=== PATIENT | female | born 1940 | race Caucasian/White ===

== ENCOUNTER 2017-04-20 12:28 | Observation (INO) | payer MEDICARE, SELFPAY ==
[2017-04-20 12:38] VITALS: BP 142/65; PULSE 66; RESP 18; TEMP 36.8; O2SAT 100; BMI 31.2
--- NOTE | 2017-04-20 12:49 | XR_ITS ---
XR chest 2V HISTORY: Right-sided pain with sweating ITS.REASON: RIGHT SHOULDER PAIN,NO INJURYU ORDERING PHYSICIAN: Daniel Rubio MD PATIENT AGE: 77 years COMPARISON: 10/18/2012 FINDINGS: The cardiomediastinal silhouette and pulmonary vascularity are within normal limits. The lungs are clear without infiltrates, suspicious nodules, or pleural effusions. There is evidence of old granulomatous disease. On the lateral view there is a nodular opacity along the lower aspect of the heart appears partially calcified and may be due to a lymph node. No acute bony abnormalities. IMPRESSION: No change with no acute finding
--- NOTE | 2017-04-20 13:06 | HMH.EDGENADL ---
ED Disposition Clinical Impression: Pre-syncope, HTN (hypertension), Hyperlipidemia, Chest pain, Coronary artery calcification Disposition: Still a Patient Condition on Discharge: Good Referrals: Sloane Sweeney APRN [Primary Care Provider] - - Critical Care Critical Care Time: No Attestation: On 04/20/17, the high probability of a clinically significant, sudden or life threatening deterioration of the following system(s) required my full and direct attention, intervention and personal management. The time I documented below is in addition to time spent performing reported procedures but includes the following listed in this critical care notation. Medical Decision Making - Medical Records Medical records reviewed: Yes: I reviewed the patient's medical records. Vital Signs: 04/20/17 12:38 Temperature 98.2 F Temperature Source Oral Pulse Rate [Right Brachial] 66 Respiratory Rate 18 Blood Pressure [Right Arm] 142/65 Blood Pressure Mean [Right Arm] 90 Blood Pressure Source [Right Arm] Automatic Cuff Blood Pressure Position [Right Arm] Sitting 02 Sat by Pulse Oximetry 100 Oxygen Delivery Method Room Air - Lab Data Lab Results 04/20/17 13:15: WBC 12.0 H, RBC 3.74 L, Hgb 12.4, Hct 36.6 L, MCV 98.0, MCH 33.3 H, MCHC 34.0, RDW 12.6, Plt Count 196, MPV 8.7, Neut % (Auto) 85.4 H, Lymph % (Auto) 9.6 L, [place] % (Auto) 3.8, Eos % (Auto) 1.0, Baso % (Auto) 0.2, Neut # (Auto) 10.3 H, Lymph # (Auto) 1.1, [place] # (Auto) 0.5, Eos # (Auto) 0.1, Baso # (Auto) 0.0, Total Counted 100, Neutrophils % (Manual) 85 H, Band Neutrophils % 1.0, Lymphocytes % (Manual) 8 L, Monocytes % (Manual) 6, Platelet Estimate Normal, RBC Morphology Normal 04/20/17 13:15: D-Dimer 798 H* 04/20/17 13:15: B-Natriuretic Peptide 100 04/20/17 13:55: Sodium 139, Potassium 5.3 H, Chloride 104, Carbon Dioxide 27, Anion Gap 13.3, BUN 34 H, Creatinine 0.95, Estimated Creat Clear 65, Estimated GFR 57 L, Est GFR ( Amer) 69, Glucose 109 H, Calcium 9.1, Total Bilirubin 0.6, AST 14 L, ALT 23, Alkaline Phosphatase 55, Total Creatine Kinase 85, CK-MB (CK-2) 0.7, CK-MB (CK-2) Rel Index 0.8, Troponin I < 0.02, Total Protein 7.8, Albumin 3.7, Globulin 4.1 H, Albumin/Globulin Ratio 0.9 L 04/20/17 13:55: Lipase 68 L Result diagrams: 04/20/17 13:15 04/20/17 13:55 Orders (Tests/Meds): ED MEDICATIONS Discontinued Medications Generic Name Dose Route Start Last Admin Trade Name Freq PRN Reason Stop Dose Admin Iopamidol 75 ml 04/20/17 15:06 04/20/17 15:08 [id number]; 75ml Vial IV 04/20/17 15:07 75 ml ONCE ONE Administration Sodium Chloride 20 ml 04/20/17 15:06 04/20/17 15:08 Rad-Ns 20ml Vial IV 04/20/17 15:07 20 ml ONCE ONE Administration Sodium Chloride 10 ml 04/20/17 15:06 04/20/17 15:08 Rad-Saline Flush 10ml Syringe IV 04/20/17 15:07 10 ml ONCE ONE Administration Sodium Chloride 20 ml 04/20/17 15:07 04/20/17 15:09 Rad-Ns 20ml Vial IV 04/20/17 15:08 20 ml ONCE ONE Administration - CT Data CT Scan: Chest Time Received: 15:[address] Reviewed: Yes: I discussed the CT results w/the radiologist Preliminary Findings: Abnormal (No pulmonary embolism chronic changes. Dr. Clarke) - ECG Data Tracing #1 Normal sinus rhythm 67% per minute early repolarization no acute findings. ECG initial impression date: 04/20/17 ECG initial impression time: 13:11 - Magdy Inquiry Pt receiving controlled substance: No Magdy was queried for this patient: No Medical Decision Making Narrative: Due to elevated diameter the patient underwent a CT scan was negative for pulmonary embolism. Is positive for coronary artery calcification. I called her primary care physician spoke with Nhung to admit. Patient was notified. General Adult HPI - General Chief complaint: PAIN Stated complaint: right shoulder pain, cold sweat pale, dizzy Mode of Arrival: Ambulatory Limitations: No Limitations Description of Symptoms
--- NOTE | 2017-04-20 13:09 | ED_ITS ---
ED Disposition Clinical Impression: Pre-syncope, HTN (hypertension), Hyperlipidemia, Chest pain, Coronary artery calcification Disposition: Still a Patient Condition on Discharge: Good Referrals: Sloane Sweeney APRN [Primary Care Provider] - - Critical Care Critical Care Time: No Attestation: On 04/20/17, the high probability of a clinically significant, sudden or life threatening deterioration of the following system(s) required my full and direct attention, intervention and personal management. The time I documented below is in addition to time spent performing reported procedures but includes the following listed in this critical care notation. Medical Decision Making - Medical Records Medical records reviewed: Yes: I reviewed the patient's medical records. Vital Signs: 04/20/17 12:38 Temperature 98.2 F Temperature Source Oral Pulse Rate [Right Brachial] 66 Respiratory Rate 18 Blood Pressure [Right Arm] 142/65 Blood Pressure Mean [Right Arm] 90 Blood Pressure Source [Right Arm] Automatic Cuff Blood Pressure Position [Right Arm] Sitting 02 Sat by Pulse Oximetry 100 Oxygen Delivery Method Room Air - Lab Data Lab Results 04/20/17 13:15: WBC 12.0 H, RBC 3.74 L, Hgb 12.4, Hct 36.6 L, MCV 98.0, MCH 33.3 H, MCHC 34.0, RDW 12.6, Plt Count 196, MPV 8.7, Neut % (Auto) 85.4 H, Lymph % (Auto) 9.6 L, [place] % (Auto) 3.8, Eos % (Auto) 1.0, Baso % (Auto) 0.2, Neut # (Auto) 10.3 H, Lymph # (Auto) 1.1, [place] # (Auto) 0.5, Eos # (Auto) 0.1, Baso # (Auto) 0.0, Total Counted 100, Neutrophils % (Manual) 85 H, Band Neutrophils % 1.0, Lymphocytes % (Manual) 8 L, Monocytes % (Manual) 6, Platelet Estimate Normal, RBC Morphology Normal 04/20/17 13:15: D-Dimer 798 H* 04/20/17 13:15: B-Natriuretic Peptide 100 04/20/17 13:55: Sodium 139, Potassium 5.3 H, Chloride 104, Carbon Dioxide 27, Anion Gap 13.3, BUN 34 H, Creatinine 0.95, Estimated Creat Clear 65, Estimated GFR 57 L, Est GFR ( Amer) 69, Glucose 109 H, Calcium 9.1, Total Bilirubin 0.6, AST 14 L, ALT 23, Alkaline Phosphatase 55, Total Creatine Kinase 85, CK-MB (CK-2) 0.7, CK-MB (CK-2) Rel Index 0.8, Troponin I < 0.02, Total Protein 7.8, Albumin 3.7, Globulin 4.1 H, Albumin/Globulin Ratio 0.9 L 04/20/17 13:55: Lipase 68 L Result diagrams: 04/20/17 13:15 04/20/17 13:55 Orders (Tests/Meds): ED MEDICATIONS Discontinued Medications Generic Name Dose Route Start Last Admin Trade Name Freq PRN Reason Stop Dose Admin Iopamidol 75 ml 04/20/17 15:06 04/20/17 15:08 [id number]; 75ml Vial IV 04/20/17 15:07 75 ml ONCE ONE Administration Sodium Chloride 20 ml 04/20/17 15:06 04/20/17 15:08 Rad-Ns 20ml Vial IV 04/20/17 15:07 20 ml ONCE ONE Administration Sodium Chloride 10 ml 04/20/17 15:06 04/20/17 15:08 Rad-Saline Flush 10ml Syringe IV 04/20/17 15:07 10 ml ONCE ONE Administration Sodium Chloride 20 ml 04/20/17 15:07 04/20/17 15:09 Rad-Ns 20ml Vial IV 04/20/17 15:08 20 ml ONCE ONE Administration - CT Data CT Scan: Chest Time Received: 15:[address] Reviewed: Yes: I discussed the CT results w/the radiologist Preliminary Findings: Abnormal (No pulmonary embolism chronic changes. Dr. Clarke ) - ECG Data Tracing #1 Normal sinus rhythm 67% per minute early repolarization no acute findings. ECG initial impression [place]
[2017-04-20 13:40] LABS: Hematocrit 36.6 % (37.0-47.0); Hemoglobin 12.4 g/dL (12.2-16.2); Mean Corpuscular Hemoglobin 33.3 pg (27.0-31.2); Red Blood Count 3.74 M/mm3 (4.20-5.40); Red Cell Distribution Width 12.6 % (11.5-17.5)
[2017-04-20 13:41] LABS: Basophils % 0.2 % (0.1-2.0); Eosinophils # 0.1 K/mm3 (0.0-0.4); Lymphocytes # 1.1 K/mm3 (0.7-4.5); Lymphocytes % 9.6 K/mm3 (10-50); Mean Platelet Volume 8.7 fl (7.4-10.4); Monocytes # 0.5 K/mm3 (0.1-1.0); Monocytes % 3.8 % (1.7-9.3); Neutrophils # 10.3 K/mm3 (1.8-7.8); Neutrophils % 85.4 % (37.0-80.0); Platelet Count 196 K/mm3 (142-424)
[2017-04-20 13:42] LABS: MANUAL DIFFERENTIAL MANUAL DIFFERENTIAL (MANUAL DIFF)
[2017-04-20 13:52] LABS: D-Dimer 798 (0-400)
[2017-04-20 14:08] LABS: Lymphocytes % 8 % (10-50); Monocytes % 6 % (2-9); Neutrophils % 85 % (42-76); Platelet Estimate Normal; RBC Morphology Normal; Total Cells Counted 100
[2017-04-20 14:31] LABS: Creatine Kinase MB 0.7 mg/ml (0.0-3.6); Troponin I < 0.02 ng/ml (0.00-0.06)
[2017-04-20 14:32] LABS: Alanine Aminotransferase 23 U/L (12-78); Albumin Level 3.7 gm/dL (3.4-5.0); Albumin/Globulin Ratio 0.9 (1.1-1.8); Alkaline Phosphatase 55 U/L (46-116); Anion Gap 13.3 mEq/L (5-15); Aspartate Amino Transferase 14 U/L (15-37); Bilirubin,Total 0.6 mg/dL (0.2-1.0); Blood Urea Nitrogen 34 mg/dL (7-18); CKMB Relative Index 0.8 U/L (0-4.0); Calcium 9.1 mg/dL (8.5-10.1); Carbon Dioxide 27 mmol/L (21.0-32.0); Chloride 104 mmol/L (98-107); Creatine Kinase 85 U/L (26-192); Creatinine Clearance Estimated 65 mL/min (0-300); Creatinine,Serum 0.95 mg/dL (0.55-1.02); Estimated Glomerular Filt Rate 57 ml/min (>60); GFR (African American) 69 ML/MIN (>60); Globulin 4.1 gm/dl (1.3-3.2); Glucose 109 mg/dL (74-106); Potassium 5.3 mmoL/L (3.5-5.1); Sodium 139 mmol/L (136-145); Total Protein,Serum 7.8 gm/dL (6.4-8.2)
[2017-04-20 14:34] LABS: Lipase 68 u/L (73-393)
--- NOTE | 2017-04-20 14:40 | CT_ITS ---
CT angio chest HISTORY: Chest pain ITS.REASON: SCAPULAR PAIN, SWEATY, SOB ORDERING PHYSICIAN: Daniel Rubio MD PATIENT AGE: 77 years TECHNIQUE: Axial images obtained following the administration of 75 mL of Isovue 370 . Sagittal, and coronal reformatted images are also generated and reviewed. COMPARISON: None FINDINGS: There is no evidence of pulmonary embolus. No aortic dissection evident. There is minimal dilatation of the proximal descending thoracic aorta at 2.6 cm beyond the ductus origin. There is tortuosity of the thoracic aorta. There are coronary artery calcifications and calcification of the mitral valve annulus. There are scattered small lymph nodes in the mediastinum in the aortopulmonic window measuring up to 11 mm. There is mild thickening of the midthoracic esophagus which is nonspecific. Small hiatal hernia is present. No lobar consolidation or collapse. IMPRESSION: 1. No evidence of pulmonary embolus. 2. Coarse calcification of the mitral valve annulus. 3. Coronary artery disease. 4. Minimal dilatation proximal descending thoracic aorta at 2.6 cm 5. mild thickening of the mid esophagus with small hiatal hernia
[2017-04-20 15:54] VITALS: BMI 31.2
[2017-04-20 16:00] VITALS: PULSE 70
--- NOTE | 2017-04-20 16:18 | HMH.CNCARD ---
History of Present Illness Consult date: 04/20/17 Consult reason: chest pain Chief complaint: back pain, near syncope History of present illness: 77-year-old white female with history of hypertension and hyperlipidemia along with osteoarthritis was seen in the emergency department for back pain and near syncopal spell. Patient relates being at a [employer] meeting today when she developed right sided back pain underneath the right shoulder blade that was persistent. She developed diaphoresis and then developed lightheadedness and near faint feeling. Patient denies blacking out or passing out. She denies any chest pain, shortness of breath, nausea, vomiting or diarrhea. Denies any recent fever or chills. Cardiac history pertinent for history of stress test about 4 years ago with no need for further intervention. She does take an aspirin daily. EKG on admission to the emergency room shows sinus rhythm without acute changes. Initial troponin is normal along with a normal BNP. Chest x-ray is unremarkable but a CT of the chest was undertaken due to mildly elevated d-dimer but showed no evidence of pulmonary embolus. Of note was evidence of coronary calcification. Cardiology consulted for further evaluation. [facility] History Medical History: Reports:: Hyperlipidemia, Hypertension Other Medical History: Reports: Arthritis - *Social History Educational Level: Completed High School Smoking Status: Unknown if ever smoked Alcohol Intake: never - Psychiatric History Expresses thoughts of harming self/others: None Suicide Plan Description: No Plan Meds Allergies Allergy/AdvReac Type Severity Reaction Status Date / Time No Known Allergies Allergy Unknown Uncoded 02/21/17 14:23 Review of Systems - *Cardiovascular Denies chest pain, Denies chest pain with activity, Denies shortness of breath - *Respiratory Reports shortness of breath with activity - *Gastrointestinal Denies abdominal pain, Denies change in stools, Denies heartburn - *Musculoskeletal Reports back pain - *Neurologic Reports weakness Exam Vital signs and Labs for Last 24 Hours: Temp Pulse Resp BP Pulse Ox 98.2 F 66 18 142/65 100 04/20/17 12:38 04/20/17 12:38 04/20/17 12:38 04/20/17 12:38 04/20/17 12:38 - *Routine Neck Exam Absent: JVD, carotid bruit - *Routine Respiratory Exam Present: CTA bilaterally - *Routine Cardiovascular Exam Present: RRR. Absent: murmur - *Routine Abdominal Exam Present: soft. Absent: tenderness - *Routine Extremities Exam Absent: edema - *Routine Neurological Exam Present: alert, oriented X3, moving all extremities Assessment and Plan (1) Chest pain Current visit: Yes Status: Acute Category: Medical Code(s): R07.9 - Chest pain, unspecified (2) Coronary artery calcification Current visit: Yes Status: Acute Category: Medical Code(s): I25.10 - Atherosclerotic heart disease of [place] coronary artery without angina pectoris; I25.84 - Coronary atherosclerosis due to calcified coronary lesion (3) HTN (hypertension) Current visit: Yes Status: Acute Category: Medical Code(s): I10 - Essential (primary) hypertension (4) Hyperlipidemia Current visit: Yes Status: Acute Category: Medical Code(s): E78.5 - Hyperlipidemia, unspecified (5) Pre-syncope Current visit: Yes Status: Acute Category: Medical Code(s): R55 - Syncope and collapse With severe back pain and diaphoresis prior to near-syncope, this is felt to be vasovagal in origin. (6) Cardiac murmur Current visit: Yes Status: Acute Category: Medical Code(s): R01.1 - Cardiac murmur, unspecified - Assessment and plan all Dx Assessment and Plan for all problems:: 1. Agree with admission with serial cardiac enzymes to rule out coronary event. 2. Continue home medications. 3. Obtain an echocardiogram to evaluate left ventricular size and function due to history of hypertension and near syncop
[2017-04-20 16:51] VITALS: BP 124/85; PULSE 85; RESP 18; TEMP 36.8; O2SAT 98
[2017-04-20 17:08] VITALS: BP 126/62; PULSE 70; RESP 20; TEMP 36.7; O2SAT 98
--- NOTE | 2017-04-20 18:57 | PC.NURSE ---
Report given to Gia Estrada RN
[2017-04-20 20:00] VITALS: BP 105/43; PULSE 68; PULSE 70; RESP 20; TEMP 37.1; O2SAT 98
[2017-04-20 21:30] VITALS: O2SAT 98
--- NOTE | 2017-04-20 21:43 | HMH.HP ---
*Admission Date: 04/20/17 *Chief complaint: right shoulder blade pain and pre-syncope *History of present illness: 77 yr old female with history of hyperlipidemia and HTN presented to the ED after EMS evaluation for new onset right shoulder blade pain that was followed by diaphoresis and other pre-syncopal symptoms. She reports that pre-syncopal symptoms resolved by the time EMS arrived but it was recommended that she be evaluated in the ED. EKG and troponins negative, elevated DDimer in the ED but CT chest was negative for PE. CT chest did demonstrate evidence of coronary calcifications and mitral valve calcifications so cardiology was consulted. They have recommended monitoring overnight with GXT and echo in the AM. At time of my exam she is feeling well overall, continues to have some vague discomfort in her right scapular area but otherwise is comfortable. Has eaten her evening meal without difficulty. [facility] History I have reviewed the patient's past medical history: Yes Medical History: Reports:: Carotid Stenosis, Hyperlipidemia, Hypertension Denies:: Cancer, Diabetes Mellitus Type 1, Diabetes Mellitus Type 2, MRSA Other Medical History: Reports: Arthritis Laterality Cases: Left: Arthroscopy Hip, Bilateral: Arthroscopy Knee Other Surgeries: Yes: Appendectomy, Tubal Ligation Amputation: No Fractures: No - *Social History Educational Level: Completed High School Smoking Status: Never smoker Alcohol Intake: never Occupational Status: retired Housing: house Household Members: none - Psychiatric History Expresses thoughts of harming self/others: None Suicide Plan Description: No Plan *Family Hx:: Asthma, Cancer, Coronary Artery Disease, Diabetes, Heart Attack, Hyperlipidemia, Tuberculosis Review of Systems - Review of Systems Review of systems:: pertinent systems reviewed and negative unless documented below - *Neurologic Reports weakness Meds Home Medications Medication Instructions Recorded Confirmed Type Acetaminophen [Tylenol] 50 mg PO BID 04/20/17 04/20/17 History Alendronate Sodium 70 mg PO WEEKLY 04/20/17 04/20/17 History Aspirin [Adult Low Dose Aspirin EC] 81 mg PO DAILY 04/20/17 04/20/17 History Calcium Polycarbophil [Fiber Tabs] 625 mg PO DAILY 04/20/17 04/20/17 History Glucosamine & Chondroitin Cap 1 tab PO DAILY 04/20/17 04/20/17 History Lisinopril [Lisinopril 10mg Tab] 10 mg PO DAILY 04/20/17 04/20/17 History Miscellaneous [Miscellaneous oral 0 each PO DAILY 04/20/17 04/20/17 History tablet/capsule] Simvastatin 10 mg PO HS 04/20/17 04/20/17 History hydroCHLOROthiazide [HCTZ 12.5mg 12.5 mg PO DAILY 04/20/17 04/20/17 History cap] Allergies Allergy/AdvReac Type Severity Reaction Status Date / Time No Known Allergies Allergy Unknown Uncoded 02/21/17 14:23 Exam Vital signs and Labs for Last 24 Hours: Temp Pulse Resp BP Pulse Ox 98.8 F 68 20 105/43 98 04/20/17 20:00 04/20/17 20:00 04/20/17 20:00 04/20/17 20:00 04/20/17 20:00 Narrative: Pleasant female, resting in bed in NAD. ENT exam unremarkable, she does wear glasses. Heart with RRR, 1/6 systolic murmur at mitral area which is a new exam finding. Lungs are clear. Neck is supple without bruits. Abdomen soft, NT/ND, BS present. No edema. All extremities move equally and she does have some mild tenderness around the right scapula. No neurologic deficits. No rash. Assessment and Plan (1) Chest pain Current visit: Yes Status: Acute Category: Medical Code(s): R07.9 - Chest pain, unspecified (2) Coronary artery calcification Current visit: Yes Status: Acute Category: Medical Code(s): I25.10 - Atherosclerotic heart disease of [place] coronary artery without angina pectoris; I25.84 - Coronary atherosclerosis due to calcified coronary lesion (3) HTN (hypertension) Current visit: Yes Status: Acute Category: Medical Code(s): I10 - Essential (primary) hypertension (4) Hyperlipidemia Current visi
--- NOTE | 2017-04-20 21:47 | P.HP_ITS ---
*Admission Date: 04/20/17 *Chief complaint: right shoulder blade pain and pre-syncope *History of present illness: 77 yr old female with history of hyperlipidemia and HTN presented to the ED after EMS evaluation for new onset right shoulder blade pain that was followed by diaphoresis and other pre-syncopal symptoms. She reports that pre-syncopal symptoms resolved by the time EMS arrived but it was recommended that she be evaluated in the ED. EKG and troponins negative, elevated DDimer in the ED but CT chest was negative for PE. CT chest did demonstrate evidence of coronary calcifications and mitral valve calcifications so cardiology was consulted. They have recommended monitoring overnight with GXT and echo in the AM. At time of my exam she is feeling well overall, continues to have some vague discomfort in her right scapular area but otherwise is comfortable. Has eaten her evening meal without difficulty. [facility] History I have reviewed the patient's past medical history: Yes Medical History: Reports:: Carotid Stenosis, Hyperlipidemia, Hypertension Denies:: Cancer, Diabetes Mellitus Type 1, Diabetes Mellitus Type 2, MRSA Other Medical History: Reports: Arthritis Laterality Cases: Left: Arthroscopy Hip, Bilateral: Arthroscopy Knee Other Surgeries: Yes: Appendectomy, Tubal Ligation Amputation: No Fractures: No - *Social History Educational Level: Completed High School Smoking Status: Never smoker Alcohol Intake: never Occupational Status: retired Housing: house Household Members: none - Psychiatric History Expresses thoughts of harming self/others: None Suicide Plan Description: No Plan *Family Hx:: Asthma, Cancer, Coronary Artery Disease, Diabetes, Heart Attack, Hyperlipidemia, Tuberculosis Review of Systems - Review of Systems Review of systems:: pertinent systems reviewed and negative unless documented below - *Neurologic Reports weakness Meds Home Medications Medication Instructions Recorded Confirmed Type Acetaminophen [Tylenol] 50 mg PO BID 04/20/17 04/20/17 History Alendronate Sodium 70 mg PO WEEKLY 04/20/17 04/20/17 History Aspirin [Adult Low Dose Aspirin EC] 81 mg PO DAILY 04/20/17 04/20/17 History Calcium Polycarbophil [Fiber Tabs] 625 mg PO DAILY 04/20/17 04/20/17 History Glucosamine & Chondroitin Cap 1 tab PO DAILY 04/20/17 04/20/17 History Lisinopril [Lisinopril 10mg Tab] 10 mg PO DAILY 04/20/17 04/20/17 History Miscellaneous [Miscellaneous oral 0 each PO DAILY 04/20/17 04/20/17 History tablet/capsule] Simvastatin 10 mg PO HS 04/20/17 04/20/17 History hydroCHLOROthiazide [HCTZ 12.5mg 12.5 mg PO DAILY 04/20/17 04/20/17 History cap] Allergies Allergy/AdvReac Type Severity Reaction Status Date / Time No Known Allergies Allergy Unknown Uncoded 02/21/17 14:23 Exam Vital signs and Labs for Last 24 Hours: Temp Pulse Resp BP Pulse Ox 98.8 F 68 20 105/43 98 04/20/17 20:00 04/20/17 20:00 04/20/17 20:00 04/20/17 20:00 04/20/17 20:00 Narrative: Pleasant female, resting in bed in NAD. ENT exam unremarkable, she does wear glasses. Heart with RRR, 1/6 systolic murmur at mitral area which is a new exam finding. Lungs are clear. Neck is supple without bruits. Abdomen soft, NT/ND, BS present. No edema. All extremities move equally and she does have some mild tenderness around the right scapula. No neurologic deficits. No rash. Assessment and Plan (1) Chest pain Current visit
[2017-04-20 22:14] LABS: Troponin I < 0.02 ng/ml (0.00-0.06)
[2017-04-21] VITALS: BP 76/32; PULSE 67; PULSE 80; RESP 18; TEMP 36.9; O2SAT 95
--- NOTE | 2017-04-21 00:12 | PC.NURSE ---
NURSE WAS MADE AWARE OF LOW BLOOD PRESSURE
--- NOTE | 2017-04-21 00:51 | PC.NURSE ---
ON SRNA 0000 VITAL SIGN ROUND BP OF 76/32 WAS REPORTED TO RN, AT 0039 BP WAS REASSESSED IN THE LEFT ARM WITH AN AUTOMATIC CUFF WHILE THE PT WAS SUPINE, BP OF 104/48. PT STATES SHE TOOK HER OWN HOME MEDICATION FOR BP WHICH IS LISINOPRIL 10 MG, PTS HOME MEDICATIONS HAVE BEEN LOCKED IN THE MEDICATION DRAWER, WILL CONTINUE TO MONITOR.
--- NOTE | 2017-04-21 03:22 | PC.NURSE ---
NO CHANGES NOTED SINCE PREVIOUS ASSESSMENT, PT DENIES SOA, PT STATES THAT THE RIGHT SCAPULAR AREA IS TENDER AND RATES PAIN 2/10, PT STATES IT IS MUCH BETTER THAN BEFORE, PT AMBULATING TO THE BATHROOM WELL WITH STANDBY ASSIST, PT HAS RESTED WELL THIS SHIFT, BREATH SOUNDS ARE CLEAR TO AUSCULTATION, PT HAS MAINTAINED O2 SATS AT OR ABOVE 90 ON ROOM AIR, BOWEL SOUNDS ARE ACTIVE, VSS, NO ACUTE DISTRESS NOTED AT THIS TIME, CALL LIGHT IN REACH, FAMILY AT BEDSIDE, WILL CONTINUE TO MONITOR.
[2017-04-21 04:00] VITALS: BP 104/41; PULSE 69; PULSE 80; RESP 18; TEMP 36.9; O2SAT 97
[2017-04-21 04:26] LABS: Basophils % 0.3 % (0.1-2.0); Eosinophils # 0.3 K/mm3 (0.0-0.4); Lymphocytes # 2.3 K/mm3 (0.7-4.5); Lymphocytes % 20.8 K/mm3 (10-50); Mean Corpuscular HGB Conc 33.1 g/dL (31.8-35.4); Mean Corpuscular Volume 96.4 fl (81-99); Mean Platelet Volume 8.9 fl (7.4-10.4); Monocytes # 0.6 K/mm3 (0.1-1.0); Monocytes % 4.9 % (1.7-9.3); Neutrophils # 7.9 K/mm3 (1.8-7.8); Neutrophils % 71.1 % (37.0-80.0); Platelet Count 189 K/mm3 (142-424); Red Blood Count 3.42 M/mm3 (4.20-5.40); Red Cell Distribution Width 12.6 % (11.5-17.5); White Blood Count 11.1 K/mm3 (4.8-10.8)
[2017-04-21 04:29] LABS: Anion Gap 12.8 mEq/L (5-15); Blood Urea Nitrogen 28 mg/dL (7-18); Carbon Dioxide 26 mmol/L (21.0-32.0); Chloride 105 mmol/L (98-107); Creatinine Clearance Estimated 65 mL/min (0-300); Creatinine,Serum 0.88 mg/dL (0.55-1.02); Estimated Glomerular Filt Rate 63 ml/min (>60); GFR (African American) 76 ML/MIN (>60); Glucose 94 mg/dL (74-106); Potassium 3.8 mmoL/L (3.5-5.1); Sodium 140 mmol/L (136-145)
[2017-04-21 04:38] LABS: Troponin I < 0.02 ng/ml (0.00-0.06)
[2017-04-21 05:57] LABS: Hemoglobin 11.1 g/dL (12.2-16.2)
--- NOTE | 2017-04-21 07:00 | CA_ITS ---
PROCEDURE: INDICATIONS FOR THE TEST: Chest pain X COPD Heart MurmurX Tobacco Smoking Palpitations Fatigue SyncopeX Edema HypertensionXDiabetes Mellitus Rheumatic Fever SOB [place] Obesity HyperlipidemiaX Family History HD Additional History CAD HEAVY MAC PATIENT INFORMATION HEIGHT: 65 WEIGHT:188 GENDER: Female B/P:105/43 2-D/M-MODE INTERPRETATION: 2-D MEASUREMENTS OBSERVED VALUES IN CMS Right Ventricular Dimension (RVDd) 1.8 Interventricular Septum (Thickness)(IVsd) .9 Left Ventricular Internal Dimensions(LVIDd) 5.6 Left Ventricular Posterior Wall (Thickness)(LVPWd) 1.1 Aortic Root 2.9 Aortic Cusp Separation 1.5 Left Atrial Dimensions (LAD) 3.9 2D 1. Left atrium is mildly enlarged, left ventricle is normal size, there is mild qualitative concentric left ventricular hypertrophy, visually estimated ejection fraction of 55% with no obvious wall motion abnormality. 2. The right atrium is mildly enlarged, right ventricle is normal size and contractility. 3. The aortic valve is thickened and calcified with mild restriction the leaflet mobility 4. The mitral valve has dense mitral annular calcification. 5. The tricuspid valve is grossly normal 6. The pulmonic valve is poorly visualized 7. No significant pericardial effusion noted. DOPPLER INTERROGATION: The maximum aortic out flow velocity recorded study 2.3 m/s resulting in a mean gradient across valve of 11 mmHg represents mild aortic stenosis, there is no significant aortic insufficiency seen. Grade 1 diastolic dysfunction seen with tissue Doppler evidence of raised left atrial pressure, mild mitral and tricuspid regurgitation seen, tricuspid and jet velocity insufficient for acquisition of the right ventricular systolic pressure. CONCLUSION: 1. Mild biatrial enlargement, normal left ventricular size, mild concentric left ventricular hypertrophy, visually estimated ejection fraction 55% with no obvious regional wall motion abnormality, grade 1 diastolic dysfunction seen with tissue Doppler evidence of raised left atrial pressure. 2. Thickened and calcified aortic valve with mild aortic stenosis, there is no aortic insufficiency. 3. Mild mitral and tricuspid regurgitation 4. No significant pericardial effusion noted.
--- NOTE | 2017-04-21 07:25 | PC.NURSE ---
Report given to Belén Moreira RN
--- NOTE | 2017-04-21 07:40 | HMH.PNCARD ---
Subjective Date: 04/21/17 Time: 07:40 Principal diagnosis: back pain, near syncope Interval history: 77 yo WF in bed in NAD. No chest pain, back pain or near syncope symptoms overnight. Troponins normal X 3. Going for echo and [employer] today. Review of Systems - *Cardiovascular Denies chest pain - *Respiratory Denies shortness of breath - *Neurologic Reports weakness Meds Home Medications Medication Instructions Recorded Confirmed Type Acetaminophen [Tylenol] 50 mg PO BID 04/20/17 04/20/17 History Alendronate Sodium 70 mg PO WEEKLY 04/20/17 04/20/17 History Aspirin [Adult Low Dose Aspirin EC] 81 mg PO DAILY 04/20/17 04/20/17 History Calcium Polycarbophil [Fiber Tabs] 625 mg PO DAILY 04/20/17 04/20/17 History Glucosamine & Chondroitin Cap 1 tab PO DAILY 04/20/17 04/20/17 History Lisinopril [Lisinopril 10mg Tab] 10 mg PO DAILY 04/20/17 04/20/17 History Miscellaneous [Miscellaneous oral 0 each PO DAILY 04/20/17 04/20/17 History tablet/capsule] Simvastatin 10 mg PO HS 04/20/17 04/20/17 History hydroCHLOROthiazide [HCTZ 12.5mg 12.5 mg PO DAILY 04/20/17 04/20/17 History cap] Allergies Allergy/AdvReac Type Severity Reaction Status Date / Time No Known Allergies Allergy Unknown Uncoded 02/21/17 14:23 Exam Vital signs and Labs for Last 24 Hours: Temp Pulse Resp BP Pulse Ox 98.5 F 69 18 104/41 97 04/21/17 04:00 04/21/17 04:00 04/21/17 04:00 04/21/17 04:00 04/21/17 04:00 Laboratory Results - last 24 hr 04/20/17 21:50: Troponin I < 0.02 04/21/17 04:15: Troponin I < 0.02 04/21/17 04:15: WBC 11.1 H, RBC 3.42 L, Hgb 11.1 L D, Hct 33.0 L, MCV 96.4, MCH 32.0 H, MCHC 33.1, RDW 12.6, Plt Count 189, MPV 8.9, Neut % (Auto) 71.1, Lymph % (Auto) 20.8, [place] % (Auto) 4.9, Eos % (Auto) 3.0, Baso % (Auto) 0.3, Neut # (Auto) 7.9 H, Lymph # (Auto) 2.3, [place] # (Auto) 0.6, Eos # (Auto) 0.3, Baso # (Auto) 0.0 04/21/17 04:15: Sodium 140, Potassium 3.8 D, Chloride 105, Carbon Dioxide 26, Anion Gap 12.8, BUN 28 H, Creatinine 0.88, Estimated Creat Clear 65, Estimated GFR 63, Est GFR ( Amer) 76, Glucose 94 I & O for Last 24 hours: Intake & Output 04/18/17 04/19/17 04/20/17 04/21/17 11:59 11:59 11:59 11:59 Intake Total 120 / 120 Balance 120 / 120 - *Routine Respiratory Exam Present: CTA bilaterally - *Routine Cardiovascular Exam Present: RRR, murmur Plan - Patient/Caregiver Discharge Instructions Activity: Check echo results and Redd myoview today. Home if normal. - Follow Up Plan
--- NOTE | 2017-04-21 07:44 | P.PN_ITS ---
Subjective Date: 04/21/17 Time: 07:40 Principal diagnosis: back pain, near syncope Interval history: 77 yo WF in bed in NAD. No chest pain, back pain or near syncope symptoms overnight. Troponins normal X 3. Going for echo and [employer] today. Review of Systems - *Cardiovascular Denies chest pain - *Respiratory Denies shortness of breath - *Neurologic Reports weakness Meds Home Medications Medication Instructions Recorded Confirmed Type Acetaminophen [Tylenol] 50 mg PO BID 04/20/17 04/20/17 History Alendronate Sodium 70 mg PO WEEKLY 04/20/17 04/20/17 History Aspirin [Adult Low Dose Aspirin EC] 81 mg PO DAILY 04/20/17 04/20/17 History Calcium Polycarbophil [Fiber Tabs] 625 mg PO DAILY 04/20/17 04/20/17 History Glucosamine & Chondroitin Cap 1 tab PO DAILY 04/20/17 04/20/17 History Lisinopril [Lisinopril 10mg Tab] 10 mg PO DAILY 04/20/17 04/20/17 History Miscellaneous [Miscellaneous oral 0 each PO DAILY 04/20/17 04/20/17 History tablet/capsule] Simvastatin 10 mg PO HS 04/20/17 04/20/17 History hydroCHLOROthiazide [HCTZ 12.5mg 12.5 mg PO DAILY 04/20/17 04/20/17 History cap] Allergies Allergy/AdvReac Type Severity Reaction Status Date / Time No Known Allergies Allergy Unknown Uncoded 02/21/17 14:23 Exam Vital signs and Labs for Last 24 Hours: Temp Pulse Resp BP Pulse Ox 98.5 F 69 18 104/41 97 04/21/17 04:00 04/21/17 04:00 04/21/17 04:00 04/21/17 04:00 04/21/17 04:00 Laboratory Results - last 24 hr 04/20/17 21:50: Troponin I < 0.02 04/21/17 04:15: Troponin I < 0.02 04/21/17 04:15: WBC 11.1 H, RBC 3.42 L, Hgb 11.1 L D, Hct 33.0 L, MCV 96.4, MCH 32.0 H, MCHC 33.1, RDW 12.6, Plt Count 189, MPV 8.9, Neut % (Auto) 71.1, Lymph % (Auto) 20.8, [place] % (Auto) 4.9, Eos % (Auto) 3.0, Baso % (Auto) 0.3, Neut # ( Auto) 7.9 H, Lymph # (Auto) 2.3, [place] # (Auto) 0.6, Eos # (Auto) 0.3, Baso # ( Auto) 0.0 04/21/17 04:15: Sodium 140, Potassium 3.8 D, Chloride 105, Carbon Dioxide 26, Anion Gap 12.8, BUN 28 H, Creatinine 0.88, Estimated Creat Clear 65, Estimated GFR 63, Est GFR ( Amer) 76, Glucose 94 I & O for Last 24 hours: Intake & Output 04/18/17 04/19/17 04/20/17 04/21/17 11:59 11:59 11:59 11:59 Intake Total 120 / 120 Balance 120 / 120 - *Routine Respiratory Exam Present: CTA bilaterally - *Routine Cardiovascular Exam Present: RRR, murmur Plan - Patient/Caregiver Discharge Instructions Activity: Check echo results and Redd myoview today. Home if normal. - Follow Up Plan
[2017-04-21 07:49] VITALS: BP 98/47; PULSE 63; RESP 20; TEMP 36.8; O2SAT 95
--- NOTE | 2017-04-21 08:00 | P.PN_ITS ---
Internal Medicine - PN: Subj *Date: 04/21/17 *Time: 07:59 Interval history: Patient had a comfortable night, no further pain, is pleasant, alert, oriented ? 3. Exam Vital signs and Labs for Last 24 Hours: Temp Pulse Resp BP Pulse Ox 98.2 F 63 20 98/47 95 04/21/17 07:49 04/21/17 07:49 04/21/17 07:49 04/21/17 07:49 04/21/17 07:49 Laboratory Results - last 24 hr 04/20/17 21:50: Troponin I < 0.02 04/21/17 04:15: Troponin I < 0.02 04/21/17 04:15: WBC 11.1 H, RBC 3.42 L, Hgb 11.1 L D, Hct 33.0 L, MCV 96.4, MCH 32.0 H, MCHC 33.1, RDW 12.6, Plt Count 189, MPV 8.9, Neut % (Auto) 71.1, Lymph % (Auto) 20.8, [place] % (Auto) 4.9, Eos % (Auto) 3.0, Baso % (Auto) 0.3, Neut # ( Auto) 7.9 H, Lymph # (Auto) 2.3, [place] # (Auto) 0.6, Eos # (Auto) 0.3, Baso # ( Auto) 0.0 04/21/17 04:15: Sodium 140, Potassium 3.8 D, Chloride 105, Carbon Dioxide 26, Anion Gap 12.8, BUN 28 H, Creatinine 0.88, Estimated Creat Clear 65, Estimated GFR 63, Est GFR ( Amer) 76, Glucose 94 I & O for Last 24 hours: Intake & Output 04/18/17 04/19/17 04/20/17 04/21/17 11:59 11:59 11:59 11:59 Intake Total 120 / 120 Balance 120 / 120 Narrative: Alert, oriented ?3. Cranial nerves intact, lungs clear, heart rate regular without murmurs. No edema. Assessment and Plan (1) Chest pain Current visit: Yes Status: Acute Category: Medical Code(s): R07.9 - Chest pain, unspecified (2) Coronary artery calcification Current visit: Yes Status: Acute Category: Medical Code(s): I25.10 - Atherosclerotic heart disease of [place] coronary artery without angina pectoris ; I25.84 - Coronary atherosclerosis due to calcified coronary lesion (3) HTN (hypertension) Current visit: Yes Status: Acute Category: Medical Code(s): I10 - Essential (primary) hypertension (4) Hyperlipidemia Current visit: Yes Status: Acute Category: Medical Code(s): E78.5 - Hyperlipidemia, unspecified (5) Pre-syncope Current visit: Yes Status: Acute Category: Medical Code(s): R55 - Syncope and collapse (6) Cardiac murmur Current visit: Yes Status: Acute Category: Medical Code(s): R01.1 - Cardiac murmur, unspecified (7) Leukocytosis Current visit: Yes Status: Acute Category: Medical Code(s): D72.829 - Elevated white blood cell count, unspecified - Assessment and plan all Dx Assessment and Plan for all problems:: Echocardiogram and stress test today. If both of these are normal given her normal enzymes, atypical pain and normal EKG pattern we will discharge home. Plan for right upper quadrant ultrasound on Monday given her right shoulder pain and food relationship.
--- NOTE | 2017-04-21 08:03 | HMH.PHAVTE ---
[facility] Pharmacy VTE Monitoring - Patient Demographics Admission date: 04/20/17 Report Date: 04/21/17 Time: 08:03 Allergies/Adverse Reactions: Patient Allergies No Known Allergies Allergy (Unknown, Uncoded 02/21/17 14:23) Height: 1.65 m Weight: 85.332 kg Patient Problems: Current Active Problems Pre-syncope (Acute) HTN (hypertension) (Acute) Hyperlipidemia (Acute) Chest pain (Acute) Coronary artery calcification (Acute) Cardiac murmur (Acute) Leukocytosis (Acute) - VTE Risk Labs: VTE Related Lab Results Hgb 11.1 g/dL (12.2-16.2) L D 04/21/17 04:15 Hct 33.0 % (37.0-47.0) L 04/21/17 04:15 Plt Count 189 K/mm3 (142-424) 04/21/17 04:15 BUN 28 mg/dL (7-18) H 04/21/17 04:15 Creatinine 0.88 mg/dL (0.55-1.02) 04/21/17 04:15 Estimated Creat Clear 65 mL/min (0-300) 04/21/17 04:15 Was VTE Risk Assessment Performed: Yes VTE Score: 2 VTE Risk Level: Low Risk Clinical Trial Participant: No - Prophylaxis VTE Prophylaxis Ordered?: Yes Types of VTE Prophylaxis: TEDS Knee High Location of Applied Device: Bilateral Lower Extremeties
--- NOTE | 2017-04-21 10:30 | NM_ITS ---
NM vero perf SPECT rest str CLINICAL INDICATION: Chest pain, shortness of air, malaise, coronary artery disease ITS.REASON: back pain, near syncope, HTN, coronary calcificati ORDERING PHYSICIAN: Sherman Martinez MD PATIENT AGE: 77 years COMPARISON: None DOSE: 10.3 mCi technetium Myoview intravenously at rest followed by 29.8 mCi technetium Myoview following the intravenous administration of 0.4 mg of Lexiscan. Resting blood pressure is 117/47. Stress blood pressure 131/56. FINDINGS: Ejection fraction is calculated to be 72%. No obvious wall motion abnormalities. SPECT and polar map images reviewed. No fixed or reversible defects are evident that would indicate infarction or ischemia IMPRESSION: 1. Normal ejection fraction. 2. No evidence of ischemia or infarction
[2017-04-21 11:36] VITALS: BP 90/48; PULSE 70; RESP 20; TEMP 36.8; O2SAT 95
--- NOTE | 2017-04-21 12:30 | PC.NURSE ---
PATIENT OFF THE UNIT FOR HER STRESS TEST.
[2017-04-21 15:52] VITALS: BP 100/42; PULSE 66; RESP 20; TEMP 36.8; O2SAT 97
--- NOTE | 2017-04-21 16:12 | HMH.DCSUM ---
General - General Admission date: 04/20/17 Discharge date: 04/21/17 HPI HPI: 77 yr old female with history of hyperlipidemia and HTN presented to the ED after EMS evaluation for new onset right shoulder blade pain that was followed by diaphoresis and other pre-syncopal symptoms. She reports that pre-syncopal symptoms resolved by the time EMS arrived but it was recommended that she be evaluated in the ED. EKG and troponins negative, elevated DDimer in the ED but CT chest was negative for PE. CT chest did demonstrate evidence of coronary calcifications and mitral valve calcifications so cardiology was consulted. They have recommended monitoring overnight with GXT and echo in the AM. At time of my exam she is feeling well overall, continues to have some vague discomfort in her right scapular area but otherwise is comfortable. Has eaten her evening meal without difficulty. Objective Vital signs: Temp Pulse Resp BP Pulse Ox 98.3 F 66 20 100/42 97 04/21/17 15:52 04/21/17 15:52 04/21/17 15:52 04/21/17 15:52 04/21/17 15:52 Narrative: On the time of discharge patient's pleasant, talkative, oriented ?3, cardiopulmonary exam unremarkable, no ectopic beats, no edema. No abdominal tenderness. Hospital Course Hospital Course: Patient was admitted, ruled out for myocardial infarction. Serial enzymes and EKG testing was unremarkable. Echocardiogram showed normal ejection fraction and no significant valvular abnormalities and Myoview Lexiscan showed no evidence of ischemia. Patient will be discharged home. Gallbladder ultrasound on Monday, close follow-up in our office on . Results Labs on day of discharge: Labs from last 24 hours 04/21/17 04/21/17 04/21/17 04:15 04:15 04:15 WBC 11.1 H RBC 3.42 L Hgb 11.1 L D Hct 33.0 L MCV 96.4 MCH 32.0 H MCHC 33.1 RDW 12.6 Plt Count 189 MPV 8.9 Neut % (Auto) 71.1 Lymph % (Auto) 20.8 [place] % (Auto) 4.9 Eos % (Auto) 3.0 Baso % (Auto) 0.3 Neut # (Auto) 7.9 H Lymph # (Auto) 2.3 [place] # (Auto) 0.6 Eos # (Auto) 0.3 Baso # (Auto) 0.0 Sodium 140 Potassium 3.8 D Chloride 105 Carbon Dioxide 26 Anion Gap 12.8 BUN 28 H Creatinine 0.88 Estimated Creat Clear 65 Estimated GFR 63 Est GFR ( Amer) 76 Glucose 94 Troponin I < 0.02 04/20/17 21:50 WBC RBC Hgb Hct MCV MCH MCHC RDW Plt Count MPV Neut % (Auto) Lymph % (Auto) [place] % (Auto) Eos % (Auto) Baso % (Auto) Neut # (Auto) Lymph # (Auto) [place] # (Auto) Eos # (Auto) Baso # (Auto) Sodium Potassium Chloride Carbon Dioxide Anion Gap BUN Creatinine Estimated Creat Clear Estimated GFR Est GFR ( Amer) Glucose Troponin I < 0.02 DS: Diagnosis - Discharge Diagnosis (1) Chest pain Status: Resolved (2) Coronary artery calcification Status: Ruled-out (3) HTN (hypertension) Status: Acute (4) Hyperlipidemia Status: Acute (5) Pre-syncope Status: Acute (6) Cardiac murmur Status: Acute (7) Leukocytosis Status: Acute Discharge Plan - Patient Discharge Instructions ACTIVITY: Continue current activity DIET: continue same diet - Follow up Plan Follow up with: Sloane Sweeney APRN [Primary Care Provider] - 04/27/17 12:00 pm Disposition: Home, Self-Long Term Medications: Home Medications Medication Instructions Recorded Confirmed Type Alendronate Sodium 70 mg PO WEEKLY 04/20/17 04/20/17 History Aspirin [Adult Low Dose Aspirin EC] 81 mg PO DAILY 04/20/17 04/20/17 History Lisinopril [Lisinopril 10mg Tab] 10 mg PO BID 04/20/17 04/21/17 History hydroCHLOROthiazide [HCTZ 12.5mg 12.5 mg PO DAILY 04/20/17 04/20/17 History cap] Acetaminophen [Acetaminophen Extra 500 mg PO BID 04/21/17 04/21/17 History Strength] Calcium Carbonate/Vitamin D3 1 tab PO DAILY 04/21/17 04/21/17 History [Caltr
--- NOTE | 2017-04-21 16:15 | P.DS_ITS ---
General - General Admission date: 04/20/17 Discharge date: 04/21/17 HPI HPI: 77 yr old female with history of hyperlipidemia and HTN presented to the ED after EMS evaluation for new onset right shoulder blade pain that was followed by diaphoresis and other pre-syncopal symptoms. She reports that pre-syncopal symptoms resolved by the time EMS arrived but it was recommended that she be evaluated in the ED. EKG and troponins negative, elevated DDimer in the ED but CT chest was negative for PE. CT chest did demonstrate evidence of coronary calcifications and mitral valve calcifications so cardiology was consulted. They have recommended monitoring overnight with GXT and echo in the AM. At time of my exam she is feeling well overall, continues to have some vague discomfort in her right scapular area but otherwise is comfortable. Has eaten her evening meal without difficulty. Objective Vital signs: Temp Pulse Resp BP Pulse Ox 98.3 F 66 20 100/42 97 04/21/17 15:52 04/21/17 15:52 04/21/17 15:52 04/21/17 15:52 04/21/17 15:52 Narrative: On the time of discharge patient's pleasant, talkative, oriented ?3, cardiopulmonary exam unremarkable, no ectopic beats, no edema. No abdominal tenderness. Hospital Course Hospital Course: Patient was admitted, ruled out for myocardial infarction. Serial enzymes and EKG testing was unremarkable. Echocardiogram showed normal ejection fraction and no significant valvular abnormalities and Myoview Lexiscan showed no evidence of ischemia. Patient will be discharged home. Gallbladder ultrasound on Monday, close follow -up in our office on . Results Labs on day of discharge: Labs from last 24 hours 04/21/17 04/21/17 04/21/17 04:15 04:15 04:15 WBC 11.1 H RBC 3.42 L Hgb 11.1 L D Hct 33.0 L MCV 96.4 MCH 32.0 H MCHC 33.1 RDW 12.6 Plt Count 189 MPV 8.9 Neut % (Auto) 71.1 Lymph % (Auto) 20.8 [place] % (Auto) 4.9 Eos % (Auto) 3.0 Baso % (Auto) 0.3 Neut # (Auto) 7.9 H Lymph # (Auto) 2.3 [place] # (Auto) 0.6 Eos # (Auto) 0.3 Baso # (Auto) 0.0 Sodium 140 Potassium 3.8 D Chloride 105 Carbon Dioxide 26 Anion Gap 12.8 BUN 28 H Creatinine 0.88 Estimated Creat Clear 65 Estimated GFR 63 Est GFR ( Amer) 76 Glucose 94 Troponin I < 0.02 04/20/17 21:50 WBC RBC Hgb Hct MCV MCH MCHC RDW Plt Count MPV Neut % (Auto) Lymph % (Auto) [place] % (Auto) Eos % (Auto) Baso % (Auto) Neut # (Auto) Lymph # (Auto) [place] # (Auto) Eos # (Auto) Baso # (Auto) Sodium Potassium Chloride Carbon Dioxide Anion Gap BUN Creatinine Estimated Creat Clear Estimated GFR Est GFR ( Amer) Glucose Troponin I < 0.02 DS: Diagnosis - Discharge Diagnosis (1) Chest pain Status: Resolved (2) Coron
--- NOTE | 2017-04-21 17:48 | PC.NURSE ---
PATIENT NOW LEAVING OFF THE UNIT WITH STAFF AND FAMILY. SHE UNDERSTANDS HER FOLLOW UP APPOINTMENTS.
--- NOTE | 2017-05-18 09:48 | P.CONS_ITS ---
History of Present Illness Consult date: 04/20/17 Consult reason: chest pain Chief complaint: back pain, near syncope History of present illness: 77-year-old white female with history of hypertension and hyperlipidemia along with osteoarthritis was seen in the emergency department for back pain and near syncopal spell. Patient relates being at a [employer] meeting today when she developed right sided back pain underneath the right shoulder blade that was persistent. She developed diaphoresis and then developed lightheadedness and near faint feeling. Patient denies blacking out or passing out. She denies any chest pain, shortness of breath, nausea, vomiting or diarrhea. Denies any recent fever or chills. Cardiac history pertinent for history of stress test about 4 years ago with no need for further intervention. She does take an aspirin daily. EKG on admission to the emergency room shows sinus rhythm without acute changes. Initial troponin is normal along with a normal BNP. Chest x-ray is unremarkable but a CT of the chest was undertaken due to mildly elevated d-dimer but showed no evidence of pulmonary embolus. Of note was evidence of coronary calcification. Cardiology consulted for further evaluation. [facility] History Medical History: Reports:: Hyperlipidemia, Hypertension Other Medical History: Reports: Arthritis - *Social History Educational Level: Completed High School Smoking Status: Unknown if ever smoked Alcohol Intake: never - Psychiatric History Expresses thoughts of harming self/others: None Suicide Plan Description: No Plan Meds Allergies Allergy/AdvReac Type Severity Reaction Status Date / Time No Known Allergies Allergy Unknown Uncoded 02/21/17 14:23 Review of Systems - *Cardiovascular Denies chest pain, Denies chest pain with activity, Denies shortness of breath - *Respiratory Reports shortness of breath with activity - *Gastrointestinal Denies abdominal pain, Denies change in stools, Denies heartburn - *Musculoskeletal Reports back pain - *Neurologic Reports weakness Exam Vital signs and Labs for Last 24 Hours: Temp Pulse Resp BP Pulse Ox 98.2 F 66 18 142/65 100 04/20/17 12:38 04/20/17 12:38 04/20/17 12:38 04/20/17 12:38 04/20/17 12:38 - *Routine Neck Exam Absent: JVD, carotid bruit - *Routine Respiratory Exam Present: CTA bilaterally - *Routine Cardiovascular Exam Present: RRR. Absent: murmur - *Routine Abdominal Exam Present: soft. Absent: tenderness - *Routine Extremities Exam Absent: edema - *Routine Neurological Exam Present: alert, oriented X3, moving all extremities Assessment and Plan (1) Chest pain Current visit: Yes Status: Acute Category: Medical Code(s): R07.9 - Chest pain, unspecified (2) Coronary artery calcification Current visit: Yes Status: Acute Category: Medical Code(s): I25.10 - Atherosclerotic heart disease of [place] coronary artery without angina pectoris ; I25.84 - Coronary atherosclerosis due to calcified coronary lesion (3) HTN (hypertension) Current visit: Yes Status: Acute Category: Medical Code(s): I10 - Essential (primary) hypertension (4) Hyperlipidemia Current visit: Yes Status: Acute Category: Medical Code(s): E78.5 - Hyperlipidemia, unspecified (5) Pre-syncope Current visit: Yes Status: Acute Category: Medical Code(s): R55 - Syncope and collapse With severe back pain and diaphoresis prior to earlene
== END 2017-04-21 17:48 | disposition home or self-care (01) ==
LOC: ER 15:44 → 2ND 16:56
PROVIDERS: Admitting Provider Internal Medicine Adolescent Medicine; Emergency Provider Emergency Medicine; PCP Nurse Practitioner Family; Visit Provider Internal Medicine Adolescent Medicine
DX: R07.9 Chest pain, unspecified (principal); I10 Essential (primary) hypertension; R55 Syncope and collapse; R01.1 Cardiac murmur, unspecified; E78.5 Hyperlipidemia, unspecified
CPT/HCPCS: 36415; 71046; 71275; 78452; 80048; 80053; 82550; 82553; 83690; 83880; 84484; 85007; 85025; 85378; 93005; 93017; 93306; 99284; A9502; G0378; J2785; Q9967

== ENCOUNTER → 2017-04-24 09:24 | Outpatient (CLI) | payer MEDICARE, SELFPAY ==
--- NOTE | 2017-04-24 09:31 | US_ITS ---
US abdomen limited Ordering Physician: Sherman Martinez MD Patient Age: 77 years: Female HISTORY: ITS.REASON: RUQ PAIN RUQ pain TECHNIQUE: Ultrasound right upper quadrant COMPARISON no prior dedicated abdominal study :CT chest April 2017 which includes only the uppermost abdomen used for comparison FINDINGS Pancreas. On only fair visualization of pancreas. Head body and medial tail grossly unremarkable and normal size. No cyst nor mass. Liver. No biliary ductal dilatation. No mass lesion. Overall satisfactory. Gallbladder:. No gallstones evident. No gallbladder.. No Wall thickening. Only question some minimal scant debris Common duct normal diameter 4 mm at hilum of liver. Right kidney appears normal measuring 9 cm in length, 4.5 cm x 5.3 cm. No hydronephrosis nor mass IMPRESSION: ] Right ultrasound within normal limits. No gallstones evident. Only scant debris in gallbladder. Common duct normal.
== END ==
PROVIDERS: PCP Nurse Practitioner Family; Visit Provider Internal Medicine Adolescent Medicine
DX: R10.11 Right upper quadrant pain (principal)
CPT/HCPCS: 76705

== ENCOUNTER → 2017-04-27 13:09 | Outpatient (CLI) | payer MEDICARE, SELFPAY | PROVIDERS: PCP Internal Medicine Adolescent Medicine; Visit Provider Nurse Practitioner Family | DX: R00.2 Palpitations (principal) | CPT/HCPCS: 93225; 93226 ==

== ENCOUNTER → 2017-06-08 13:47 | Outpatient (CLI) | payer MEDICARE, SELFPAY | PROVIDERS: PCP Internal Medicine Adolescent Medicine; Visit Provider Nurse Practitioner Family | DX: E66.9 Obesity, unspecified (principal); I49.9 Cardiac arrhythmia, unspecified; I10 Essential (primary) hypertension; G47.30 Sleep apnea, unspecified | CPT/HCPCS: G0399 ==

== ENCOUNTER → 2017-07-27 08:42 | Outpatient (CLI) | payer MEDICARE, SELFPAY ==
[2017-07-27 12:45] LABS: Alanine Aminotransferase 24 U/L (12-78); Albumin Level 3.7 gm/dL (3.4-5.0); Alkaline Phosphatase 56 U/L (46-116); Anion Gap 12.6 mEq/L (5-15); Aspartate Amino Transferase 22 U/L (15-37); Bilirubin,Total 0.3 mg/dL (0.2-1.0); Blood Urea Nitrogen 38 mg/dL (7-18); Calcium 9.5 mg/dL (8.5-10.1); Carbon Dioxide 28 mmol/L (21.0-32.0); Chloride 106 mmol/L (98-107); Chol/HDL Ratio 2.2 (1-3.5); Cholesterol 148 mg/dL (140-200); Creatinine,Serum 0.92 mg/dL (0.55-1.02); Estimated Glomerular Filt Rate 60 ml/min (>60); GFR (African American) 72 ML/MIN (>60); Globulin 3.8 gm/dl (1.3-3.2); Glucose 83 mg/dL (74-106); HDL Cholesterol 68 mg/dL (29-89); LDL Cholesterol 67 mg/dL (0-130); Potassium 5.6 mmoL/L (3.5-5.1); Sodium 141 mmol/L (136-145); Total Protein,Serum 7.5 gm/dL (6.4-8.2); Triglycerides 67 mg/dL (30-200); VLDL Cholesterol 13 mg/dL (0-40)
[2017-07-28 20:12] LABS: Vitamin D 25 Hydroxy 33.3 ng/mL (30.0-100.0)
== END ==
PROVIDERS: Visit Provider Nurse Practitioner Family
DX: I10 Essential (primary) hypertension (principal); E78.5 Hyperlipidemia, unspecified; M85.89 Other specified disorders of bone density and structure, multiple sites
CPT/HCPCS: 36415; 80053; 80061; 82652

== ENCOUNTER → 2017-08-01 10:45 | Outpatient (CLI) | payer MEDICARE, SELFPAY ==
--- NOTE | 2017-08-01 10:47 | MM_ITS ---
MM Dig screening mamm BI w/CAD CAD Screening ORDERING PHYSICIAN : Sloane Sweeney PATIENT AGE: 77 years GENDER: Female HISTORY. No hormones. No new complaints. Noncontributory family history. COMPARISON: Previous mammograms: May 2016, 2015, 2014. INDICATION: TECHNIQUE: Standard CC and MLO images were obtained. R2 CAD reviewed. FINDINGS: Generalized fatty replacement with some residual moderate density breast tissue immediate retroareolar region remaining. However we see no significant new areas concern. No dominant mass nor suspicious calcifications in either breast. RIGHT BREAST:Minimal density at the deep lateral right breast unchanged as is the small focal area of dense tissue immediate retroareolar region LEFT BREAST:. No significant new findings. Follow-up in one year. IMPRESSION: Stable bilateral mammogram. Generalized fatty replacement . Lower density breast with minimal residual glandular tissue retroareolar region BI-RADS Category: 1 Negative RECOMMENDED FOLLOW-UP: 1YR - 1 YEAR FOLLOW-UP (A letter has been sent to the patient regarding results of the study.)
== END ==
PROVIDERS: PCP Internal Medicine Adolescent Medicine; Visit Provider Nurse Practitioner Family
DX: Z12.31 Encounter for screening mammogram for malignant neoplasm of breast (principal)
CPT/HCPCS: 77067

== ENCOUNTER → 2017-10-11 15:04 | Outpatient (POV) | payer MEDICARE, SELFPAY | PROVIDERS: PCP Internal Medicine Adolescent Medicine | DX: Z00.00 Encounter for general adult medical examination without abnormal findings (principal) ==

== ENCOUNTER → 2018-02-05 08:21 | Outpatient (CLI) | payer MEDICARE, SELFPAY ==
[2018-02-05 11:13] LABS: Alanine Aminotransferase 27 U/L (12-78); Albumin Level 3.8 gm/dL (3.4-5.0); Albumin/Globulin Ratio 1.1 (1.1-1.8); Alkaline Phosphatase 55 U/L (46-116); Anion Gap 13.7 mEq/L (5-15); Aspartate Amino Transferase 19 U/L (15-37); Bilirubin,Total 0.4 mg/dL (0.2-1.0); Blood Urea Nitrogen 39 mg/dL (7-18); Calcium 9.2 mg/dL (8.5-10.1); Carbon Dioxide 27 mmol/L (21.0-32.0); Chloride 105 mmol/L (98-107); Cholesterol 157 mg/dL (140-200); Creatinine,Serum 1.02 mg/dL (0.55-1.02); Estimated Glomerular Filt Rate 53 ml/min (>60); GFR (African American) 64 ML/MIN (>60); Globulin 3.6 gm/dl (1.3-3.2); Glucose 89 mg/dL (74-106); HDL Cholesterol 80 mg/dL (29-89); LDL Cholesterol 62 mg/dL (0-130); Potassium 4.7 mmoL/L (3.5-5.1); Sodium 141 mmol/L (136-145); Total Protein,Serum 7.4 gm/dL (6.4-8.2); Triglycerides 75 mg/dL (30-200); VLDL Cholesterol 15 mg/dL (0-40)
== END ==
PROVIDERS: Visit Provider Nurse Practitioner Family
DX: I10 Essential (primary) hypertension (principal); E78.5 Hyperlipidemia, unspecified; M15.0 Primary generalized (osteo)arthritis
CPT/HCPCS: 36415; 80053; 80061; 82652

== ENCOUNTER → 2018-05-31 11:15 | Outpatient (CLI) | payer MEDICARE, SELFPAY ==
[2018-05-31 11:44] LABS: Basophils % 0.3 % (0.1-2.0); Eosinophils # 0.2 K/mm3 (0.0-0.4); Eosinophils % 1.8 % (0.1-12.0); Hematocrit 38.1 % (37.0-47.0); Lymphocytes # 1.8 K/mm3 (0.7-4.5); Lymphocytes % 21.4 % (10-50); Mean Corpuscular HGB Conc 31.6 g/dL (31.8-35.4); Mean Corpuscular Hemoglobin 32.2 pg (27.0-31.2); Mean Corpuscular Volume 101.8 fl (81-99); Monocytes # 0.5 K/mm3 (0.1-1.0); Monocytes % 5.4 % (1.7-9.3); Platelet Count 260 K/mm3 (142-424); Red Blood Count 3.74 M/mm3 (4.20-5.40); White Blood Count 8.4 K/mm3 (4.8-10.8)
[2018-05-31 14:12] LABS: Anion Gap 14.9 mEq/L (5-15); Blood Urea Nitrogen 35 mg/dL (7-18); Calcium 9.5 mg/dL (8.5-10.1); Carbon Dioxide 27 mmol/L (21.0-32.0); Chloride 105 mmol/L (98-107); Creatinine,Serum 1.03 mg/dL (0.55-1.02); Estimated Glomerular Filt Rate 52 ml/min (>60); GFR (African American) 63 ML/MIN (>60); Glucose 80 mg/dL (74-106); Potassium 4.9 mmoL/L (3.5-5.1); Sodium 142 mmol/L (136-145); Thyroid Stimulating Hormone 1.26 uIU/ml (0.358-3.740)
[2018-06-01 09:20] LABS: Ferritin 62 ng/mL (8-388)
[2018-06-02 05:17] LABS: Iron 99 ug/dL (27-139); UIBC 235 ug/dL (118-369)
[2018-06-03 18:26] LABS: Folate >20.0 ng/mL (>3.0)
[2018-06-03 18:27] LABS: Iron Saturation 30 % (15-55); Vitamin B12 409 pg/mL (232-1245)
== END ==
PROVIDERS: Visit Provider Nurse Practitioner Family
DX: R00.2 Palpitations (principal); D50.9 Iron deficiency anemia, unspecified; I10 Essential (primary) hypertension
CPT/HCPCS: 36415; 80048; 82607; 82728; 82746; 83540; 83550; 83735; 84443; 85025

== ENCOUNTER → 2018-06-11 08:25 | Outpatient (CLI) | payer MEDICARE, SELFPAY ==
--- NOTE | 2018-06-11 08:31 | CA_ITS ---
PROCEDURE: 2-D M-mode and color Doppler study INDICATIONS FOR THE TEST: Chest pain COPD Heart MurmurX Tobacco Smoking Palpitations Fatigue Syncope Edema HypertensionXDiabetes Mellitus Rheumatic Fever SOB [place] Obesity HyperlipidemiaX Family History HD Additional History PATIENT INFORMATION HEIGHT: 65 WEIGHT:188 GENDER: Female B/P:122/84 2-D/M-MODE INTERPRETATION: 2-D MEASUREMENTS OBSERVED VALUES IN CMS Right Ventricular Dimension (RVDd) 1.6 Interventricular Septum (Thickness)(IVsd) 1.0 Left Ventricular Internal Dimensions(LVIDd) 4.9 Left Ventricular Posterior Wall (Thickness)(LVPWd) 1.2 Aortic Root 2.6 Aortic Cusp Separation 1.3 Left Atrial Dimensions (LAD) 3.7 2D 1. Left atrium is mildly enlarged, left ventricle is normal size, mild concentric left ventricular hypertrophy, visually estimated ejection fraction 55% with no regional wall motion abnormality. 2. The right atrium and right ventricle are normal size and contractility. 3. The aortic valve is thickened and calcified leaflet continue to display mobility. 4. The mitral valve has mitral calcification, there is no mitral stenosis, tricuspid valve leaflets are minimally thickened. 5. The pulmonic valve is poorly present. 6. No significant pericardial effusion noted. DOPPLER INTERROGATION: Doppler interrogation of the aortic, mitral and tricuspid valvular presence of mild mitral and tricuspid regurgitation, calculated right ventricular systolic pressure 36 mmHg, diastolic parameters are inconclusive. Inferior vena cava is not well visualized. CONCLUSION: 1. Mildly enlarged left atrium, normal left ventricular size, mild concentric left ventricular hypertrophy, visually estimated ejection fraction 55% with no regional wall motion abnormality, diastolic parameters are inconclusive. 2. Thickened and calcified aortic valve without significant aortic stenosis aortic insufficiency. 3. Mild mitral and tricuspid regurgitation, calculated right ventricular systolic pressure 36 mmHg, inferior vena cava is not well visualized 4. No significant pericardial effusion noted.
--- NOTE | 2018-06-11 08:32 | CI_ITS ---
Cerebrovascular Exam Indications: 780.4 Dizziness and giddiness. IMPRESSIONS 1. The bilateral vertebral arteries are patent with normal antegrade flow. 2. Study suggests 20-49% stenosis involving the right internal carotid artery(upper limits of scale on right)and the left internal carotid artery. No change from the study of 24-Jul-2015. History: Risk factors: Hypertension. Carotid duplex study. Complete study and Doppler flow study including spectral analysis, color and pena scale imaging. Location: Vascular laboratory. Patient status: Outpatient. Tables: Arterial flow: + +--------+--------+ Location V sys V ed + +--------+--------+ Right CCA - proximal 77cm/s 18.9cm/s + +--------+--------+ Right CCA - distal 79.4cm/s 25.9cm/s + +--------+--------+ Right ECA 85.6cm/s -------- + +--------+--------+ Right ICA - proximal 104cm/s 34.6cm/s + +--------+--------+ Right ICA - mid 95.1cm/s 29.1cm/s + +--------+--------+ Right ICA - distal 62.9cm/s 21.2cm/s + +--------+--------+ Right vertebral 40.9cm/s -------- + +--------+--------+ Left CCA - proximal 118cm/s 25.9cm/s + +--------+--------+ Left CCA - distal 80.9cm/s 22.8cm/s + +--------+--------+ Left ECA 81.7cm/s -------- + +--------+--------+ Left ICA - proximal 93.5cm/s 23.6cm/s + +--------+--------+ Left ICA - mid 90.6cm/s 35.1cm/s + +--------+--------+ Left ICA - distal 95.7cm/s 33.8cm/s + +--------+--------+ Left vertebral 57.4cm/s -------- + +--------+--------+ Velocity ratios: + + + + + + Right, V sys Right, V ed Left, V sys Left, V ed + + + + + + Max ICA/dist CCA 1.31 1.34 1.18 1.54 + + + + + + (Report amended ) Electronically signed by: Mauro Clarke [id number]
== END ==
PROVIDERS: PCP Internal Medicine Adolescent Medicine; Visit Provider Nurse Practitioner Family
DX: R00.2 Palpitations (principal); R42 Dizziness and giddiness
CPT/HCPCS: 93306; 93880

== ENCOUNTER → 2018-08-21 10:33 | Outpatient (CLI) | payer MEDICARE, SELFPAY ==
--- NOTE | 2018-08-21 10:36 | MM_ITS ---
MM Dig screening mamm BI w/CAD ORDERING PHYSICIAN : Sloane Sweeney APRN PATIENT AGE: 78 years GENDER: Female COMPARISON: Bilateral visual mammogram comparisons: July 2017, May 2015, 2014, 2013 INDICATION: ITS.Routine screening mammogram. No hormones. No new complaints laboratory family history. TECHNIQUE: Standard CC and MLO images were obtained. R2 CAD reviewed. FINDINGS: Low-density breast. Residual fibroglandular elements the medial retroareolar region with, otherwise diffuse fatty changes . Stable bilateral mammogram with no new findings of significant concern. No dominant or suspicious mass or suspicious calcifications. Bilateral follow-up in one year recommended RIGHT BREAST:No significant new findings. Small Stable benign calcifications lateral right breast LEFT BREAST:. No new findings. Bilateral follow-up one year IMPRESSION: Stable negative bilateral mammogram. Bilateral follow-up one year recommended BI-RADS Category: 1 Negative RECOMMENDED FOLLOW-UP: 1YR 1 YEAR FOLLOW-UP (A letter has been sent to the patient regarding results of the study.)
== END ==
PROVIDERS: PCP Nurse Practitioner Family; Visit Provider Nurse Practitioner Family
DX: Z12.31 Encounter for screening mammogram for malignant neoplasm of breast (principal)
CPT/HCPCS: 77067

== ENCOUNTER → 2019-01-17 16:16 | Outpatient (CLI) | payer MEDICARE, SELFPAY ==
[2019-01-17 16:31] LABS: Basophils # 0.1 K/mm3 (0-0.2); Basophils % 0.5 % (0.1-2.0); Eosinophils # 0.2 K/mm3 (0.0-0.4); Eosinophils % 2.1 % (0.1-12.0); Hematocrit 40.8 % (37.0-47.0); Hemoglobin 13.1 g/dL (12.2-16.2); Lymphocytes # 2.7 K/mm3 (0.7-4.5); Lymphocytes % 31.4 % (10-50); Mean Corpuscular HGB Conc 32.2 g/dL (31.8-35.4); Mean Corpuscular Hemoglobin 32.7 pg (27.0-31.2); Mean Corpuscular Volume 101.6 fl (81-99); Mean Platelet Volume 8.5 fl (7.4-10.4); Monocytes # 0.5 K/mm3 (0.1-1.0); Neutrophils # 5.1 K/mm3 (1.8-7.8); Platelet Count 247 K/mm3 (142-424); Red Blood Count 4.01 M/mm3 (4.20-5.40); Red Cell Distribution Width 12.3 % (11.5-17.5); White Blood Count 8.5 K/mm3 (4.8-10.8)
[2019-01-17 16:48] LABS: Anion Gap 10.8 mEq/L (5-15); Blood Urea Nitrogen 38 mg/dL (7-18); Calcium 9.5 mg/dL (8.5-10.1); Carbon Dioxide 28 mmol/L (21.0-32.0); Chloride 104 mmol/L (98-107); Creatinine,Serum 1.04 mg/dL (0.55-1.02); Estimated Glomerular Filt Rate 52 ml/min (>60); GFR (African American) 62 ML/MIN (>60); Glucose 94 mg/dL (74-106); Potassium 4.8 mmoL/L (3.5-5.1); Sodium 138 mmol/L (136-145); Troponin I < 0.02 ng/ml (0.00-0.06)
== END ==
PROVIDERS: Visit Provider Nurse Practitioner Family
DX: R07.9 Chest pain, unspecified (principal)
CPT/HCPCS: 36415; 80048; 84484; 85025

== ENCOUNTER → 2019-04-08 11:07 | Outpatient (CLI) | payer MEDICARE, SELFPAY ==
[2019-04-08 11:59] LABS: Basophils % 0.7 % (0.1-2.0); Eosinophils # 0.2 K/mm3 (0.0-0.4); Eosinophils % 3.7 % (0.1-12.0); Hematocrit 37.8 % (37.0-47.0); Hemoglobin 12.1 g/dL (12.2-16.2); Lymphocytes # 1.9 K/mm3 (0.7-4.5); Lymphocytes % 35.5 % (10-50); Mean Corpuscular HGB Conc 32.1 g/dL (31.8-35.4); Mean Corpuscular Hemoglobin 32.1 pg (27.0-31.2); Mean Corpuscular Volume 100.1 fl (81-99); Mean Platelet Volume 8.3 fl (7.4-10.4); Monocytes # 0.3 K/mm3 (0.1-1.0); Monocytes % 5.2 % (1.7-9.3); Neutrophils # 2.9 K/mm3 (1.8-7.8); Neutrophils % 54.9 % (37.0-80.0); Platelet Count 220 K/mm3 (142-424); Red Blood Count 3.78 M/mm3 (4.20-5.40); Red Cell Distribution Width 12.2 % (11.5-17.5); White Blood Count 5.2 K/mm3 (4.8-10.8)
[2019-04-08 12:36] LABS: Alanine Aminotransferase 22 U/L (12-78); Albumin Level 3.8 gm/dL (3.4-5.0); Albumin/Globulin Ratio 1.2 (1.1-1.8); Alkaline Phosphatase 46 U/L (46-116); Anion Gap 13.4 mEq/L (5-15); Aspartate Amino Transferase 17 U/L (15-37); Bilirubin,Total 0.3 mg/dL (0.2-1.0); Blood Urea Nitrogen 42 mg/dL (7-18); Calcium 9.2 mg/dL (8.5-10.1); Carbon Dioxide 27 mmol/L (21.0-32.0); Chloride 106 mmol/L (98-107); Chol/HDL Ratio 2.4 (1-3.5); Cholesterol 151 mg/dL (140-200); Creatinine,Serum 1.16 mg/dL (0.55-1.02); Estimated Glomerular Filt Rate 45 ml/min (>60); GFR (African American) 55 ML/MIN (>60); Globulin 3.2 gm/dl (1.3-3.2); Glucose 87 mg/dL (74-106); HDL Cholesterol 64 mg/dL (29-89); LDL Cholesterol 64 mg/dL (0-130); Potassium 5.4 mmoL/L (3.5-5.1); Sodium 141 mmol/L (136-145); Triglycerides 114 mg/dL (30-200); VLDL Cholesterol 23 mg/dL (0-40)
[2019-04-10 11:58] LABS: Vitamin D 25 Hydroxy 28.5 ng/mL (30.0-100.0)
== END ==
PROVIDERS: Visit Provider Nurse Practitioner Family
DX: I10 Essential (primary) hypertension (principal); E78.5 Hyperlipidemia, unspecified; D50.9 Iron deficiency anemia, unspecified; M85.80 Other specified disorders of bone density and structure, unspecified site
CPT/HCPCS: 36415; 80053; 80061; 82652; 85025

== ENCOUNTER → 2019-04-15 08:49 | Outpatient (CLI) | payer MEDICARE, SELFPAY ==
--- NOTE | 2019-04-15 09:02 | XR_ITS ---
PROCEDURE: XR DEXA AXIAL SKELETON CLINICAL HISTORY: OSTEOPENIA COMPARISON: No exams were available for comparison FINDINGS: Radius 1/3 is 0.535 grams/centimeters sq with T-score of -2.7. Right femoral neck density is 0.759 grams/centimeters sq with a T-score of -0.8. L-spine density from L1-L4 is 1.343 grams/centimeters sq with a T-score of 2.7. IMPRESSION: Osteoporosis with high fracture risk. Treatment advised. Suggest follow-up exam in 1 year Dictated by: Mauro Clarke MD 04/15/2019 11:27 Electronically signed by Mauro Clarke MD in [place] 04/15/2019 11:27
== END ==
PROVIDERS: PCP Nurse Practitioner Family; Visit Provider Nurse Practitioner Family
DX: Z13.820 Encounter for screening for osteoporosis (principal); M85.89 Other specified disorders of bone density and structure, multiple sites
CPT/HCPCS: 77080

== ENCOUNTER → 2019-08-22 10:52 | Outpatient (CLI) | payer MEDICARE, SELFPAY ==
--- NOTE | 2019-08-22 10:55 | MM_ITS ---
PROCEDURE: MM DIG SCREENING MAMM BI W/CAD Digital Breast Tomosynthesis Included CLINICAL INDICATION: SCREENING There is no personal or family history of breast cancer. COMPARISON: [facility] DIG MAMM-SCREEN MEGHA W/CAD from 06/01/2016 [facility] MM Dig screening mamm BI w/CAD from 08/01/2017 DIG MAMM-SCREEN MEGHA from 08/21/2018 TECHNIQUE: Standard CC and MLO images and 3D Tomosynthesis was obtained. R2 CAD reviewed. FINDINGS: Mild scattered diffuse fibroglandular densities are seen throughout both breasts on a background of fatty breast parenchyma. There are few benign-appearing microcalcifications in each breast. There is a mole marker right breast.. IMPRESSION: Fibrofatty parenchyma with no suspicious lesions seen BI-RAD Category: 2 Benign Finding(s) FOLLOW-UP: 1YR 1 Year Follow-up (A letter has been sent to the patient regarding results of the study.) Dictated by: Dr. Kaushik Madden MD 08/23/2019 10:[address] Kaushik Madden MD in [place] 08/23/2019 10:53
== END ==
PROVIDERS: PCP Nurse Practitioner Family; Visit Provider Nurse Practitioner Family
DX: Z12.31 Encounter for screening mammogram for malignant neoplasm of breast (principal)
CPT/HCPCS: 77063; 77067

== ENCOUNTER → 2019-10-08 10:01 | Outpatient (CLI) | payer MEDICARE, SELFPAY ==
[2019-10-08 10:28] LABS: Basophils % 0.4 % (0.1-2.0); Eosinophils # 0.2 K/mm3 (0.0-0.4); Eosinophils % 2.8 % (0.1-12.0); Hematocrit 37.7 % (37.0-47.0); Hemoglobin 12.7 g/dL (12.2-16.2); Lymphocytes # 1.6 K/mm3 (0.7-4.5); Lymphocytes % 26.2 % (10-50); Mean Corpuscular HGB Conc 33.6 g/dL (31.8-35.4); Mean Corpuscular Hemoglobin 34.4 pg (27.0-31.2); Mean Corpuscular Volume 102.3 fl (81-99); Mean Platelet Volume 8.9 fl (7.4-10.4); Monocytes # 0.3 K/mm3 (0.1-1.0); Monocytes % 5.1 % (1.7-9.3); Neutrophils % 65.4 % (37.0-80.0); Platelet Count 201 K/mm3 (142-424); Red Blood Count 3.69 M/mm3 (4.20-5.40); Red Cell Distribution Width 12.4 % (11.5-17.5); White Blood Count 6.2 K/mm3 (4.8-10.8)
[2019-10-08 10:55] LABS: Alanine Aminotransferase 17 U/L (12-78); Albumin Level 4.4 g/dl (3.5-5.0); Albumin/Globulin Ratio 1.4 (1.1-1.8); Alkaline Phosphatase 57 U/L (38-126); Anion Gap 15.1 mEq/L (5-15); Aspartate Amino Transferase 30 U/L (14-36); Bilirubin,Total 0.4 mg/dl (0.2-1.3); Blood Urea Nitrogen 49 mg/dl (7-17); Carbon Dioxide 27 mmol/L (22.0-30.0); Chloride 106 mmol/L (98-107); Chol/HDL Ratio 2.3 (1-3.5); Cholesterol 154 mg/dl (140-200); Estimated Glomerular Filt Rate 44 ml/min (>60); GFR (African American) 53 ML/MIN (>60); Globulin 3.2 g/dL (1.3-3.2); Glucose 94 mg/dl (74-100); HDL Cholesterol 66 mg/dl (40-60); Sodium 142 mmol/L (136-145); Total Protein,Serum 7.6 g/dl (6.3-8.2); Triglycerides 115 mg/dl (30-150); VLDL Cholesterol 23 mg/dL (0-40)
[2019-10-08 11:11] LABS: 25-OH Vitamin D, Total 46.1 ng/mL (30-100)
[2019-10-08 11:20] LABS: Potassium 6.1 mmoL/L (3.5-5.1)
[2019-10-08 20:47] LABS: Ferritin 52.3 ng/ml (11.1-264)
== END ==
PROVIDERS: Visit Provider Nurse Practitioner Family
DX: E78.5 Hyperlipidemia, unspecified (principal); I10 Essential (primary) hypertension; D50.9 Iron deficiency anemia, unspecified; M85.80 Other specified disorders of bone density and structure, unspecified site
CPT/HCPCS: 36415; 80053; 80061; 82306; 82728; 85025

== ENCOUNTER → 2019-10-11 07:33 | Outpatient (CLI) | payer MEDICARE, SELFPAY ==
[2019-10-11 10:07] LABS: Chloride 101 mmol/L (98-107); Potassium 5.4 mmoL/L (3.5-5.1); Sodium 138 mmol/L (136-145)
[2019-10-11 10:10] LABS: Blood Urea Nitrogen 35 mg/dl (7-17); Estimated Glomerular Filt Rate 44 ml/min (>60); GFR (African American) 53 ML/MIN (>60)
[2019-10-11 10:11] LABS: Anion Gap 17.4 mEq/L (5-15); Calcium 10.3 mg/dl (8.4-10.2); Carbon Dioxide 25 mmol/L (22.0-30.0); Glucose 92 mg/dl (74-100)
== END ==
PROVIDERS: Visit Provider Nurse Practitioner Family
DX: E87.5 Hyperkalemia (principal)
CPT/HCPCS: 36415; 80048

== ENCOUNTER → 2019-10-28 15:26 | Outpatient (CLI) | payer MEDICARE, SELFPAY ==
[2019-10-28 16:56] LABS: Anion Gap 14.9 mEq/L (5-15); Blood Urea Nitrogen 22 mg/dl (7-17); Calcium 10.1 mg/dl (8.4-10.2); Carbon Dioxide 27 mmol/L (22.0-30.0); Chloride 102 mmol/L (98-107); Estimated Glomerular Filt Rate 54 ml/min (>60); GFR (African American) 65 ML/MIN (>60); Glucose 83 mg/dl (74-100); Potassium 4.9 mmoL/L (3.5-5.1); Sodium 139 mmol/L (136-145)
[2019-10-28 17:09] LABS: Intact Parathyroid Hormone 22.5 pg/mL (7.5-53.5)
[2019-10-28 17:27] LABS: Thyroid Stimulating Hormone 0.54 uIU/mL (0.465-4.68)
== END ==
PROVIDERS: Visit Provider Nurse Practitioner Family
DX: N18.3 Chronic kidney disease, stage 3 (moderate) (principal); E87.5 Hyperkalemia; Z79.899 Other long term (current) drug therapy
CPT/HCPCS: 36415; 80048; 83970; 84443

== ENCOUNTER → 2019-11-13 13:36 | Outpatient (POV) | payer MEDICARE, SELFPAY | DX: Z00.00 Encounter for general adult medical examination without abnormal findings (principal) ==

== ENCOUNTER → 2020-05-02 07:18 | Outpatient (CLI) | payer MEDICARE, SELFPAY ==
[2020-05-02 09:12] LABS: Alanine Aminotransferase 21 U/L (12-78); Albumin Level 4.8 g/dl (3.5-5.0); Albumin/Globulin Ratio 1.3 (1.1-1.8); Alkaline Phosphatase 65 U/L (38-126); Anion Gap 15.3 mEq/L (5-15); Aspartate Amino Transferase 36 U/L (14-36); Bilirubin,Total 0.6 mg/dl (0.2-1.3); Blood Urea Nitrogen 26 mg/dl (7-17); Calcium 10.5 mg/dl (8.4-10.2); Carbon Dioxide 29 mmol/L (22.0-30.0); Chloride 102 mmol/L (98-107); Chol/HDL Ratio 2.2 (1-3.5); Cholesterol 170 mg/dl (140-200); Estimated Glomerular Filt Rate 54 ml/min (>60); GFR (African American) 65 ML/MIN (>60); Globulin 3.6 g/dL (1.3-3.2); Glucose 91 mg/dl (74-100); HDL Cholesterol 78 mg/dl (40-60); Potassium 5.3 mmoL/L (3.5-5.1); Sodium 141 mmol/L (136-145); Total Protein,Serum 8.4 g/dl (6.3-8.2); Triglycerides 112 mg/dl (30-150); VLDL Cholesterol 22 mg/dL (0-40)
[2020-05-02 09:23] LABS: Direct LDL Cholesterol 61.57 mg/dL (100-129)
[2020-05-02 09:29] LABS: 25-OH Vitamin D, Total 48.1 ng/mL (30-100)
== END ==
PROVIDERS: Visit Provider Nurse Practitioner Family
DX: I10 Essential (primary) hypertension (principal); E78.5 Hyperlipidemia, unspecified; M81.0 Age-related osteoporosis without current pathological fracture
CPT/HCPCS: 36415; 80053; 80061; 82306

== ENCOUNTER → 2020-07-30 11:45 | Outpatient (CLI) | payer MEDICARE, SELFPAY ==
[2020-07-30 12:04] LABS: Basophils # 0.1 K/mm3 (0-0.2); Basophils % 0.9 % (0.1-2.0); Eosinophils # 0.2 K/mm3 (0.0-0.4); Eosinophils % 3.1 % (0.1-12.0); Hematocrit 38.8 % (37.0-47.0); Hemoglobin 12.9 g/dL (12.2-16.2); Lymphocytes # 2.2 K/mm3 (0.7-4.5); Lymphocytes % 36.4 % (10-50); Mean Corpuscular HGB Conc 33.2 g/dL (31.8-35.4); Mean Corpuscular Hemoglobin 32.2 pg (27.0-31.2); Mean Corpuscular Volume 97.1 fl (81-99); Mean Platelet Volume 8.4 fl (7.4-10.4); Monocytes # 0.4 K/mm3 (0.1-1.0); Monocytes % 6.9 % (1.7-9.3); Neutrophils # 3.2 K/mm3 (1.8-7.8); Neutrophils % 52.8 % (37.0-80.0); Platelet Count 214 K/mm3 (142-424); Red Cell Distribution Width 13.4 % (11.5-17.5)
[2020-07-30 12:46] LABS: Chloride 106 mmol/L (98-107); Potassium 5.6 mmoL/L (3.5-5.1); Sodium 141 mmol/L (136-145)
[2020-07-30 12:48] LABS: Blood Urea Nitrogen 31 mg/dl (7-17); Estimated Glomerular Filt Rate 61 ml/min (>60); GFR (African American) 73 ML/MIN (>60)
[2020-07-30 12:49] LABS: Alanine Aminotransferase 23 U/L (12-78); Albumin Level 4.8 g/dl (3.5-5.0); Albumin/Globulin Ratio 1.5 (1.1-1.8); Alkaline Phosphatase 72 U/L (38-126); Anion Gap 12.6 mEq/L (5-15); Aspartate Amino Transferase 39 U/L (14-36); Bilirubin,Total 0.7 mg/dl (0.2-1.3); Calcium 9.6 mg/dl (8.4-10.2); Carbon Dioxide 28 mmol/L (22.0-30.0); Chol/HDL Ratio 2.4 (1-3.5); Cholesterol 153 mg/dl (140-200); Globulin 3.1 g/dL (1.3-3.2); Glucose 98 mg/dl (74-100); HDL Cholesterol 65 mg/dl (40-60); Total Protein,Serum 7.9 g/dl (6.3-8.2); Triglycerides 129 mg/dl (30-150); VLDL Cholesterol 26 mg/dL (0-40)
[2020-07-30 13:00] LABS: Direct LDL Cholesterol 56.58 mg/dL (100-129)
[2020-07-30 13:35] LABS: Thyroid Stimulating Hormone 1.03 uIU/mL (0.465-4.68)
== END ==
PROVIDERS: Visit Provider Nurse Practitioner Family
DX: I10 Essential (primary) hypertension (principal); E78.5 Hyperlipidemia, unspecified; R63.4 Abnormal weight loss
CPT/HCPCS: 36415; 80053; 80061; 84443; 85025

== ENCOUNTER → 2020-08-24 09:08 | Outpatient (CLI) | payer MEDICARE, SELFPAY ==
--- NOTE | 2020-08-24 09:11 | MM_ITS ---
PROCEDURE: MM DIG SCREENING MAMM BI W/CAD Digital Breast Tomosynthesis Included CLINICAL INDICATION: SCREENING there is no personal or family history of breast cancer. COMPARISON: MG [facility] MM Dig screening mamm BI w/CAD from 08/01/2017 MG DIG MAMM-SCREEN MEGHA from 08/21/2018 MG MM DIG SCREENING MAMM BI W/CAD from 08/22/2019 TECHNIQUE: Standard CC and MLO images and 3D Tomosynthesis was obtained. R2 CAD reviewed. FINDINGS: Mild scattered diffuse fibroglandular densities are seen throughout both breasts. There are couple of benign-appearing microcalcifications in each breast. There are no CAD markings. Lesion in either breast and no suspicious microcalcifications. IMPRESSION: Fibrofatty parenchyma with no suspicious lesions seen BI-RAD Category: 2 Benign Finding(s) FOLLOW-UP: 1YR 1 Year Follow-up (A letter has been sent to the patient regarding results of the study.) Dictated by: Dr. Kaushik Madden MD 08/26/2020 07:57 Dr. Kaushik Madden MD in [place] 08/26/2020 07:57
--- NOTE | 2020-08-24 09:11 | XR_ITS ---
PROCEDURE: XR DEXA AXIAL SKELETON CLINICAL HISTORY: OSTEOPOROSIS,POST MENOPAUSAL COMPARISON: CR,DX BONE3 BONE DENSITOMETRY(HIP:LT SPINE from 08/02/2016 FINDINGS: The right hip BMD is 0.736 with a T-score of -1.0. The left forearm BMD is 0.514 with a T-score of -3.0. The lumbar spine BMD is 1.321 with a T-score of 2.5. Previously the lowest density was -1.7. IMPRESSION: This patient is considered osteoporotic according to the World Health Organization criteria. Fracture risk is high. Treatment is advised. Based on these results a follow-up exam is recommended in 1 year. Dictated by: Mauro Clarke MD 08/25/2020 08:08 Mauro Clarke MD in [place] 08/25/2020 08:08
== END ==
PROVIDERS: PCP Nurse Practitioner Family; Visit Provider Nurse Practitioner Family
DX: Z12.31 Encounter for screening mammogram for malignant neoplasm of breast (principal); M81.0 Age-related osteoporosis without current pathological fracture
CPT/HCPCS: 77063; 77067; 77080

== ENCOUNTER → 2020-09-28 13:20 | Outpatient (CLI) | payer MEDICARE, SELFPAY ==
[2020-09-28 13:26] LABS: Microscopic, Urine URINE MICROSCOPIC (MICROSCOPIC)
[2020-09-28 14:02] LABS: Appearance,Urine CLEAR (Clear); Bilirubin,Urine Negative (Negative); Blood, Urine Negative (Negative); Color,Urine YELLOW (Yellow); Glucose,Urine (UA) Negative (Negative); Ketones,Urine Negative (Negative); Leukocyte Esterase,Urine TRACE (Negative); Nitrate,Urine Negative (Negative); PH,Urine 5.5 (5.0-8.5); Protein,Urine Negative (Negative); Urobilinogen,Urine 0.2 EU/dl (0.2)
[2020-09-28 14:08] LABS: Basophils % 0.5 % (0.1-2.0); Eosinophils # 0.2 K/mm3 (0.0-0.4); Eosinophils % 2.8 % (0.1-12.0); Hemoglobin 12.4 g/dL (12.2-16.2); Lymphocytes # 2.4 K/mm3 (0.7-4.5); Lymphocytes % 35.1 % (10-50); Mean Corpuscular HGB Conc 32.6 g/dL (31.8-35.4); Mean Corpuscular Hemoglobin 31.7 pg (27.0-31.2); Mean Corpuscular Volume 97.2 fl (81-99); Mean Platelet Volume 8.1 fl (7.4-10.4); Monocytes # 0.4 K/mm3 (0.1-1.0); Monocytes % 5.5 % (1.7-9.3); Neutrophils # 3.8 K/mm3 (1.8-7.8); Neutrophils % 56.2 % (37.0-80.0); Platelet Count 195 K/mm3 (142-424); Red Blood Count 3.91 M/mm3 (4.20-5.40); Red Cell Distribution Width 12.5 % (11.5-17.5); White Blood Count 6.8 K/mm3 (4.8-10.8)
[2020-09-28 14:15] LABS: Creatinine,Urine Random 48 mg/dL (Not Estab.)
[2020-09-28 15:03] LABS: Albumin Level 4.4 g/dl (3.5-5.0); Anion Gap 14.9 mEq/L (5-15); Blood Urea Nitrogen 27 mg/dl (7-17); Calcium 9.4 mg/dl (8.4-10.2); Carbon Dioxide 27 mmol/L (22.0-30.0); Chloride 104 mmol/L (98-107); Estimated Glomerular Filt Rate 61 ml/min (>60); GFR (African American) 73 ML/MIN (>60); Glucose 83 mg/dl (74-100); Phosphorous 4.4 mg/dl (2.5-4.5); Potassium 4.9 mmoL/L (3.5-5.1); Sodium 141 mmol/L (136-145)
[2020-09-28 15:15] LABS: Intact Parathyroid Hormone 14.8 pg/mL (7.5-53.5)
[2020-09-28 15:18] LABS: 25-OH Vitamin D, Total 38.6 ng/mL (30-100)
[2020-10-01 15:34] LABS: Osteocalcin 14.8 ng/mL (.)
[2020-10-02 12:23] LABS: Tandem-R Ostase 11.1 ug/L (.)
[2020-10-04 11:08] LABS: C-Telopeptide Serum 186 pg/mL (.)
== END ==
PROVIDERS: Visit Provider Internal Medicine Nephrology
DX: M81.0 Age-related osteoporosis without current pathological fracture (principal); E55.9 Vitamin D deficiency, unspecified
CPT/HCPCS: 36415; 80069; 81001; 82306; 82523; 82570; 83937; 83970; 84080; 84155; 85025

== ENCOUNTER → 2020-10-05 11:23 | Outpatient (POV) | payer MEDICARE, SELFPAY | PROVIDERS: Visit Provider Internal Medicine Nephrology | DX: Z00.00 Encounter for general adult medical examination without abnormal findings (principal) ==

== ENCOUNTER → 2020-11-26 13:08 | Outpatient (CLI) | payer MEDICARE, SELFPAY ==
[2020-11-26 14:22] LABS: Chloride 101 mmol/L (98-107); Potassium 4.9 mmoL/L (3.5-5.1); Sodium 140 mmol/L (136-145)
[2020-11-26 14:25] LABS: Alanine Aminotransferase 21 U/L (12-78); Albumin Level 4.6 g/dl (3.5-5.0); Albumin/Globulin Ratio 1.5 (1.1-1.8); Alkaline Phosphatase 63 U/L (38-126); Anion Gap 16.9 mEq/L (5-15); Aspartate Amino Transferase 38 U/L (14-36); Bilirubin,Total 0.4 mg/dl (0.2-1.3); Blood Urea Nitrogen 31 mg/dl (7-17); Carbon Dioxide 27 mmol/L (22.0-30.0); Estimated Glomerular Filt Rate 61 ml/min (>60); GFR (African American) 73 ML/MIN (>60); Total Protein,Serum 7.6 g/dl (6.3-8.2)
[2020-11-26 14:26] LABS: Calcium 9.8 mg/dl (8.4-10.2); Glucose 76 mg/dl (74-100)
== END ==
PROVIDERS: Visit Provider Nurse Practitioner Family
DX: I10 Essential (primary) hypertension (principal); E78.5 Hyperlipidemia, unspecified; N18.31 Chronic kidney disease, stage 3a
CPT/HCPCS: 36415; 80053

== ENCOUNTER → 2021-08-27 10:17 | Outpatient (CLI) | payer MEDICARE, SELFPAY ==
--- NOTE | 2021-08-27 10:22 | MM_ITS ---
PROCEDURE INFORMATION: Exam: MG Bilateral Screening 3D Mammography Exam date and time: 08/27/2021 10:45 AM Age: 81 years old Clinical indication: Screening examination TECHNIQUE: Imaging protocol: Bilateral Screening tomosynthesis and 2D mammography including computer-aided detection (CAD) when performed. COMPARISON: 1. MG MM DIG SCREENING MAMM BI W/CAD 08/24/2020 9:46 AM 2. MG MM DIG SCREENING MAMM BI W/CAD 08/22/2019 11:21 AM FINDINGS: MAMMOGRAPHY: Breast composition: There are scattered areas of fibroglandular density. Mass: None. Architectural distortion: None. Calcifications: No suspicious calcifications. Asymmetric density: None. Skin thickening: None. Axillary adenopathy: None. IMPRESSION: No mammographic evidence of malignancy. Annual screening is recommended unless otherwise clinically indicated. ASSESSMENT: BI-RADS Category 1: Negative
== END ==
PROVIDERS: PCP Nurse Practitioner Family; Visit Provider Nurse Practitioner Family
DX: Z12.31 Encounter for screening mammogram for malignant neoplasm of breast (principal)
CPT/HCPCS: 77063; 77067

== ENCOUNTER 2022-01-19 09:55 | Day surgery (SDC) | payer MEDICARE, SELFPAY ==
[2021-12-29 13:59] VITALS: BMI 27.8
[2022-01-19 10:21] VITALS: BP 163/74; PULSE 74; RESP 18; TEMP 37.2; O2SAT 99
--- NOTE | 2022-01-19 10:57 | P.PN_ITS ---
PFSH PFS Medical History Hx of adenomatous colonic polyps Hx of cardiac murmur Hx of carotid stenosis Hx of hyperkalemia Hx of hyperlipidemia Hx of osteoporosis Surgical History History of appendectomy History of knee replacement History of left hip replacement Hx of tubal ligation Family History Other Family history of cancer Family history of diabetes mellitus type I Family history of stroke Social History Smoking Status: Never smoker alcohol intake: never substance use type: denies use current occupational status: retired Travel in the last 8 weeks: None household members: none housing: house lives independently: Yes current occupation: STATE WORKER current occupational exposures/hazards: No caffeine: No do you feel safe at home: Yes victim of physical abuse: No victim of emotional abuse: No victim of sexual abuse: No would you like helpful sources: No [facility] Anesthesia Checklist Patient Identification Patient Identification: Verbal (Name & ) Structural Data Admitted From: Home Planned Operative Procedure/s: colonoscopy Consent for Planned Operative Procedure(s) Verified: Yes Airway Assessment C-Spine Mobility Assessed: Yes TMJ Mobility Assessed: Yes Dentition: Partials Neurological Assessment Level of Consciousness: Awake, Alert and Appropriate Anesthesia Plan Anesthesia Risk discussed: Yes Anesthesia Plan: Verified ASA Class: II Anesthesia Type: MAC
[2022-01-19 11:03] VITALS: O2SAT 99
--- NOTE | 2022-01-19 11:23 | HMH.SCOPE ---
Procedure: Date: 01/19/22 Patient Date of :: 1940 Procedure Performed:: Colonoscopy Indications:: History of polyps Performing Provider:: Monty Bass MD Referring Provider:: KATH Mcgee Sedation:: See RN records Procedure:: After placing the patient in the left lateral decubitus position, the colonoscopy was gently inserted into the rectum and under direct visualization advanced to the cecum which was identified by transillumination in the right lower quadrant, identification of the ileocecal valve, appendiceal orifice, and cecal strap. Color, texture, mucosa, and anatomy of the colon were carefully examined with the scope. Findings:: Anal canal: normal Rectum: internal hemorrhoids Sigmoid colon: diverticulosis Descending colon: There diminutive polyps. Removed with cold snare polypectomy Splenic flexure: normal Transverse colon: normal without polyps or inflammatory changes Hepatic flexure: normal Ascending colon: normal without polyps or inflammatory changes Cecum: normal Terminal ileum: not visualized Impression: Three diminutive polyps of descending colon Sigmoid diverticulosis Recommendations:: Await pathology results In view of age, no further surveillance colonoscopy can be recommended Complications:: none Estimated blood obtained (mL): 0
[2022-01-19 11:25] VITALS: BP 73/39; PULSE 58; RESP 16; TEMP 36.5; O2SAT 94
[2022-01-19 11:35] VITALS: BP 111/55; PULSE 57; RESP 17; O2SAT 100
[2022-01-19 11:45] VITALS: BP 103/55; PULSE 63; RESP 18; O2SAT 100
[2022-01-19 11:55] VITALS: BP 110/60; PULSE 62; RESP 18; O2SAT 99
== END 2022-01-19 12:00 | disposition home or self-care (01) ==
PROVIDERS: PCP Nurse Practitioner Family; Visit Provider Internal Medicine
PROC: 0DJD8ZZ Inspection of Lower Intestinal Tract, Via Natural or Artificial Opening Endoscopic (ICD-10-PCS; CPT 45378; principal; 2022-01-19 11:00)
DX: Z12.11 Encounter for screening for malignant neoplasm of colon (principal); D12.2 Benign neoplasm of ascending colon; D12.5 Benign neoplasm of sigmoid colon; Z79.899 Other long term (current) drug therapy
CPT/HCPCS: 45380; 88305

== ENCOUNTER → 2022-09-02 16:31 | Outpatient (CLI) | payer MEDICARE, SELFPAY ==
--- NOTE | 2022-09-02 16:35 | MM_ITS ---
PROCEDURE INFORMATION: Exam: MG Bilateral Screening 3D Mammography Exam date and time: 09/02/2022 4:24 PM Age: 82 years old Clinical indication: Screening examination TECHNIQUE: Imaging protocol: Bilateral Screening tomosynthesis and 2D mammography including computer-aided detection (CAD) when performed. COMPARISON: 1. MG MM DIG SCREENING MAMM BI W/CAD 08/27/2021 10:45 AM 2. MG MM DIG SCREENING MAMM BI W/CAD 08/24/2020 9:46 AM FINDINGS: MAMMOGRAPHY: Breast composition: There are scattered areas of fibroglandular density. Mass: None. Architectural distortion: None. Calcifications: No suspicious calcifications. Asymmetric density: None. Skin thickening: None. Axillary adenopathy: None. IMPRESSION: No mammographic evidence of malignancy. Annual screening is recommended unless otherwise clinically indicated. ASSESSMENT: BI-RADS Category 1: Negative
== END ==
PROVIDERS: PCP Nurse Practitioner Family; Visit Provider Nurse Practitioner Family
DX: Z12.31 Encounter for screening mammogram for malignant neoplasm of breast (principal)
CPT/HCPCS: 77063; 77067

== ENCOUNTER → 2022-11-22 12:58 | Outpatient (POV) | payer MEDICARE, SELFPAY | PROVIDERS: Visit Provider Dermatology | DX: Z00.00 Encounter for general adult medical examination without abnormal findings (principal) ==

== ENCOUNTER 2022-12-28 18:46 | Emergency (ER) | payer MEDICARE, SELFPAY ==
--- NOTE | 2022-12-28 18:45 | ECG_ITS ---
APPROVED REPORT Exam: Resting ECG HR:55 bpm ECG Measurements Heart Rate 55 AXES WA 163 P 73 QRSd 102 QRS 14 QT 412 T 56 QTc 401 Conclusion SINUS BRADYCARDIA BORDERLINE ECG UNCONFIRMED REPORT Electronically signed by : Sherman Martinez MD 12/29/2022 21:27:22
[2022-12-28 18:46] VITALS: BP 144/63; PULSE 67; RESP 17; TEMP 37; O2SAT 99; BMI 29.2
--- NOTE | 2022-12-28 18:53 | XR_ITS ---
PROCEDURE INFORMATION: Exam: XR Chest Exam date and time: 12/28/2022 7:25 PM Age: 82 years old Clinical indication: Other: Syncopal episode; Additional info: Syncopal episodes TECHNIQUE: Imaging protocol: Radiologic exam of the chest. Views: 1 view. COMPARISON: CR CXR2V XR chest 2V 04/20/2017 1:18 PM FINDINGS: Lungs: Pleuroparenchymal scarring of the lung bases with subsegmental atelectasis is present without consolidations or pleural effusions that project above the diaphragm. Pleural spaces: See Lungs finding. Heart/Mediastinum: Unremarkable. No cardiomegaly. Bones/joints: Unremarkable. IMPRESSION: Pleuroparenchymal scarring of the lung bases with subsegmental atelectasis is present without consolidations or pleural effusions that project above the diaphragm.
[2022-12-28 19:04] LABS: Basophils % 0.3 % (0.1-2.0); Eosinophils # 0.1 K/mm3 (0.0-0.4); Hematocrit 40.3 % (37.0-47.0); Hemoglobin 13.3 g/dL (12.2-16.2); Lymphocytes # 1.8 K/mm3 (0.7-4.5); Lymphocytes % 24.9 % (10-50); Mean Corpuscular HGB Conc 33.1 g/dL (31.8-35.4); Mean Corpuscular Hemoglobin 33.5 pg (27.0-31.2); Mean Corpuscular Volume 101.4 fl (81-99); Mean Platelet Volume 8.3 fl (7.4-10.4); Monocytes # 0.5 K/mm3 (0.1-1.0); Monocytes % 6.9 % (1.7-9.3); Neutrophils # 4.8 K/mm3 (1.8-7.8); Platelet Count 207 K/mm3 (142-424); Red Blood Count 3.98 M/mm3 (4.20-5.40); Red Cell Distribution Width 13.1 % (11.5-17.5); White Blood Count 7.3 K/mm3 (4.8-10.8)
[2022-12-28 19:06] LABS: Chloride 106 mmol/L (98-107)
[2022-12-28 19:07] LABS: Potassium 4.1 mmoL/L (3.5-5.1); Sodium 140 mmol/L (136-145)
[2022-12-28 19:09] LABS: Alanine Aminotransferase 26 U/L (12-78); Albumin Level 4.5 g/dl (3.5-5.0); Albumin/Globulin Ratio 1.3 (1.1-1.8); Alkaline Phosphatase 60 U/L (38-126); Anion Gap 12.1 mEq/L (5-15); Aspartate Amino Transferase 42 U/L (14-36); Bilirubin,Total 0.2 mg/dl (0.2-1.3); Blood Urea Nitrogen 25 mg/dl (7-17); Carbon Dioxide 26 mmol/L (22.0-30.0); Estimated Glomerular Filt Rate 69 ml/min (>60); GFR (African American) 84 ML/MIN (>60); Globulin 3.6 g/dL (1.3-3.2); Total Protein,Serum 8.1 g/dl (6.3-8.2)
[2022-12-28 19:10] LABS: Glucose 110 mg/dl (74-100)
--- NOTE | 2022-12-28 19:14 | PC.NURSE ---
Respiratory notified of VBG order and blood in lab
--- NOTE | 2022-12-28 19:16 | HMH.EDGENADL ---
Discharge Plan Disposition Patient Disposition: Home, Self-Care Chief Complaint: Syncope Prescriptions Prescriptions: No Action alendronate 70 MG tablet 70 mg PO WEEKLY aspirin [Adult Low Dose Aspirin] 81 MG tablet,delayed release (DR/EC) 81 mg PO DAILY acetaminophen [Acetaminophen Extra Strength] 500 MG tablet 500 mg PO BID vitamin B complex [B Complex-Vitamin B12] 1 EACH tablet 1 tab PO DAILY ocbjcsxdqko-icatxhakw-wwa C-Mn 1 EACH tablet 1,200 - 1,500 mg PO DAILY calcium carbonate-vitamin D3 [Caltrate with Vitamin D3] 1 EACH tablet 1 tab PO DAILY calcium polycarbophil [FiberCon] 625 mg Tablet 1,250 mg PO DAILY ezetimibe 10 mg tablet 10 mg PO DAILY rosuvastatin 10 mg tablet 10 mg PO DAILY metoprolol succinate 100 mg tablet extended release 24 hr 100 mg PO DAILY Patient Comments: TAKE 1 TABLET BY MOUTH EVERY DAY Referrals Follow up/Referrals: Mathieu Hahn MD [Staff Physician] - See instructions Activity Restrictions/Add. Instructions Additional Instructions/Restrictions: Call your family doctor to establish care for this visit to the emergency department and schedule follow-up within 48 hours to ensure improvement. If you have any worsening of your condition or any other concerning signs or symptoms, return to the emergency department or your primary care doctor for further evaluation. Dr. Hahn's information has been listed here, he is a forestry extension specialist. Please call his office tomorrow to schedule appointment within the next few days for further evaluation. Clinical Impressions Clinical Impression: Syncope Instructions Patient Instructions: DI for Syncope in Adults (Fainting), DI for Syncope in Children (Fainting) Discharge ED Provider: Clinton Maloney General Adult HPI General Chief complaint: Syncope Stated complaint: syncope Time Seen by Provider: 12/28/22 18:53 Mode of Arrival: EMS Source of Information: Patient, EMS and Medical Record Limitations: No Limitations Description of Symptoms (Recalled from ER Triage Doc. by RN): Pt c/o an episode of syncope while sitting on the cough and talking with her daughter. She was out for approx 20 seconds per her daughter. Pt states right before this episode she became diaphoretic, weak, or episode of incontinence. Of note, she had her Flu vaccine approx 2 wk ago and Covid booster approx 1 wk ago. Denies any chest pain, SOA, or weakness at this time. History of Present Illness HPI narrative: 82-year-old female history of hypertension, hyperlipidemia, CAD presenting with syncopal episode. She was sitting on the couch just prior to arrival and felt as if she was going to vomit, got lightheaded, then had a bowel movement and passed out. No shaking after passing out. Was unconscious, per report, for less than a minute. No postictal period, brought to the ER for further evaluation. Patient without complaints on arrival. Related Data Home Medications Medication Instructions Recorded Confirmed alendronate 70 mg tablet 70 mg PO WEEKLY BONE DENSITY 04/20/17 12/29/21 aspirin 81 mg tablet,delayed 81 mg PO DAILY HEART HEALTH 04/20/17 12/29/21 release (Adult Low Dose Aspirin) acetaminophen 500 mg tablet 500 mg PO BID Pain 04/21/17 01/19/22 (Acetaminophen Extra Strength) calcium carbonate 600 mg-vitamin 1 tab PO DAILY VITAMIN 04/21/17 01/19/22 D3 20 mcg (800 unit) tablet (Caltrate with Vitamin D3) iygacbfthln-eumzqihzw-zvw C-Mn 750 1,200 - 1,500 mg PO DAILY JOINTS 04/21/17 01/19/22 mg-600 mg-55 mg-5 mg tablet vitamin B complex (B 1 tab PO DAILY VITAMIN 04/21/17 01/19/22 Complex-Vitamin B12 tablet) calcium polycarbophil 625 mg 1,250 mg PO DAILY bowels 12/29/21 01/19/22 tablet (FiberCon) ezetimibe 10 mg tablet 10 mg PO DAILY Cholesterol 12/29/21 01/19/22 rosuvastatin 10 mg tablet 10 mg PO DAILY cholestero;l 12/29/21 01/19/22 metoprolol succinate 100 mg 100 mg PO DAILY heart rate
[2022-12-28 19:20] LABS: NT Pro Brain Natriuretic Pep. 1190 pg/mL (0-450)
[2022-12-28 19:21] LABS: VBG Base Excess -2.8 mmol/L (-2.4-2.3); VBG HCO3 23.6 mmol/L (23-30); VBG Oxygen Saturation 89.7 % (50-70); VBG PCO2 49.2 mmol/L (35-51); VBG PO2 58.9 mmol/L (28-40); VBG Total CO2 25.1 mmol/L (23-27)
[2022-12-28 19:28] LABS: T4 (Thyroxine) 7.7 ug/dl (5.53-11.0)
[2022-12-28 19:30] VITALS: BP 121/61; PULSE 64; RESP 14; O2SAT 99
[2022-12-28 19:47] LABS: Troponin I < 0.01 ng/ml (0.00-0.034)
--- NOTE | 2022-12-28 19:52 | PC.NURSE ---
Pt sitting in bed, family at bedside, denies any complaints Up dated on waiting for labs, verbalized understanding
[2022-12-28 20:01] VITALS: BP 159/71; PULSE 72; RESP 12; O2SAT 98
[2022-12-28 20:30] VITALS: BP 148/64; PULSE 68; RESP 15; O2SAT 98
[2022-12-28 21:00] VITALS: BP 119/64; PULSE 70; RESP 13; O2SAT 99
[2022-12-28 21:33] LABS: Troponin I < 0.01 ng/ml (0.00-0.034)
[2022-12-28 22:03] LABS: Microscopic, Urine URINE MICROSCOPIC (MICROSCOPIC)
[2022-12-28 22:24] LABS: Appearance,Urine CLEAR (Clear); Bilirubin,Urine Negative (Negative); Blood, Urine TRACE-I (Negative); Color,Urine YELLOW (Yellow); Glucose,Urine (UA) Negative (Negative); Ketones,Urine Negative (Negative); Leukocyte Esterase,Urine TRACE (Negative); Nitrate,Urine Negative (Negative); Protein,Urine Negative (Negative); Urobilinogen,Urine 0.2 EU/dl (0.2)
[2022-12-28 22:33] LABS: Lactic Acid 1.1 mmol/L (0.7-2.1)
[2022-12-28 22:40] LABS: Squamous Epithelial Cell,Urine Occasional #/hpf (0-5)
[2022-12-28 22:57] VITALS: BP 122/89; PULSE 76; RESP 13; TEMP 36.6; O2SAT 98
== END 2022-12-28 23:00 | disposition home or self-care (01) ==
PROVIDERS: Emergency Provider Emergency Medicine; PCP Nurse Practitioner Family
DX: R55 Syncope and collapse (principal)
CPT/HCPCS: 71045; 80053; 81001; 82803; 83605; 83880; 84436; 84443; 84484; 85025; 93005; 96360; 96361; 99285

== ENCOUNTER → 2023-01-17 08:14 | Outpatient (POV) | payer MEDICARE, SELFPAY | PROVIDERS: PCP Nurse Practitioner Family; Visit Provider Dermatology | DX: Z00.00 Encounter for general adult medical examination without abnormal findings (principal) ==

== ENCOUNTER → 2023-01-20 06:35 | Outpatient (CLI) | payer MEDICARE, SELFPAY ==
--- NOTE | 2023-01-20 06:39 | NM_ITS ---
APPROVED REPORT Exam: Nuclear Stress Test Indication: HTN, HYPERLIPIDEMIA, FM HX, SYNCOPE, FATIGUE Patient Location: Outpatient Stress Tech: Margret Atwood [place] Tech:Ruth Perez TONO RT(R)(N) Ht: 5 ft 5 in Wt: 173 lbs Bra Size: 42B HR: 62 bpm BP: 138/66 mmHg BSA: 1.86 m2 TID: 1.22 BMI: 28.7 History: HTN, HYPERLIPIDEMIA, FM HX, SYNCOPE, FATIGUE PT COULD NOT LAY ON STOMACH FOR PRONE IMAGES Procedure: Patient received 0.4 mg of intravenous Lexiscan, resting heart rate 62 bpm, resting blood pressure 138/66 mmHg, with AdenosineLexiscan maximum heart rate achieved was 88 bpm which is % of the maximum predicted heart rate and blood pressure was 141/65 mmHg. With Lexiscan, patient denied any complaint of chest pain. Cardiac Stress and Resting SPECT Images: Cardiac Stress and Resting SPECT images were obtained using technetium 99m Myoview 31.7 mCi stress and 10.92 mCi at rest. Technically difficult study. Raw images demonstrate significant soft tissue overlap with the cardiac borders. Also, the patient could not lie on her abdomen. Therefore, prone stress imaging could not be performed. Findings may affect the diagnostic interpretation of the study findings. Resting and stress imaging in supine position demonstrate a medium sized, mild, fixed perfusion defect in the basal to mid anterior LV wall. Findings may be suggestive of likely soft tissue attenuation in the setting of normal regional LV systolic function. There is increased transient ischemic dilatation ratio (TID 1.22), suggestive of possible multivessel disease or balanced ischemia. Gated imaging demonstrates normal global and regional LV systolic function. LVEF is calculated at 64%. Conclusion: Technically difficult study. Soft tissue attenuation is present. No definite fixed or reversible perfusion defects. There is increased transient ischemic dilatation ratio (TID 1.22), suggestive of possible multivessel disease or balanced ischemia. Gated imaging demonstrates normal global and regional LV systolic function. LVEF is calculated at 64%. Electronically signed by : Aviva Arias MD 01/30/2023 12:37:00
--- NOTE | 2023-01-20 07:49 | CA_ITS ---
FINAL REPORT TECHNIQUE: Real-time imaging was performed of the extracranial carotid arteries in transverse and longitudinal planes, with color duplex evaluation of blood flow velocity. Spectral analysis was performed. The cervical vertebral arteries were also examined. CLINICAL HISTORY: syncope, hx SONG, HTN, hyperlipidemia, CAD COMPARISON: None FINDINGS: NASCET technique is utilized for stenosis evaluation. Right carotid system (centimeters/second): CCA: 87 ICA: 69 ECA: 103 Vertebral artery: Antegrade ICA/CCA ratio: 1.03 Mild to moderate plaque is identified at the bifurcation. Left carotid system (centimeters/second): CCA: 95 ICA: 102 ECA: 79 Vertebral artery: Antegrade ICA/CCA ratio: 1.34 Mild to moderate plaque is identified at the bifurcation. IMPRESSION: Less than 50% right ICA stenosis. Less than 50% left ICA stenosis. Antegrade flow bilateral vertebral arteries. Reviewed, Interpreted and Dictated by Kevin White MD Transcribed by Asha Merchant Authenticated and . [facility]
--- NOTE | 2023-01-20 07:49 | CA_ITS ---
APPROVED REPORT EXAM: Comprehensive 2D, Doppler, and color-flow Echocardiogram Youth Advocate: Mireya Briones RDCS Ht: 5 ft 5 in Wt: 177lbs BSA: 1.88 BP: 144/77 mmHg Indications: SYNCOPE,CAD,MURMUR,HTN,HLP 2D Dimensions LVOT 1.90 cm (M/F) 1.5-2.5 LA Volume 92.80 mL LA Volume Index 49.36 mL/m2 (M/F) 16-34 M-Mode Dimensions RVDd 1.25 cm (0.9-2.6) LA Diam 3.95 cm (1.9-4.0) LVDd 4.63 cm (3.5-5.7) Ao Diam 2.54 cm (2.0-3.7) LVDs 2.85 cm (3.5-5.7) IVSd 1.00 cm (0.6-1.1) PWd 1.19 cm (0.6-1.1) EF (Teich) 68.70% FS 38.40% EDV (Teich) 98.80 mL ESV (Teich) 30.90 mL LV Diastology E Decel Time 230.00 (160-240 msec) E/A Ratio 0.8 MED E' 4.90 (< 7 cm/sec) E'/MED E' Ratio 18.67 (>14) LAT E' 6.20 (<10 cm/sec) E/LAT E' Ratio 14.76 (>14) Aortic Valve LVOT Max 143.00 (70-110 cm/s) LVOT VTI 32.62 cm AoV Peak Niels. 214.00 (50-130 cm/s) AO Peak GR. 18.30 mmHg AO Mean GR. 9.00 (<5 mmHg) AO VTI 44.08 (18-25 cm) JATINDER (VTI) 2.10 (2.5-4.5 cm2) Mitral Valve MV E Max Niels. 91.00 (40-130 cm/s) MV A Velocity 113.00 (40-130 cm/s) E/A Ratio 0.81 MV Decel. Time 230.00 (160-240 ms) MV PHT 67.00 ms Tricuspid Valve TR P. Velocity 265.00 cm/s RAP Estimate 10.00 mmHg RVSP 38.00 mmHg Left Ventricle The left ventricle is normal size. The left ventricular systolic function is normal. The left ventricular ejection fraction is within the normal range. Proximal septal thickness is noted. There is normal LV segmental wall motion. Diastolic function is indeterminate. LVEF is 55%. Right Ventricle The right ventricle is normal size. The right ventricular systolic function is normal. Atria Left atrium is severely dilated. Right atrium is severely dilated. There is no Doppler evidence of interatrial shunt. Aortic Valve The aortic valve is mildly thickened. There is no aortic valvular stenosis. Mild aortic regurgitation. Mitral Valve Moderate mitral annular calcification. The mitral valve leaflets are mildly thickened. No evidence of mitral valve stenosis. Mild to moderate mitral regurgitation. Tricuspid Valve The tricuspid valve leaflets are thin and pliable. Mild tricuspid regurgitation. RVSP is 25-30 mmHg. Pulmonic Valve The pulmonary valve is normal in structure. Mild pulmonic regurgitation. Great Vessels The aortic root is normal in size. The ascending aorta is normal in size. IVC is normal in size and collapses >50% with inspiration. Pericardium There is no pericardial effusion. Other Information Study Quality: Fair Conclusion Normal biventricular systolic function. Severe biatrial dilatation. Mild to moderate MR. Mild AI. Mild TR. Electronically signed by : Aviva Arias MD 01/30/2023 18:55:00
--- NOTE | 2023-01-20 09:16 | CA_ITS ---
APPROVED REPORT Exam: Pharmacologic Technologist: Magda Lopez, Ht: 5 ft 5 in Wt: 177 lbs BSA: 1.88 m2 HR: 55 bpm BP: 138/66 mmHg Rhythm: NSR Medical History Medications: Aspirin,,,,, RoSUVASTATIN,,,,, Ezetimibe,,,,, Alendronate,,,,, Metoprolol Succinate ER,,,,, Calcium polycarbophil,,,,, GlUCOsamine-CHONDROITIN,,,,, Acetaminpohen,,,,, VitB,,,,, Caltrate with vit D3,,,,, Stress Test Details Test: LEXISCAN Reason for pharmacologic stress test: physical limitation. HR Resting HR: 62 bpm Max Heart Rate (APMHR): 140 bpm Max HR Achieved: 88 bpm Target HR (85% APMHR): 119 bpm % of APMHR: 63 Recovery HR: 71 bpm BP Resting BP: 138.0/66.0 mmHg Max BP: 141.0/65.0 mmHg Recovery BP: 141.0/65.0 mmHg ECG Resting ECG: NSR Stress ECG: No significant ST changes Arrhythmia: None Clinical Exercise duration: 04:00 min Highest Stage Achieved: Stress ECG Conclusion Symptoms: SOA, head discomfort. No CP. Arrhythmias/Ectopy: None ST-T Changes: No significant ST changes. Conclusion: Unremarkable Lexiscan stress. Myoview images reported separately. Test Summary REST . . . . . . . Resting REST 04:07 . . 62 . 138/ 66 . . Stage 1 01:00 . . 79 . . . . Stage 2 01:00 . . 80 . 133/ 65 . . Stage 3 01:00 . . 80 . 116/ 61 . . Stage 4 01:00 . . 77 . 122/ 62 . Stop exercise at 04:00 RECOVERY 01:00 . . 79 . . . . RECOVERY 02:00 . . 76 . . . . RECOVERY 03:00 . . 74 . 140/ 73 . . RECOVERY 03:37 . . 75 . 141/ 65 . . Electronically signed by : Aviva Arias MD 01/30/2023 12:32:58
== END ==
PROVIDERS: PCP Nurse Practitioner Family; Visit Provider Physician Assistant
DX: I25.10 Atherosclerotic heart disease of native coronary artery without angina pectoris (principal); I11.9 Hypertensive heart disease without heart failure; I25.84 Coronary atherosclerosis due to calcified coronary lesion; R55 Syncope and collapse; R94.31 Abnormal electrocardiogram [ECG] [EKG]; E78.5 Hyperlipidemia, unspecified
CPT/HCPCS: 78452; 93017; 93018; 93306; 93880; A9502; J2785

== ENCOUNTER → 2023-02-02 10:23 | Outpatient (CLI) | payer MEDICARE, SELFPAY | LOC: RT 10:25 | PROVIDERS: PCP Nurse Practitioner Family; Visit Provider Physician Assistant | DX: R55 Syncope and collapse (principal); I25.10 Atherosclerotic heart disease of native coronary artery without angina pectoris; I25.84 Coronary atherosclerosis due to calcified coronary lesion; E78.5 Hyperlipidemia, unspecified; I10 Essential (primary) hypertension; R94.31 Abnormal electrocardiogram [ECG] [EKG] | CPT/HCPCS: 93225 ==

== ENCOUNTER 2023-02-07 07:40 | Day surgery (SDC) | payer MEDICARE, SELFPAY ==
[2023-02-07] VITALS (12 sets, daily range): BP systolic 86–157; BP diastolic 42–87; PULSE 53–86; RESP 16–18; O2SAT 95–100; BMI 29.2
--- NOTE | 2023-02-07 | IR_ITS ---
APPROVED REPORT Patient Location: Outpatient Personal Development Mentor: TONO Webster RT (R) PROCEDURES Left heart catheterization Left ventriculogram Selective coronary angiogram INDICATION Calcific coronary artery disease, Angina pectoris Informed consent was obtained prior to the procedure. COMPLICATIONS None Estimated Blood Loss: Less than 10 mls TECHNIQUE One percent lidocaine used to anesthetize the right anterior aspect of the wrist. The right radial artery was accessed via the Seldinger technique. A 6 Algerian sheath was placed in the right radial artery. 2.5 mg of Verapamil, 800 mcg of nitroglycerin, 1mg Lidocaine and 5000 U Heparin were given through the arterial sheath. The papa catheter was also used to perform left heart catheterization, left ventriculogram and selective coronary angiogram. At the end of the procedure the sheath was removed good hemostasis was achieved using Traclet band, patient was transferred to the postop holding area in stable condition. ANGIOGRAPHIC RESULTS The left main artery Normal The left anterior descending artery Has proximal and mid vessel tandem 30% calcific concentric stenoses The circumflex artery Is nondominant yet still large gives rise to a large caliber first obtuse marginal artery which has a proximal concentric 40 to 50% stenosis. The right coronary artery Is a dominant vessel and has proximal to mid vessel concentric calcified 30 to 40% stenosis with distal 10 to 20% luminal irregularity The GUTIERREZ ventriculogram reveals Normal 65% The left ventricular end-diastolic pressure 10 mmHg IMPRESSION Moderate nonflow limiting calcific coronary disease as described above Normal ejection fraction Normal LVEDP PLAN 1. Consider loop recorder for syncope 2. Further workup for syncope 3. Risk factor modification Electronically signed by : Mathieu Hahn MD 02/07/2023 13:01:38
[2023-02-07 09:01] LABS: Chloride 103 mmol/L (98-107); Potassium 4.3 mmoL/L (3.5-5.1); Sodium 140 mmol/L (136-145)
[2023-02-07 09:03] LABS: Basophils % 0.5 % (0.1-2.0); Eosinophils # 0.2 K/mm3 (0.0-0.4); Eosinophils % 1.8 % (0.1-12.0); Hematocrit 41.5 % (37.0-47.0); Hemoglobin 13.6 g/dL (12.2-16.2); Lymphocytes # 2.1 K/mm3 (0.7-4.5); Lymphocytes % 24.9 % (10-50); Mean Corpuscular HGB Conc 32.8 g/dL (31.8-35.4); Mean Corpuscular Hemoglobin 33.5 pg (27.0-31.2); Mean Platelet Volume 8.7 fl (7.4-10.4); Monocytes # 0.5 K/mm3 (0.1-1.0); Monocytes % 6.4 % (1.7-9.3); Neutrophils # 5.5 K/mm3 (1.8-7.8); Neutrophils % 66.4 % (37.0-80.0); Platelet Count 209 K/mm3 (142-424); Red Blood Count 4.07 M/mm3 (4.20-5.40); Red Cell Distribution Width 13.1 % (11.5-17.5); White Blood Count 8.3 K/mm3 (4.8-10.8)
[2023-02-07 09:04] LABS: Anion Gap 12.3 mEq/L (5-15); Blood Urea Nitrogen 24 mg/dl (7-17); Carbon Dioxide 29 mmol/L (22.0-30.0); Creatinine Clearance Estimated 57 mL/min (50-200); Estimated Glomerular Filt Rate 53 ml/min (>60); GFR (African American) 65 ML/MIN (>60); Glucose 92 mg/dl (74-100)
[2023-02-07 09:05] LABS: Calcium 9.6 mg/dl (8.4-10.2)
== END 2023-02-07 15:27 | disposition home or self-care (01) ==
PROVIDERS: PCP Nurse Practitioner Family; Visit Provider Internal Medicine
DX: I25.118 Atherosclerotic heart disease of native coronary artery with other forms of angina pectoris (principal); R55 Syncope and collapse; R94.31 Abnormal electrocardiogram [ECG] [EKG]; Z79.899 Other long term (current) drug therapy; I10 Essential (primary) hypertension; E78.5 Hyperlipidemia, unspecified
CPT/HCPCS: 80048; 85025; 93458; 99152; C1725; C1769; J1644; Q9967

== ENCOUNTER 2023-03-28 07:25 | Day surgery (SDC) | payer MEDICARE, SELFPAY ==
[2023-03-28 07:30] VITALS: BMI 29.4
[2023-03-28 07:36] VITALS: BP 147/82; PULSE 62; RESP 16; TEMP 37
[2023-03-28 07:42] VITALS: PULSE 62
[2023-03-28] MEDS: CEFAZOLIN SODIUM 1 GM in 0.9 % SODIUM CHLORIDE 50 ML IV (07:50)
[2023-03-28] MEDS: LIDOCAINE 2% W/EPI 1:100,000 20ML VIAL 20 ML SQ (07:51)
[2023-03-28 08:39] VITALS: BP 124/65; PULSE 60; RESP 20; O2SAT 99
[2023-03-28 08:41] VITALS: PULSE 60
--- NOTE | 2023-03-28 08:54 | EXP.LOOP ---
[facility] Loop Recorder Date: 03/28/23 Time: 08:55 Procedure Performed:: Implantation of loop recorder Indication:: History of syncope Technique:: Patient was brought to the cardiac Regulatory Affairs Internship. After informed consent obtained, 1% lidocaine with epinephrine was used to anesthetize the site along the left anterior aspect of the chest near the sternal border. Using the preformed scalpel, an incision was made and using the supplied preloaded apparatus, the loop recorder was placed subcutaneously without difficulty. Following the deployment of the loop recorder interrogation of the device was performed to ensure appropriate voltage was being detected. Once this was verified, Steri-Strips were placed over the incision and the patient was prepped to discharge home. Patient tolerated the procedure well with minimal discomfort. Impression:: Successful implantation of loop recorder Serial Number:: [employer] EL plus Model number [id number] Serial #[id number] Plan:: Routine postop care
== END 2023-03-28 09:08 | disposition home or self-care (01) ==
PROVIDERS: PCP Nurse Practitioner Family; Visit Provider Internal Medicine
DX: R55 Syncope and collapse (principal); Z79.899 Other long term (current) drug therapy; I10 Essential (primary) hypertension; I25.10 Atherosclerotic heart disease of native coronary artery without angina pectoris; E78.5 Hyperlipidemia, unspecified; R94.31 Abnormal electrocardiogram [ECG] [EKG]
CPT/HCPCS: 33285; C1764

== ENCOUNTER 2023-07-14 10:16 | Outpatient (CLI) | payer MEDICARE, SELFPAY ==
--- NOTE | 2023-07-14 10:16 | CA_ITS ---
FINAL REPORT CLINICAL HISTORY: RIGHT ARM PAIN 5 MONTHS POST HEART CATH COMPARISON: None FINDINGS: ARTERIAL DOPPLER RIGHT RADIAL ARTERY: Arterial Doppler of the right radial artery was performed 5 months postcardiac catheterization in this vessel. There is normal-appearing triphasic flow in the right radial artery. No evidence of fistula or aneurysm is seen in the artery at the level of the wrist. IMPRESSION: No evidence of fistula or aneurysm is seen at the level of the wrist 5 months postcardiac catheterization. Reviewed, Interpreted and Dictated by Dionte Bailey III, MD Transcribed by Asha Merchant Authenticated and [facility]
== END 2023-07-14 23:59 | disposition home or self-care (01) ==
LOC: RT 10:16
PROVIDERS: PCP Nurse Practitioner Family; Visit Provider Nurse Practitioner Family
DX: I77.0 Arteriovenous fistula, acquired (principal); M79.601 Pain in right arm
CPT/HCPCS: 93931

== ENCOUNTER 2023-09-27 10:41 | Outpatient (CLI) | payer MEDICARE, SELFPAY ==
--- NOTE | 2023-09-27 10:45 | MM_ITS ---
PROCEDURE INFORMATION: Exam: MG Bilateral Screening 3D Mammography Exam date and time: 09/27/2023 10:29 AM Age: 83 years old Clinical indication: Screening. No family history of breast cancer. TECHNIQUE: Imaging protocol: Bilateral Screening tomosynthesis and 2D mammography including computer-aided detection (CAD) when performed. COMPARISON: 1. MG MM DIG SCREENING MAMM BI W/CAD 09/02/2022 4:24 PM 2. MG MM DIG SCREENING MAMM BI W/CAD 08/27/2021 10:45 AM 3. MG MM DIG SCREENING MAMM BI W/CAD 08/24/2020 9:46 AM 4. MG MM DIG SCREENING MAMM BI W/CAD 08/22/2019 11:21 AM FINDINGS: MAMMOGRAPHY: Breast composition: There are scattered areas of fibroglandular density. Mass: None. Architectural distortion: None. Calcifications: No suspicious calcifications. Asymmetric density: None. Skin thickening: None. Axillary adenopathy: None. Other findings: Loop recorder in the left upper inner quadrant, limits evaluation and accentuates the importance of clinical breast exam. IMPRESSION: No mammographic evidence of malignancy. Annual screening is recommended unless otherwise clinically indicated. ASSESSMENT: BI-RADS Category 1: Negative
== END 2023-09-27 23:59 | disposition home or self-care (01) ==
LOC: RAD 10:42
PROVIDERS: PCP Nurse Practitioner Family; Visit Provider Nurse Practitioner Family
DX: Z12.31 Encounter for screening mammogram for malignant neoplasm of breast (principal)
CPT/HCPCS: 77063; 77067

== ENCOUNTER 2023-10-11 09:12 | Outpatient (CLI) | payer MEDICARE, SELFPAY ==
--- NOTE | 2023-10-11 09:15 | XR_ITS ---
FINAL REPORT TECHNIQUE: Bone densitometry calculations of the lumbar spine and left hip were obtained. CLINICAL HISTORY: SCREENING FINDINGS: Using L1-4, the bone mineral density of the spine is 1.317 g/cm2, corresponding to T-score of 2.5. Using the right forearm, the bone mineral density of the femoral neck is 0.532 g/cm2, corresponding to a T-score of -2.7. NOTE: T-score: Standard deviation compared with peak bone mass of young adult mean. *Following the recommendations of the International Society of Bone Densitometry, classification of hip BMD is based on the lower of two T-scores; total hip or femoral neck. IMPRESSION: Osteoporosis: Lowest T-score is at or below -2.5. This patient's T-score meets the World Health Organization criteria for osteoporosis. Reviewed, Interpreted and Dictated by Dionte Bailey III, MD Transcribed by Asha Merchant Authenticated and [facility]
== END 2023-10-11 23:59 | disposition home or self-care (01) ==
LOC: RAD 09:13
PROVIDERS: PCP Nurse Practitioner Family; Visit Provider Nurse Practitioner Family
DX: M81.0 Age-related osteoporosis without current pathological fracture (principal)
CPT/HCPCS: 77080

== ENCOUNTER 2024-07-11 08:37 | Day surgery (SDC) | payer MEDICARE, SELFPAY ==
[2024-07-11 08:46] VITALS: BMI 30.7
[2024-07-11 08:50] VITALS: BP 146/69; PULSE 59; RESP 16; O2SAT 95
[2024-07-11] MEDS: LIDOCAINE 2% W/EPI 1:100,000 20ML VIAL 20 ML SUBCUT (10:45)
[2024-07-11 10:58] VITALS: BP 116/58; PULSE 80; RESP 18; O2SAT 95
[2024-07-11 11:00] VITALS: BP 131/70; PULSE 78; RESP 18; O2SAT 98
[2024-07-11] MEDS: CEFAZOLIN SODIUM 1 GM in 0.9 % SODIUM CHLORIDE 50 ML IV (11:08)
[2024-07-11 11:18] VITALS: BP 129/66; PULSE 75; RESP 18; O2SAT 98
--- NOTE | 2024-07-12 09:06 | P.PCN_ITS ---
[facility] Procedure Note Date: 07/11/24 Time: 10:55
--- NOTE | 2024-07-12 09:06 | HMH.PROCNOTE ---
[facility] Procedure Note Date: 07/11/24 Time: 10:55
--- NOTE | 2024-07-12 09:13 | EXP.LOOP ---
[facility] Loop Recorder Date: 07/11/24 Time: 10:55 Procedure Performed:: Removal of loop recorder Indication:: Patient wants it removed Technique:: Patient was brought to the cardiac Reg[facility]al [facility] as an outpatient. After informed consent was obtained, 1% lidocaine was used to anesthetize the area over the loop recorder. Scalpel was used to dissect down to the loop recorder and forceps used to remove the device without complication. Steri-Strips and Dermabond were used to approximate the edges and a Tegaderm was placed over a sterile gauze. Patient tolerated without complications. Impression:: Successful removal of loop recorder Serial Number:: not indicated Plan:: Routine postop
== END 2024-07-11 11:24 | disposition home or self-care (01) ==
LOC: CATHLAB 08:38
PROVIDERS: PCP Nurse Practitioner Family; Visit Provider Internal Medicine
DX: Z45.09 Encounter for adjustment and management of other cardiac device (principal); I34.0 Nonrheumatic mitral (valve) insufficiency; I25.10 Atherosclerotic heart disease of native coronary artery without angina pectoris; I10 Essential (primary) hypertension; E78.5 Hyperlipidemia, unspecified; Z79.899 Other long term (current) drug therapy; R55 Syncope and collapse
CPT/HCPCS: 33286; J0690

== ENCOUNTER 2024-07-22 09:25 | Outpatient (CLI) | payer MEDICARE, SELFPAY ==
--- NOTE | 2024-07-22 09:29 | CA_ITS ---
APPROVED REPORT EXAM: Comprehensive 2D, Doppler, and color-flow Echocardiogram Air Breaker Operator: Ne Baldwin RVT Ht: 5 ft 5 in Wt: 181lbs BSA: 1.90 BP: 156/86 mmHg Indications: CAD,MR,HTN,MURMUR,HLD 2D Dimensions IVSd 1.01 cm F: 0.6-1.0 LVEF (Visual) 58.20 % PWd 0.90 cm F: 0.6 - 1.0 LA Volume 79.90 mL LVDd 4.70 cm F: 3.9 - 5.3 LA Volume Index 42.05 mL/m2 (M/F) 16-34 LVDs 3.26 cm F: 2.2 - 3.5 M-Mode Dimensions LA Diam 4.41 cm (1.9-4.0) TAPSE 2.33 (<1.7) LV Diastology E Decel Time 187 (160-240 msec) E/A Ratio 0.9 Aortic Valve JATINDER Index 1.05 cm2/m2 AoV Peak Niels. 229.0 (50-130 cm/s) AO Peak GR. 21.00 mmHg AO Mean GR. 12.00 (<5 mmHg) AO VTI 48.8 (18-25 cm) JATINDER (VTI) 2.03 (2.5-4.5 cm2) Mitral Valve MV E Max Niels. 105.0 (40-130 cm/s) MV A Velocity 114.0 (40-130 cm/s) E/A Ratio 0.92 MV Mean Gr. 1.80 (<2mmHg) MV PHT 55.0 ms Pulmonary Valve PV Peak Velocity 70.0 (50-150 cm/s) Tricuspid Valve TR P. Velocity 289.00 cm/s RAP Estimate 10.00 mmHg RVSP 43.30 mmHg Left Ventricle The left ventricle is normal size. The left ventricular systolic function is normal. The left ventricular ejection fraction is within the normal range. There is increased LV wall thickness. There is normal LV segmental wall motion. Diastolic function is indeterminate. LVEF is 55%. Right Ventricle Right ventricle is mildly dilated. The right ventricular systolic function is normal. Atria Left atrium is severely dilated. Right atrium is severely dilated. There is no Doppler evidence of interatrial shunt. Aortic Valve The aortic valve is mildly thickened. Mild aortic stenosis is present. JATINDER by continuity equation is 1.8 cm2. Peak velocity is 2.3 m/s. Mean AV gradient is 12 mmHg. Max AV gradient is 20 mmHg. Trace aortic regurgitation. Mitral Valve Moderate mitral annular calcification. The mitral valve leaflets are mildly thickened. No evidence of mitral valve stenosis. Moderate mitral regurgitation. Tricuspid Valve Tricuspid valve is grossly normal in structure and function. Mild tricuspid regurgitation. RVSP 20-25 mmHg. Pulmonic Valve The pulmonary valve is normal in structure. Mild pulmonic regurgitation. Great Vessels The aortic root is normal in size. IVC is normal in size and collapses >50% with inspiration. Pericardium There is no pericardial effusion. Other Information Study Quality: Fair Conclusion Normal biventricular systolic function. Mild RV dilation. Severe biatrial dilation. Mild (JATINDER by continuity equation is 1.8 cm2. Peak velocity is 2.3 m/s. Mean AV gradient is 12 mmHg. Max AV gradient is 20 mmHg). Moderate MAC. Moderate MR. No MS. Mild TR, mild PI. Electronically signed by : Aviva Arias MD 07/29/2024 20:39:13
== END 2024-07-22 23:59 | disposition home or self-care (01) ==
LOC: RT 09:26
PROVIDERS: PCP Nurse Practitioner Family; Visit Provider Physician Assistant
DX: I08.8 Other rheumatic multiple valve diseases (principal); I11.9 Hypertensive heart disease without heart failure; I25.10 Atherosclerotic heart disease of native coronary artery without angina pectoris; R94.31 Abnormal electrocardiogram [ECG] [EKG]; E78.5 Hyperlipidemia, unspecified
CPT/HCPCS: 93306

== ENCOUNTER 2024-11-25 08:45 | Outpatient (CLI) | payer MEDICARE, SELFPAY ==
--- OUTSIDE RECORDS SUMMARY | 2024-06-08 17:30 | XMS_ITS ---
Author Organization [facility] Address [address] [place] [address] Care Team Providers Care Rattan Worker Name Role Phone Sloane Sweeney Primary Care Provider [phone] Migration, Provider Unavailable Unavailable REASON FOR VISIT [facility] To [facility] Conversion Encounter Medications Medication SIG (Take, Route, Frequency, Duration) Notes Start Date End Date Status Caltrate 600+D Plus Minerals 600-800 MG-UNIT 1 tab(s) orally 2 times a day Active FiberCon 6 CAPS ORALLY EVERY DAY *Please review and pick correct strength-formulatio n from [employer] options. If intended option is not shown, discontinue and re-order from Quick Search* Active Glucosamine-Chondroit in 1 TAB ORALLY TWICE DAILY *Please review and pick correct strength-formulatio n from [employer] options. If intended option is not shown, discontinue and re-order from Quick Search* Active Tylenol Extra Strength 500 MG 2 tab(s) orally twice daily Active Aspirin 81 MG 1 TAB(S) ORALLY ONCE A DAY *Please review and pick correct strength-formulatio n from [employer] options. If intended option is not shown, discontinue and re-order from Quick Search* Active VITAMIN B-100 COMPLEX TIMED RELEASE VITAMIN B COMPLEX 1 TAB(S) ORALLY ONCE A DAY *Please review for potential replacement for e-prescription and drug interaction check* Active Claritin 10 MG 1 tab(s) orally once a day Active Ezetimibe 10 MG 1 tab(s) orally once a day; Duration: 90 days Active Rosuvastatin Calcium 10 MG 1 tab(s) orally once a day; Duration: 90 days Active Metoprolol Succinate ER 100 MG 1 tab(s) orally once a day; Duration: 90 days Active amLODIPine Besylate 2.5 MG 1 tab(s) orally once a day; Duration: 90 days Active Alendronate Sodium 70 MG 1 tab(s) orally once a week; Duration: 90 days Active Encounters Encounter Location Date Provider Diagnosis [facility] [address] [place] [address] 06/08/2024 Provider Migration Plan Of Treatment Medication Medication Name Sig Start Date Stop Date Notes Ezetimibe 10 MG 1 tab(s) orally once a day; Duration: 90 days Rosuvastatin Calcium 10 MG 1 tab(s) oral ly once a day; Duration: 90 days Metoprolol Succinate ER 100 MG 1 tab(s) orally once a day; Duration: 90 days Progress Notes * Rox SWEENEYDOB:[birth year] (84 yo F)Acc No.[id number]:06/08/2024 Patient: Rox SHERIDAN Provider: Neo gifford Migration :1940 A ge:84 Y S ex:Female Date:06/08/2024 Address:[address] [place] [address], [id number] Pcp:Sloane Sweeney Subjective: * Chief Complaints: * [facility] . [facility] * Medical History: * Medications: T aking Claritin 10 MG Tablet 1 tab(s) orally once a day , Taking VITAMIN B-100 COMPLEX TIMED RELEASE VITAMIN B COMPLEX TABLET, EXTENDED RELEASE 1 TAB(S) ORALLY ONCE A DAY , Notes to Pharmacist: *Please review for potential replacement for e-prescription and drug interaction check*, Taking FiberCon CAP 6 CAPS ORALLY EVERY DAY , Notes to Pharmacist: *Please review and pick correct strength-formulation [facility]. If intended option is not shown, discontinue and re-order from Quick Search*, Taking Glucosamine-Chondroitin PO 1 TAB ORALLY TWICE DAILY , Notes to Pharmacist: *Please review and pick correct strength-formulation from [employer] options. If intended option is not shown, discontinue and re-order from Quick Search*, Taking Tylenol Extra Strength 500 MG Tablet 2 tab(s) orally twice daily , Taking Aspirin 81 MG TABLET 1 TAB(S) ORALLY ONCE A DAY , Notes to Pharmacist: *Please review and pick correct strength-formulation from [employer] options. If intended option is not shown, discontinue and re-order from Quick Search*, Taking Caltrate 600+D Plus Minerals 600-800 MG-UNIT Tablet 1 tab(s) orally 2 times a day , Taking amLODIPine Besylate 2.5 MG Tablet 1 tab(s) orally once a day , Taking Alendronate Sodium 70 MG Tablet 1 tab(s) orally once a week Objective: * Vitals: Assessment: Plan: * Treatment: * * Electronic signature of Quique reinoso Migration on 11/25/2024 at 09:14 AM EDT Sign off status: Pending * Provider: Neo gifford Migration Date: 06/08/2024 Generated for Luann oconnor/Sandy/Bud on: 11/25/2024 09:14 AM EDT
--- OUTSIDE RECORDS SUMMARY | 2024-10-10 07:30 | XMS_ITS ---
Author Organization [facility] D DIPAK Address [address] [place] [address] Care Team Providers Care Marketing Information Coordinator Name Role Phone Sloane Sweeney Primary Care Provider Allergies No Known Allergies Results Component Value Reference Range Notes LIPID PANEL, STANDARD (7600) Reviewed date:10/15/2024 03:16:25 PM Interpretation: Performing Lab:CB, [facility] [address], [facility] CenterMinsRX[address] Jian Frias Notes/Report: NON-FASTING; NON-FASTING; NON-FASTING; NON-FASTING FASTING:YES FASTING: YES CHOLESTEROL, TOTAL 148 <200 mg/dL HDL CHOLESTEROL 73 > OR = 50 mg/dL TRIGLYCERIDES 102 <150 mg/dL LDL-CHOLESTEROL 56 <70 mg/dL for patients with CHD or diabetic patients with > or = 2 CHD risk factors. LDL-C is now calculated using the Keegan-Rayo calculation, which is a validated novel method providing better accuracy than the Friedewald equation in the estimation of LDL-C. Keegan SS et al. SARAI. 2013;310(19): 8558-2813 (http://education.[employer].com/faq/F AQ164) Reference range: <100 Desirable range <100 mg/dL for primary prevention; CHOL/HDLC RATIO 2.0 <5.0 (calc) NON HDL CHOLESTEROL 75 <130 mg/dL (calc) For patients with diabetes plus 1 major ASCVD risk factor, treating to a non-HDL-C goal of <100 mg/dL (LDL-C of <70 mg/dL) is considered a therapeutic option. COMPREHENSIVE METABOLIC PANE Lisa (26724) Reviewed date:10/15/2024 03:16:25 PM Interpretation: Performing Lab:[facility] [id number] [facility] HospitalUzstUC[address] Jian Frias Notes/Report: NON-FASTING; NON-FASTING; NON-FASTING; NON-FASTING FASTING:YES FASTING: YES GLUCOSE 78 65-99 mg/dL Fasting reference interval UREA NITROGEN (BUN) 32 7-25 mg/dL CREATININE 0.97 0.60-0.95 mg/dL EGFR 58 > OR = 60 mL/min/1.73m2 BUN/CREATININE RATIO 33 6-22 (calc) SODIUM 140 135-146 mmol/L POTASSIUM 4.4 3.5-5.3 mmol/L CHLORIDE 102 98-110 mmol/L CARBON DIOXIDE 28 20-32 mmol/L CALCIUM 10.1 8.6-10.4 mg/dL PROTEIN, TOTAL 7.6 6.1-8.1 g/dL ALBUMIN 4.3 3.6-5.1 g/dL GLOBULIN 3.3 1.9-3.7 g/dL (calc) ALBUMIN/GLOBULIN RATIO 1.3 1.0-2.5 (calc) BILIRUBIN, TOTAL 0.6 0.2-1.2 mg/dL ALKALINE PHOSPHATASE 54 37-153 U/L AST 21 10-35 U/L ALT 13 6-29 U/L CBC (INCLUDES DIFF/PLT) (639 9) Reviewed date:10/15/2024 03:16:25 PM Interpretation: Performing Lab:[facility] [id number] [facility] HospitalHcjqFS[address] Jian Frias Notes/Report: NON-FASTING; NON-FASTING; NON-FASTING; NON-FASTING FASTING:YES FASTING: YES WHITE BLOOD CELL COUNT 7.1 3.8-10.8 Thousand/ uL RED BLOOD CELL COUNT 3.95 3.80-5.10 Million/uL HEMOGLOBIN 13.1 11.7-15.5 g/dL HEMATOCRIT 41.3 35.0-45.0 % MCV 104.6 80.0-100.0 fL MCH 33.2 27.0-33.0 pg MCHC 31.7 32.0-36.0 g/dL For adults, a slight decrease in the calculated MCHC value (in the range of 30 to 32 g/dL) is most likely interpreted with caution in correlation with other red cell parameters and the patient's clinical condition. not clinically significant; however, it should be RDW 12.1 11.0-15.0 % PLATELET COUNT 200 140-400 Thousand/uL MPV 11.0 7.5-12.5 fL ABSOLUTE NEUTROPHILS 4494 8014-3913 cells/uL ABSOLUTE LYMPHOCYTES 2587 450-7687 cells/uL ABSOLUTE MONOCYTES 497 200-950 cells/uL ABSOLUTE EOSINOPHILS 149 15-500 cells/uL ABSOLUTE BASOPHILS 28 0-200 cells/uL NEUTROPHILS 63.3 LYMPHOCYTES 27.2 MONOCYTES 7.0 EOSINOPHILS 2.1 BASOPHILS 0.4 VITAMIN B12/FOLATE, SERUM PA LEYLA (7065) Reviewed date:10/15/2024 03:16:25 PM Interpretation: Performing Lab:[facility] [address] [facility]Market[facility] Center[address] Jian Frias Notes/Report: NON-FASTING; NON-FASTING; NON-FASTING; NON-FASTING FASTING:YES FASTING: YES VITAMIN B12 785 267-8764 pg/mL FOLATE, SERUM >24.0 Normal: >5.4 Reference Range Low: <3.4 Borderline: 3.4-5.4 VITAMIN D,25-OH,TOTAL,IA (17 306) Reviewed date:10/15/2024 03:16:25 PM Interpretation: Performing Lab:[facility] [address] SolutionsteSt[facility] Mary Medical Center[address] Jian Frias Notes/Report: NON-FASTING; NON-FASTING; NON-FASTING; NON-FASTING FASTING:YES FASTING: YES VITAMIN D,25-OH,TOTAL,IA 40 30-100 ng/mL educational purposes only.) Vitamin D Status 25-OH Vitamin D: Deficiency: <20 ng/mL Insufficiency: 20 - 29 ng/mL Optimal: > or = 30 ng/mL For 25-OH Vitamin D testing on patients on D2-supplementation and patients for whom quantitation of D2 and D3 fractions is required, the [facility]) 25-OH VIT D, (D2,D3), LC/MS/MS is recommended: order code 81133 (patients >2yrs). See Note 1 Note 1 For additional information, please refer to http://education.[facility]/faq/FA Q199 (This link is being provided for informational/ TEST AUTHORIZATION Reviewed date:10/14/2024 05:36:33 PM Interpretation: Performing Lab:[facility] [address], Reg KnappEdgiOL[address] Jian Frias Notes/Report: NON-FASTING; NON-FASTING; NON-FASTING; NON-FASTING FASTING:YES FASTING: YES TEST NAME: VITAMIN B12/FOLATE, TEST CODE: 7065SB CLIENT CONTACT: SAMIRA ADHIKARIKRISTIAN REPORT ALWAYS MESSAGE SIGNATURE The laboratory testing on this patient was verbally requested or confirmed by the ordering physician or his or her authorized mill representative after contact with an employee of [facility]. Federal regulations require that we maintain on file written authorization for all laboratory testing. Accordingly we are asking that the ordering physician or his or her authorized mill representative sign a copy of this report and promptly return it to the patient financial representative. Signature: COMMENT do not use this fax number for other service requests. Please fax this signed form to [phone]. Please do not attempt to return this document by other methods. Documents will not be viewed by a mill representative. Please Reason For Referral Reason Mamm and DEXA, morni ng appt Diagnosis 1 Medicare annual well ness visit, subsequent (Z00.00) Referral Organization [facility] Referring Provider First Name Sloane Referring Provider Last Name Zahra Referring Provider Speciality [facility] Referred Organization [facility] Referred Address [address] [facility] [facility], [place], [place],[address], Referred Provider Specialty Diagnostic R adiology Referral Priority Routine REASON FOR VISIT AWV Medications Medication SIG (Take, Route, Frequency, Duration) Notes Start Date End Date Status Ezetimibe 10 MG 1 tab(s) orally once a day; Duration: 90 days Active Metoprolol Succinate ER 100 MG 1 tab(s) orally once a day; Duration: 90 days Active Caltrate 600+D Plus Minerals 600-800 MG-UNIT 1 tab(s) orally 2 times a day Active Aspirin 81 MG 1 TAB(S) ORALLY ONCE A DAY *Please review and pick correct strength-formulatio n from [employer] options. If intended option is not shown, discontinue and re-order from Quick Search* Active Tylenol Extra Strength 500 MG 2 tab(s) orally twice daily Active Glucosamine-Chondroit in 1 TAB ORALLY TWICE DAILY *Please review and pick correct strength-formulatio n from [employer] options. If intended option is not shown, discontinue and re-order from Quick Search* Active FiberCon 6 CAPS ORALLY EVERY DAY *Please review and pick correct strength-formulatio n from [employer] options. If intended option is not shown, discontinue and re-order from Quick Search* Active VITAMIN B-100 COMPLEX TIMED RELEASE VITAMIN B COMPLEX 1 TAB(S) ORALLY ONCE A DAY *Please review for potential replacement for e-prescription and drug interaction check* Active Rosuvastatin Calcium 10 MG 1 tab(s) orally once a day; Duration: 90 days Active Claritin 10 MG 1 tab(s) orally once a day Active amLODIPine Besylate 2.5 MG TAKE 1 TABLET BY MOUTH DAILY; Duration: 90 Active Alendronate Sodium 70 MG TAKE 1 TABLET BY MOUTH 1 TIME A WEEK; Duration: 84 Active Problems Problem Type SNOMED Code ICD Code Onset Dates Problem Status W/U Status Risk Notes Problem Body mass index 30+ - obesity (558815972) BMI 30.0-30.9,a dult (Z68.30) Active confirmed Vital Signs Temperature 97.5 degrees Fahrenheit 10/11/19 25 Blood pressure systolic 148 mm Hg 10/11/19 25 Blood pressure diastolic 70 mm Hg 025 Heart Rate 60 /min 10/10/2024 Height 63.25 in 10/10/2024 Weight 178.4 lbs 10/10/2024 BMI 31.35 kg/m2 10/10/2024 Encounters Encounter Location Date Provider Diagnosis [facility] DIPAK [address] [place], [place] [address] 10/10/2024 Sloane Sweeney Essential hypertensi on I10 ; Medicare annual wellness visit, subsequent Z00.00 ; Hyperlipidemia, unspecified E78.5 ; Stage 3a chronic kidney disease N18.31 ; Primary osteoarthritis involving multiple joints M15.0 ; Osteoporosis, 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 ; Hypercalcemia E83.52 ; BMI 30.0-30.9,adult Z68.30 and Obesity, Class I, BMI 30-34.9 E66.811 Assessments Encounter Date Diagnosis (ICD Code) Assessment Notes Treatment Notes Treatment Clinical Notes Section Notes 10/10/2024 Essential hypertension (ICD-10 - I10) 10/10/2024 Medicare annual wellness visit, subsequent (ICD-10 - Z00.00) Repeat DEXA, if stable will DC Fosamax due to length of therapy Desires ongoing mammography Encouraged Shingrix vaccination at pharmacy 10/10/2024 Hyperlipidemia, unspecified (ICD-10 - E78.5) continue statin therapy 10/10/2024 Stage 3a chronic kidney disease (ICD-10 - N18.31) stable 10/10/2024 Primary osteoarthritis involving multiple joints (ICD-10 - M15.0) continue tylenol as needed 10/10/2024 Osteoporosis, post-menopausal (ICD-10 - M81.0) 10/10/2024 Hypercalcemia (ICD-10 - E83.52) 10/10/2024 BMI 30.0-30.9,adult (ICD-10 - Z68.30) 10/10/2024 Obesity, Class I, BMI 30-34.9 (ICD-10 - E66.811) Plan Of Treatment Treatment Notes Assessment Notes Hyperlipidemia, unspecified continue sta tin therapy Stage 3a chronic kidney disease stable Primary osteoarthritis involving multipl e joints continue tylenol as needed Referrals Referral Date Details 10/12/2024 10/12/2024, Mamm and DEXA, morning appt, [address] [place], [address], Next Appt Details Follow Up: 6 Months, Reason: Progress Notes * Rox SWEENEYDOB:[birth year] (84 yo F)Acc No.[id number]:10/10/2024 Progress Notes Patient: Rox SHERIDAN Provider: KATH Franklin :1940 A ge:84 Y S ex:Female Date:10/10/2024 Address:[facility] [address], [place], [place] Subjective: * Chief Complaints: * 1 . AWV. * HPI: C ardiology: 84 year old presents today for routine FU. Has no acute compliants today She is taking her medication as prescribed with no side effects. Checks BP periodically Continues to try to follow a low potassium diet due to chronic hyperkalemia, potassium normal on most recent labs She has been following with cardiology at [facility]. Loop recorder recently removed. No recurrence of syncopal events over the past year. No falls in the past. Still taking weekly fosamax, some improvement in density last year. Denies : chest pain. D enies : shortness of breath. D enies : dizziness. D enies : palpitations. D enies : leg edema. D enies : fatigue. D enies : cyanosis. D enies : diaphoresis. H ip/Thigh: left SI pain, no groin pain. Uses tylenol BID as noted for back and joint pain which she feels is stable overall. * ROS: F UNCTIONAL STATUS: ADLS I ndependent for all ADL/IADL. R ESPIRATORY: Shortness of breath y es, w orse with exertion, at baseline. n o C hest pain. C ARDIOLOGY: See HPI Y es. n o D izziness. n o C hest pain. n o P alpitations. C ONSTITUTIONAL: no L oss of appetite. n o F ever. n o F atigue. D ERMATOLOGY: no R yogesh. E NDOCRINOLOGY: no P olydypsia. n o P olyuria. n o W eight loss. G ASTROENTEROLOGY: Reviewed, No Symptoms Reported: Y es. M USCULOSKELETAL: Joint stiffness y es. J oint pain y es. ? N EUROLOGY: no T ingling numbness. n o S eizures. M jeannette loss y es, s hort term, doesn't feel as comfortable driving, tells her children the same things, still able to pay bills and balance checkbook, etc. P SYCHOLOGY: High stress level y es. U ROLOGY: no D ifficulty urinating. n o F requent urination.?Urinary incontinence y es. * Medical History: H yperlipidemia, Hypertension, Osteoporosis of hips, Fosamax started around 2016, Colonoscopy 2016, tubular adenoma, Heart murmur, mild , echo 04/2017, Carotid stenosis, doppler 2018 stable, Mild positional NIKHIL, sleep study done 2017, Hyperkalemia, A+ blood type. * Surgical History: T ubal Ligation 1981, Appendectomy 2005, Lt hip replacement 2006, Rt knee replacement 2010, Lt knee replacement 2012, Heart cath 01/2023, Loop Recorder . * Hospitalization/Major Diagno stic Procedure: a ll above surgeries , broken ankle 1973, miscarriage 1974, observation for chest pain 2012, gallbladder 04/23. * Family History: F ather: unknown. M other: , uterine cancer, diagnosed with Cancer, Heart Disease.?Paternal Grand Father: unknown. P aternal Grand Mother: unknown. M aternal Grand Father: . M aternal Grand Mother: . M aternal uncle: . S iblings: alive. Argelia wei: alive, Son, CVA due to PFO that is now repaired, diagnosed with Stroke. 1 brother(s) , 5 sister(s) . 1 son(s) , 1 daughter(s) . . Grandaughter with type 1 DM during teenage years. * Social History: S moking A re you a:: nonsmoker. R ecreational drug use: no. Exercise: no. Home smoke detector use: yes. Caffeine: no. Living Will: No. Alcohol: no. Sexually active: no. Travel outside [place]: no. Occupation: retired. * Medications: T aking Claritin 10 MG [...] *Please review and pick correct strength-formulation from [employer] options. If intended option is not shown, discontinue and re-order from Quick Search*, Taking Glucosamine-Chondroitin PO 1 TAB ORALLY TWICE DAILY , Notes to Pharmacist: *Please review and pick correct strength-formulation from [employer] options. If intended option is not shown, discontinue and re-order from Quick Search*, Taking Tylenol Extra Strength 500 MG Tablet 2 tab(s) orally twice daily , Taking Aspirin 81 MG TABLET 1 TAB(S) ORALLY ONCE A DAY , Notes to Pharmacist: *Please review and pick correct strength-formulation from [facility] options. If intended option is not shown, discontinue and re-order from Quick Search*, Taking Caltrate 600+D Plus Minerals 600-800 MG-UNIT Tablet 1 tab(s) orally 2 times a day , Taking Metoprolol Succinate ER 100 MG Tablet Extended Release 24 Hour 1 tab(s) orally once a day , Taking Ezetimibe 10 MG Tablet 1 tab(s) orally once a day , Taking Alendronate Sodium 70 MG Tablet TAKE 1 TABLET BY MOUTH 1 TIME A WEEK , Taking amLODIPine Besylate 2.5 MG Tablet TAKE 1 TABLET BY MOUTH DAILY , Taking Rosuvastatin Calcium 10 MG Tablet 1 tab(s) orally once a day , Medication List reviewed and reconciled with the patient * Allergies: N .K.D.A. Objective: * Vitals: N urse: KJ, Pain: 0, Temp: 97.5, RR: 18, HR: 60, BP: 148/70, Ht: 63.25, Wt: 178.4, BMI:31.35. * Examination: C ardiology: Carotid upstroke: n ormal, no bruit. Heart sounds: r egular, normal S1, S2, no S3 or S4. Murmur, click , gallop: s oft systolic. Lungs: n o rales or wheezes. Abdomen: s oft, BS present, NT/ND, no masses. Peripheral pulses: 2 plus bilateral. skin w ithout acute rashes. Lower extremities n o leg edema, arthritic changes of hands, wrists. General appearance p leasant, NAD. Assessment: * Assessment: 1. M [facility] annual wellness visit, subsequent - Z00.00 (Primary) 2 . E ssential hypertension - I10 3 . H yperlipidemia, unspecified - E78.5 ?4. S tage 3a chronic kidney disease - N18.31 5 . P rimary osteoarthritis involving multiple joints - M15.0 6 . O steoporosis, post-menopausal - M81.0? 7. H ypercalcemia - E83.52 8 . B VT 30.0-30.9,adult - Z68.30? 9. O besity, Class I, BMI 30-34.9 - E66.811 Plan: * Treatment: 2. E ssential hypertension L AB: LIPID PANEL, STANDARD (7600) (Collection Date & Time - 10/10/2024 12:27 PM) Value Reference Range T RIGLYCERIDES 102 <150 - mg/dL * C HOLESTEROL, TOTAL 148 <200 - mg/dL * H DL CHOLESTEROL 73 > OR = 50 - mg/dL * L DL-CHOLESTEROL 56 - mg/dL (calc) * C HOL/HDLC RATIO 2.0 <5.0 - (calc) * N ON HDL CHOLESTEROL 75 <130 - mg/dL (calc) * Marcie Hui 10/15/19 10:28:33 AM EDT > left vm Marcie Hui N 10/15/2024 03:15:56 PM EDT > pt informedThis lab was reviewed by Marcie Hui on 10/15/2024 at 15:16 PM EDT ?LAB: COMPREHENSIVE METABOLIC PANEL (83381) (Collection Date & Time - 10/10/2024 12:27 PM)* Value Reference Range G LUCOSE 78 65-99 - mg/dL * U NISHANT NITROGEN (BUN) 32 H 7-25 - mg/dL * C REATININE 0.97 H 0.60-0.95 - mg/dL * B UN/CREATININE RATIO 33 H 6-22 - (calc) * S ODIUM 140 135-146 - mmol/L * P OTASSIUM 4.4 3.5-5.3 - mmol/L * C HLORIDE 102 98-110 - mmol/L * C ARBON DIOXIDE 28 20-32 - mmol/L * C ALCIUM 10.1 8.6-10.4 - mg/dL * P ROTEIN, TOTAL 7.6 6.1-8.1 - g/dL * A LBUMIN 4.3 3.6-5.1 - g/dL * G LOBULIN 3.3 1.9-3.7 - g/dL (calc ) * A LBUMIN/GLOBULIN RATIO 1.3 1.0-2.5 - (calc) * B ILIRUBIN, TOTAL 0.6 0.2-1.2 - mg/dL * A LKALINE PHOSPHATASE 54 37-153 - U/L * A ST 21 10-35 - U/L * A LT 13 6-29 - U/L * E GFR 58 L > OR = 60 - mL/min/1 .73m2 * Marcie Hui 10/15/19 10:28:33 AM EDT > left vm Marcie Hui N 10/15/2024 03:15:56 PM EDT > pt informedThis lab was reviewed by Marcie Hui on 10/15/2024 at 15:16 PM EDT ?LAB: CBC (INCLUDES DIFF/PLT) (7010) (Collection Date & Time - 10/10/2024 12:27 PM)* Value Reference Range W MALIK BLOOD CELL COUNT 7.1 3.8-10.8 - Thousan d/uL * R ED BLOOD CELL COUNT 3.95 3.80-5.10 - Million/ uL * H EMOGLOBIN 13.1 11.7-15.5 - g/dL * H EMATOCRIT 41.3 35.0-45.0 - % * M CV 104.6 H 80.0-100.0 - fL * M CH 33.2 H 27.0-33.0 - pg * M CHC 31.7 L 32.0-36.0 - g/dL * R DW 12.1 11.0-15.0 - % * P LATELET COUNT 200 140-400 - Thousand/u L * N EUTROPHILS 63.3 - % * A BSOLUTE NEUTROPHILS 4494 7109-6877 - cells/uL * L YMPHOCYTES 27.2 - % * A BSOLUTE LYMPHOCYTES 8937 345-1814 - cells/uL * M ONOCYTES 7.0 - % * A BSOLUTE MONOCYTES 497 200-950 - cells/uL * E OSINOPHILS 2.1 - % * A BSOLUTE EOSINOPHILS 149 15-500 - cells/uL * B ASOPHILS 0.4 - % * A BSOLUTE BASOPHILS 28 0-200 - cells/uL * M PV 11.0 7.5-12.5 - fL * Marcie Hui Jovana 10/15/19 10:28:33 AM EDT > left vm Marcie Hui N 10/15/2024 03:15:56 PM EDT > pt informedThis lab was reviewed by Marcie Hui on 10/15/2024 at 15:16 PM EDT ?LAB: VITAMIN D,25-OH,TOTAL,IA (08200) (Collection Date & Time - 10/10/2024 12:27 PM)* Value Reference Range V ITAMIN D,25-OH,TOTAL,IA 40 30-100 - ng/mL * Marcie Hui Jovana 10/15/19 10:28:33 AM EDT > left vm Marcie Hui N 10/15/2024 03:15:56 PM EDT > pt informedThis lab was reviewed by Marcie Hui on 10/15/2024 at 15:16 PM EDT 3.?Hyperlipidemia, unspecified?LAB: LIPID PANEL, STANDARD (7600) (Collection Date & Time - 10/10/2024 12:27 PM)* Value Reference Range T RIGLYCERIDES 102 <150 - mg/dL * C HOLESTEROL, TOTAL 148 <200 - mg/dL * H DL CHOLESTEROL 73 > OR = 50 - mg/dL * L DL-CHOLESTEROL 56 - mg/dL (calc) * C HOL/HDLC RATIO 2.0 <5.0 - (calc) * N ON HDL CHOLESTEROL 75 <130 - mg/dL (calc) * Marcie Hui 10/15/19 10:28:33 AM EDT > left vm Marcie Hui 10/15/2024 03:15:56 PM EDT > pt informedThis lab was reviewed by Marcie Hui on 10/15/2024 at 15:16 PM EDT ?LAB: COMPREHENSIVE METABOLIC PANEL (53305) (Collection Date & Time - 10/10/2024 12:27 PM)* Value Reference Range G LUCOSE 78 65-99 - mg/dL * U NISHANT NITROGEN (BUN) 32 H 7-25 - mg/dL * C REATININE 0.97 H 0.60-0.95 - mg/dL * B UN/CREATININE RATIO 33 H 6-22 - (calc) * S ODIUM 140 135-146 - mmol/L * P OTASSIUM 4.4 3.5-5.3 - mmol/L * C HLORIDE 102 98-110 - mmol/L * C ARBON DIOXIDE 28 20-32 - mmol/L * C ALCIUM 10.1 8.6-10.4 - mg/dL * P ROTEIN, TOTAL 7.6 6.1-8.1 - g/dL * A LBUMIN 4.3 3.6-5.1 - g/dL * G LOBULIN 3.3 1.9-3.7 - g/dL (calc ) * A LBUMIN/GLOBULIN RATIO 1.3 1.0-2.5 - (calc) * B ILIRUBIN, TOTAL 0.6 0.2-1.2 - mg/dL * A LKALINE PHOSPHATASE 54 37-153 - U/L * A ST 21 10-35 - U/L * A LT 13 6-29 - U/L * E GFR 58 L > OR = 60 - mL/min/1 .73m2 * Marcie Hui 10/15/19 10:28:33 AM EDT > left vm Marcie Hui 10/15/2024 03:15:56 PM EDT > pt informedThis lab was reviewed by Marcie Hui on 10/15/2024 at 15:16 PM EDT ?LAB: CBC (INCLUDES DIFF/PLT) (8278) (Collection Date & Time - 10/10/2024 12:27 PM)* Value Reference Range W MALIK BLOOD CELL COUNT 7.1 3.8-10.8 - Thousan d/uL * R ED BLOOD CELL COUNT 3.95 3.80-5.10 - Million/ uL * H EMOGLOBIN 13.1 11.7-15.5 - g/dL * H EMATOCRIT 41.3 35.0-45.0 - % * M CV 104.6 H 80.0-100.0 - fL * M CH 33.2 H 27.0-33.0 - pg * M CHC 31.7 L 32.0-36.0 - g/dL * R DW 12.1 11.0-15.0 - % * P LATELET COUNT 200 140-400 - Thousand/u L * N EUTROPHILS 63.3 - % * A BSOLUTE NEUTROPHILS 4494 1543-6874 - cells/uL * L YMPHOCYTES 27.2 - % * A BSOLUTE LYMPHOCYTES 4018 220-2457 - cells/uL * M ONOCYTES 7.0 - % * A BSOLUTE MONOCYTES 497 200-950 - cells/uL * E OSINOPHILS 2.1 - % * A BSOLUTE EOSINOPHILS 149 15-500 - cells/uL * B ASOPHILS 0.4 - % * A BSOLUTE BASOPHILS 28 0-200 - cells/uL * M PV 11.0 7.5-12.5 - fL * Marcie Hui Jovana 10/15/19 10:28:33 AM EDT > left Marcie Hui N 10/15/2024 03:15:56 PM EDT > pt informedThis lab was reviewed by Marcie Hui on 10/15/2024 at 15:16 PM EDT ?LAB: VITAMIN D,25-OH,TOTAL,IA (51625) (Collection Date & Time - 10/10/2024 12:27 PM)* Value Reference Range V ITAMIN D,25-OH,TOTAL,IA 40 30-100 - ng/mL * Marcie Hui Jovana 10/15/19 10:28:33 AM EDT > left Marcie Hui N 10/15/2024 03:15:56 PM EDT > pt informedThis lab was reviewed by Marcie Hui on 10/15/2024 at 15:16 PM EDT Notes: continue statin therapy??4.?Stage 3a chronic kidney disease?LAB: LIPID PANEL, STANDARD (7600) (Collection Date & Time - 10/10/2024 12:27 PM)* Value Reference Range T RIGLYCERIDES 102 <150 - mg/dL * C HOLESTEROL, TOTAL 148 <200 - mg/dL * H DL CHOLESTEROL 73 > OR = 50 - mg/dL * L DL-CHOLESTEROL 56 - mg/dL (calc) * C HOL/HDLC RATIO 2.0 <5.0 - (calc) * N ON HDL CHOLESTEROL 75 <130 - mg/dL (calc) * Marcie Hui Jovana 10/15/19 10:28:33 AM EDT > left Marcie Hui Jovana 10/15/2024 03:15:56 PM EDT > pt informedThis lab was reviewed by Marcie Hui on 10/15/2024 at 15:16 PM EDT ?LAB: COMPREHENSIVE METABOLIC PANEL (17747) (Collection Date & Time - 10/10/2024 12:27 PM)* Value Reference Range G LUCOSE 78 65-99 - mg/dL * U NISHANT NITROGEN (BUN) 32 H 7-25 - mg/dL * C REATININE 0.97 H 0.60-0.95 - mg/dL * B UN/CREATININE RATIO 33 H 6-22 - (calc) * S ODIUM 140 135-146 - mmol/L * P OTASSIUM 4.4 3.5-5.3 - mmol/L * C HLORIDE 102 98-110 - mmol/L * C ARBON DIOXIDE 28 20-32 - mmol/L * C ALCIUM 10.1 8.6-10.4 - mg/dL * P ROTEIN, TOTAL 7.6 6.1-8.1 - g/dL * A LBUMIN 4.3 3.6-5.1 - g/dL * G LOBULIN 3.3 1.9-3.7 - g/dL (calc ) * A LBUMIN/GLOBULIN RATIO 1.3 1.0-2.5 - (calc) * B ILIRUBIN, TOTAL 0.6 0.2-1.2 - mg/dL * A LKALINE PHOSPHATASE 54 37-153 - U/L * A ST 21 10-35 - U/L * A LT 13 6-29 - U/L * E GFR 58 L > OR = 60 - mL/min/1 .73m2 * Marcie Hui 10/15/19 10:28:33 AM EDT > left vm Marcie Hui N 10/15/2024 03:15:56 PM EDT > pt informedThis lab was reviewed by Marcie Hui on 10/15/2024 at 15:16 PM EDT ?LAB: CBC (INCLUDES DIFF/PLT) (9004) (Collection Date & Time - 10/10/2024 12:27 PM)* Value Reference Range W MALIK BLOOD CELL COUNT 7.1 3.8-10.8 - [place] d/uL * R ED BLOOD CELL COUNT 3.95 3.80-5.10 - Million/ uL * H EMOGLOBIN 13.1 11.7-15.5 - g/dL * H EMATOCRIT 41.3 35.0-45.0 - % * M CV 104.6 H 80.0-100.0 - fL * M CH 33.2 H 27.0-33.0 - pg * M CHC 31.7 L 32.0-36.0 - g/dL * R DW 12.1 11.0-15.0 - % * P LATELET COUNT 200 140-400 - Thousand/u L * N EUTROPHILS 63.3 - % * A BSOLUTE NEUTROPHILS 4494 4502-0233 - cells/uL * L YMPHOCYTES 27.2 - % * A BSOLUTE LYMPHOCYTES 5460 233-5225 - cells/uL * M ONOCYTES 7.0 - % * A BSOLUTE MONOCYTES 497 200-950 - cells/uL * E OSINOPHILS 2.1 - % * A BSOLUTE EOSINOPHILS 149 15-500 - cells/uL * B ASOPHILS 0.4 - % * A BSOLUTE BASOPHILS 28 0-200 - cells/uL * M PV 11.0 7.5-12.5 - fL * Marcie Hui 10/15/19 10:28:33 AM EDT > left vm Marcie Hui 10/15/2024 03:15:56 PM EDT > pt informedThis lab was reviewed by Marcie Hui on 10/15/2024 at 15:16 PM EDT ?LAB: VITAMIN D,25-OH,TOTAL,IA (75062) (Collection Date & Time - 10/10/2024 12:27 PM)* Value Reference Range V ITAMIN D,25-OH,TOTAL,IA 40 30-100 - ng/mL * Marcie Hui 10/15/19 10:28:33 AM EDT > left vm Marcie Hui 10/15/2024 03:15:56 PM EDT > pt informedThis lab was reviewed by Marcie Hui on 10/15/2024 at 15:16 PM EDT Notes: stable??5.?Primary osteoarthritis involving multiple joints? Notes: continue tylenol as needed??6.?Osteoporosis, post-menopausal?LAB: LIPID PANEL, STANDARD (7600) (Collection Date & Time - 10/10/2024 12:27 PM)* Value Reference Range T RIGLYCERIDES 102 <150 - mg/dL * C HOLESTEROL, TOTAL 148 <200 - mg/dL * H DL CHOLESTEROL 73 > OR = 50 - mg/dL * L DL-CHOLESTEROL 56 - mg/dL (calc) * C HOL/HDLC RATIO 2.0 <5.0 - (calc) * N ON HDL CHOLESTEROL 75 <130 - mg/dL (calc) * Marcie Hui 10/15/19 10:28:33 AM EDT > left vm Marcie Hui N 10/15/2024 03:15:56 PM EDT > pt informedThis lab was reviewed by Marcie Hui on 10/15/2024 at 15:16 PM EDT ?LAB: COMPREHENSIVE METABOLIC PANEL (29526) (Collection Date & Time - 10/10/2024 12:27 PM)* Value Reference Range G LUCOSE 78 65-99 - mg/dL * U NISHANT NITROGEN (BUN) 32 H 7-25 - mg/dL * C REATININE 0.97 H 0.60-0.95 - mg/dL * B UN/CREATININE RATIO 33 H 6-22 - (calc) * S ODIUM 140 135-146 - mmol/L * P OTASSIUM 4.4 3.5-5.3 - mmol/L * C HLORIDE 102 98-110 - mmol/L * C ARBON DIOXIDE 28 20-32 - mmol/L * C ALCIUM 10.1 8.6-10.4 - mg/dL * P ROTEIN, TOTAL 7.6 6.1-8.1 - g/dL * A LBUMIN 4.3 3.6-5.1 - g/dL * G LOBULIN 3.3 1.9-3.7 - g/dL (calc ) * A LBUMIN/GLOBULIN RATIO 1.3 1.0-2.5 - (calc) * B ILIRUBIN, TOTAL 0.6 0.2-1.2 - mg/dL * A LKALINE PHOSPHATASE 54 37-153 - U/L * A ST 21 10-35 - U/L * A LT 13 6-29 - U/L * E GFR 58 L > OR = 60 - mL/min/1 .73m2 * Marcie Hui Jovana 10/15/19 10:28:33 AM EDT > left vm Marcie Hui N 10/15/2024 03:15:56 PM EDT > pt informedThis lab was reviewed by Marcie Hui on 10/15/2024 at 15:16 PM EDT ?LAB: CBC (INCLUDES DIFF/PLT) (6399) (Collection Date & Time - 10/10/2024 12:27 PM)* Value Reference Range W MALIK BLOOD CELL COUNT 7.1 3.8-10.8 - Thousan d/uL * R ED BLOOD CELL COUNT 3.95 3.80-5.10 - Million/ uL * H EMOGLOBIN 13.1 11.7-15.5 - g/dL * H EMATOCRIT 41.3 35.0-45.0 - % * M CV 104.6 H 80.0-100.0 - fL * M CH 33.2 H 27.0-33.0 - pg * M CHC 31.7 L 32.0-36.0 - g/dL * R DW 12.1 11.0-15.0 - % * P LATELET COUNT 200 140-400 - Thousand/u L * N EUTROPHILS 63.3 - % * A BSOLUTE NEUTROPHILS 4494 2854-8205 - cells/uL * L YMPHOCYTES 27.2 - % * A BSOLUTE LYMPHOCYTES 2706 590-2627 - cells/uL * M ONOCYTES 7.0 - % * A BSOLUTE MONOCYTES 497 200-950 - cells/uL * E OSINOPHILS 2.1 - % * A BSOLUTE EOSINOPHILS 149 15-500 - cells/uL * B ASOPHILS 0.4 - % * A BSOLUTE BASOPHILS 28 0-200 - cells/uL * M PV 11.0 7.5-12.5 - fL * Marcie Hui Jovana 10/15/19 10:28:33 AM EDT > left vm Marcie Hui Jovana 10/15/2024 03:15:56 PM EDT > pt informedThis lab was reviewed by Marcie Hui on 10/15/2024 at 15:16 PM EDT ?LAB: VITAMIN D,25-OH,TOTAL,IA (22079) (Collection Date & Time - 10/10/2024 12:27 PM)* Value Reference Range V ITAMIN D,25-OH,TOTAL,IA 40 30-100 - ng/mL * Marcie Hui 10/15/19 10:28:33 AM EDT > left Marcie Hui 10/15/2024 03:15:56 PM EDT > pt informedThis lab was reviewed by Marcie Hui on 10/15/2024 at 15:16 PM EDT 7.?Hypercalcemia?LAB: LIPID PANEL, STANDARD (7600) (Collection Date & Time - 10/10/2024 12:27 PM)* Value Reference Range T RIGLYCERIDES 102 <150 - mg/dL * C HOLESTEROL, TOTAL 148 <200 - mg/dL * H DL CHOLESTEROL 73 > OR = 50 - mg/dL * L DL-CHOLESTEROL 56 - mg/dL (calc) * C HOL/HDLC RATIO 2.0 <5.0 - (calc) * N ON HDL CHOLESTEROL 75 <130 - mg/dL (calc) * Marcie Hui 10/15/19 10:28:33 AM EDT > left Marcie Hui 10/15/2024 03:15:56 PM EDT > pt informedThis lab was reviewed by Marcie Hui on 10/15/2024 at 15:16 PM EDT ?LAB: COMPREHENSIVE METABOLIC PANEL (84182) (Collection Date & Time - 10/10/2024 12:27 PM)* Value Reference Range G LUCOSE 78 65-99 - mg/dL * U NISHANT NITROGEN (BUN) 32 H 7-25 - mg/dL * C REATININE 0.97 H 0.60-0.95 - mg/dL * B UN/CREATININE RATIO 33 H 6-22 - (calc) * S ODIUM 140 135-146 - mmol/L * P OTASSIUM 4.4 3.5-5.3 - mmol/L * C HLORIDE 102 98-110 - mmol/L * C ARBON DIOXIDE 28 20-32 - mmol/L * C ALCIUM 10.1 8.6-10.4 - mg/dL * P ROTEIN, TOTAL 7.6 6.1-8.1 - g/dL * A LBUMIN 4.3 3.6-5.1 - g/dL * G LOBULIN 3.3 1.9-3.7 - g/dL (calc ) * A LBUMIN/GLOBULIN RATIO 1.3 1.0-2.5 - (calc) * B ILIRUBIN, TOTAL 0.6 0.2-1.2 - mg/dL * A LKALINE PHOSPHATASE 54 37-153 - U/L * A ST 21 10-35 - U/L * A LT 13 6-29 - U/L * E GFR 58 L > OR = 60 - mL/min/1 .73m2 * Marcie Hui 10/15/19 10:28:33 AM EDT > left vm Marcie Hui 10/15/2024 03:15:56 PM EDT > pt informedThis lab was reviewed by Marcie Hui on 10/15/2024 at 15:16 PM EDT ?LAB: CBC (INCLUDES DIFF/PLT) (9407) (Collection Date & Time - 10/10/2024 12:27 PM)* Value Reference Range W MALIK BLOOD CELL COUNT 7.1 3.8-10.8 - Thousan d/uL * R ED BLOOD CELL COUNT 3.95 3.80-5.10 - Million/ uL * H EMOGLOBIN 13.1 11.7-15.5 - g/dL * H EMATOCRIT 41.3 35.0-45.0 - % * M CV 104.6 H 80.0-100.0 - fL * M CH 33.2 H 27.0-33.0 - pg * M CHC 31.7 L 32.0-36.0 - g/dL * R DW 12.1 11.0-15.0 - % * P LATELET COUNT 200 140-400 - Thousand/u L * N EUTROPHILS 63.3 - % * A BSOLUTE NEUTROPHILS 4494 7715-5853 - cells/uL * L YMPHOCYTES 27.2 - % * A BSOLUTE LYMPHOCYTES 5168 468-8513 - cells/uL * M ONOCYTES 7.0 - % * A BSOLUTE MONOCYTES 497 200-950 - cells/uL * E OSINOPHILS 2.1 - % * A BSOLUTE EOSINOPHILS 149 15-500 - cells/uL * B ASOPHILS 0.4 - % * A BSOLUTE BASOPHILS 28 0-200 - cells/uL * M PV 11.0 7.5-12.5 - fL * Korina Marcie N 10/15/19 10:28:33 AM EDT > left vm Jaron Huichon Whaley 10/15/2024 03:15:56 PM EDT > pt informedThis lab was reviewed by Marcie Hui on 10/15/2024 at 15:16 PM EDT ?LAB: VITAMIN D,25-OH,TOTAL,IA (41016) (Collection Date & Time - 10/10/2024 12:27 PM)* Value Reference Range V ITAMIN D,25-OH,TOTAL,IA 40 30-100 - ng/mL * Marcie Hui 10/15/19 10:28:33 AM EDT > left HardyJaron alvarezchon Whaley 10/15/2024 03:15:56 PM EDT > pt informedThis lab was reviewed by Marcie Hui on 10/15/2024 at 15:16 PM EDT * Labs: * L ab: TEST AUTHORIZATION Value Reference Range T EST NAME: VITAMIN B12/FOLATE, - * T EST CODE: 7065SB - * C GAIL CONTACT: SAMIRA BLACK - * [employer], support 10/04 02:30:17 : This order was created by the Interface.This lab was reviewed by Sloane Sweeney on 10/14/2024 at 17:36 PM EDT ?Lab: VITAMIN B12/FOLATE, SERUM PANEL (7065)* Value Reference Range F OLATE, SERUM >24.0 - ng/mL * V ITAMIN B12 898 780-8235 - pg/mL * [employer], support 10/04 02:30:18 : This order was created by the Interface. Marcie Hui 10/15/2024 03:15:56 PM EDT > pt informedThis lab was reviewed by Marcie Hui on 10/15/2024 at 15:16 PM EDT * Procedure Codes: G 0439 ANNUAL WELLNESS VST; PPS SUBSQT VST, G8399 PT W/DXA DOCUMENT OR ORDER, 1124F ADVANCED DIRECTIVE - NO LIVING WILL, G8417 BMI >=30 CALCUATE W/FOLLOWUP, G8510 NEGATIVE SCREENING F/U NOT REQUIRED, G9903 Pt scrn tbco id as non user, G8752 Most recent systolic blood pressure < 140mmhg, G8754 Most recent diastolic blood pressure < 90mmhg, G9744 PATIENT NOT ELIG D/T ACTIVE DX HTN * Preventive Medicine: Counseling: L iving will A dditional information provided. C are goal follow up plan B VT management provided Y es. PRETTY Screening: F alls: Future screening for fall risks H ave you had two or more falls in the past year? N o, H ave you had any falls with injury in the past year? N o. Depression Screening: P HQ 2 F eeling down depressed or hopeless N o. Immunizations: i nfluenza H ave you had a flu shot since the most recent November 04 ? Y es. P neumonia vaccine: Status for Older Adults A re you up-to-date on your pneumonia vaccine? yes or no y es. S hingrix D iscussed and will consider. C OVID C ompleted series. R SV vaccination C ompleted for season. Screening / Special Tests: M ammogram . P ap Smear o fritz age 67 years.?Colonoscopy 2 017, rec repeat [address] Lopez in [place]. Tubular adenoma. Beyond routine screening age. B one mineral Density . L dora Cancer Screening N ot indicated - nonsmoker. * Follow Up: 6 Months * * Sign off status: Completed true * Provider: KATH Franklin Date: 0 10/10/2024 Generated for Luann oconnor/Sandy/Bud on: 0 11/25/2024 09:14 AM EDT History and Physical Notes * HPI (History of Present Illness) Category Sub-Category Detail Notes Category Not es Cardiology shortness of breath chest pain palpitations dizziness leg edema fatigue cyanosis diaphoresis Hip/Thigh Uses tylenol BI D as noted for back and joint pain which she feels is stable overall. Examination Category Sub-Category Detail Notes Category Not es Cardiology Lungs: no rales or wheezes Heart sounds: regular, normal S1, S2, no S3 or S4 Abdomen: soft, BS present, NT /ND, no masses Carotid upstroke: normal, no bruit Lower extremities no leg edema, arthri tic changes of hands, wrists Murmur, click , gallop: soft systolic Peripheral pulses: 2 plus bilateral General appearance pleasant, NAD skin without acute rashes Consultation Request Notes Referral Date Referring Provider Referred Provider Not es 10/12/2024 Sloane Sweeney , Mamm and DEX A, morning appt
--- OUTSIDE RECORDS SUMMARY | 2024-10-14 12:01 | XMS_ITS ---
Author Organization [facility] Address [address] [place] [address] Care Team Providers Care Program Eligibility Specialist Name Role Phone Sloane Sweeney Primary Care Provider REASON FOR VISIT mamm and dexa orders Encounters Encounter Location Date Provider Diagnosis [facility] [address] [place], [place] [address] 10/14/2024 Sloane Sweeney Visit for screening mammogram Z12.31 and Asymptomatic age-related postmenopausal state Z78.0 Assessments Encounter Date Diagnosis (ICD Code) Assessment Notes Treatment Notes Treatment Clinical Notes Section Notes 10/14/2024 Visit for screening mammogram (ICD-10 - Z12.31) 10/14/2024 Asymptomatic age-related postmenopausal state (ICD-10 - Z78.0) Plan Of Treatment Pending Test Test Name Order Date DEXA Hip and Spine - Screening 5 Mammogram : Bilateral 10/14/2024 Progress Notes * Marilu SWEENEYcalDOB:[birth year] (84 yo F)Acc No.[id number]:10/14/2024 Patient: Rox SHERIDAN :1940 A ge:84 Y S ex:Female Address:[facility] [address], [place], [address] Subjective: * Chief Complaints: * M amm and dexa orders * Medical History: * Surgical History: * Hospitalization/Major Diagno stic Procedure: * Medications: Objective: * Vitals: * Physical Examination: Assessment: * Assessment: 1. V isit for screening mammogram - Z12.31 2 . A symptomatic age-related postmenopausal state - Z78.0 Plan: * Treatment: 2.?Asymptomatic age-related postmenopausal state?Imaging: DEXA Hip and Spine - Screening* * Procedure Codes: * true * Date: Generated for Luann oconnor/Sandy/Bud on: 0 11/25/2024 09:14 AM EDT
--- NOTE | 2024-11-25 08:48 | MM_ITS ---
PROCEDURE INFORMATION: Exam: MG Bilateral Screening 3D Mammography Exam date and time: 11/25/2024 9:10 AM Age: 84 years old Clinical indication: Screening examination TECHNIQUE: Imaging protocol: Bilateral Screening tomosynthesis and 2D mammography including computer-aided detection (CAD) when performed. COMPARISON: MG MM DIG SCREENING MAMM BI W/CAD 09/27/2023 10:29 AM FINDINGS: MAMMOGRAPHY: Breast composition: There are scattered areas of fibroglandular density. Mass: None. Architectural distortion: None. Calcifications: No suspicious calcifications. Asymmetric density: None. Skin thickening: None. Axillary adenopathy: None. IMPRESSION: No mammographic evidence of malignancy. Annual screening is recommended unless otherwise clinically indicated. ASSESSMENT: BI-RADS Category 1: Negative.
--- NOTE | 2024-11-25 08:48 | XR_ITS ---
FINAL REPORT TECHNIQUE: Bone densitometry calculations of the lumbar spine and right hip were obtained. CLINICAL HISTORY: .screening COMPARISON: None FINDINGS: Using L1-4, the bone mineral density of the spine is 1.374 g/cm2, corresponding to T-score of 3.0 and a Z score of 5.8. This is within the range of normal. Using the right hip, the bone mineral density of the femoral neck is 0.841 g/cm2, corresponding to a T-score of -0.8 and a Z-score of 1.4. This is within the range of normal. NOTE: T-score: Standard deviation compared with peak bone mass of young adult mean. *Following the recommendations of the International Society of Bone densitometry, classification of hip BMD is based on the lower of two T-scores; total hip or femoral neck. IMPRESSION: 1. Bone mineral density of the lumbar spine within the range of normal. 2. Bone mineral density of the right femoral neck within the range of normal. Reviewed, Interpreted and Dictated by Ayaka Thorne MD Transcribed by Asha Merchant Authenticated and [facility]
--- OUTSIDE RECORDS SUMMARY | 2024-11-25 09:15 | XMS_ITS | Patient Health Record ---
Author Organization [facility] Address [address] [place] [address] Care Team Providers Care Emergency Department Technician Name Role Phone Sloane Sweeney Primary Care Provider [phone] Migration, Provider Unavailable Unavailable Allergies No Known Allergies Results Component Value Reference Range Notes TEST AUTHORIZATION Reviewed date:10/14/2024 05:36:33 PM Interpretation: Performing Lab:CB, [facility] [id number] [facility], [facility] CenterMgedIB[address] Jian Frias Notes/Report: NON-FASTING; NON-FASTING; NON-FASTING; NON-FASTING FASTING:YES FASTING: YES TEST NAME: VITAMIN B12/FOLATE, TEST CODE: [id number] CLIENT CONTACT: SAMIRA BLACK REPORT ALWAYS MESSAGE SIGNATURE The laboratory testing on this patient was verbally requested or confirmed by the ordering physician or his or her authorized residential sales representative after contact with an employee of [employer]. Federal regulations require that we maintain on file written authorization for all laboratory testing. Accordingly we are asking that the ordering physician or his or her authorized residential sales representative sign a copy of this report and promptly return it to the client solutions specialist. Signature: COMMENT Please fax this signed form to [phone]. Please do not attempt to return this document by other methods. Documents will not be viewed by a residential sales representative. Please do not use this fax number for other service requests. VITAMIN D,25-OH,TOTAL,IA (17 306) Reviewed date:10/15/2024 03:16:25 PM Interpretation: Performing Lab:AVA [facility] [id number] [facility], [facility] HomeSkidJN[address] Jian Frias Notes/Report: NON-FASTING; NON-FASTING; NON-FASTING; NON-FASTING FASTING:YES FASTING: YES VITAMIN D,25-OH,TOTAL,IA 40 30-100 ng/mL Vitamin D Status 25-OH Vitamin D: Deficiency: <20 ng/mL Insufficiency: 20 - 29 ng/mL Optimal: > or = 30 ng/mL For 25-OH Vitamin D testing on patients on D2-supplementation and patients for whom quantitation of D2 and D3 fractions is required, the QuestAssureD(TM) 25-OH VIT D, (D2,D3), LC/MS/MS is recommended: order code [id number] (patients >2yrs). See Note 1 Note 1 For additional information, please refer to http://education.[employer]/faq/FA Q199 (This link is being provided for informational/ educational purposes only.) VITAMIN B12/FOLATE, SERUM PA LEYLA (9257) Reviewed date:10/15/2024 03:16:25 PM Interpretation: Performing Lab:AVA [facility] [facility] [id number] [facility], [facility] HomeHpniYO[address] Jian Frias Notes/Report: NON-FASTING; NON-FASTING; NON-FASTING; NON-FASTING FASTING:YES FASTING: YES VITAMIN B12 892 774-3984 pg/mL FOLATE, SERUM >24.0 Reference Range Low: <3.4 Borderline: 3.4-5.4 Normal: >5.4 CBC (INCLUDES DIFF/PLT) (639 9) Reviewed date:10/15/2024 03:16:25 PM Interpretation: Performing Lab:[facility] [id number] [facility], [facility] HomeLjqmAD[address] Jian Frias Notes/Report: NON-FASTING; NON-FASTING; NON-FASTING; NON-FASTING [...] 30 to 32 g/dL) is most likely not clinically significant; however, it should be interpreted with caution in correlation with other red cell parameters and the patient's clinical condition. RDW 12.1 11.0-15.0 % PLATELET COUNT 200 140-400 Thousand/uL MPV 11.0 7.5-12.5 fL ABSOLUTE NEUTROPHILS 4494 0916-3196 cells/uL ABSOLUTE LYMPHOCYTES 8209 679-1752 cells/uL ABSOLUTE MONOCYTES 497 200-950 cells/uL ABSOLUTE EOSINOPHILS 149 15-500 cells/uL ABSOLUTE BASOPHILS 28 0-200 cells/uL NEUTROPHILS 63.3 LYMPHOCYTES 27.2 MONOCYTES 7.0 EOSINOPHILS 2.1 BASOPHILS 0.4 COMPREHENSIVE METABOLIC PANE L (92953) Reviewed date:10/15/2024 03:16:25 PM Interpretation: Performing Lab:CB, [facility] [id number] [facility], [facility] HomeWitlLN[address] Jian Frias Notes/Report: NON-FASTING; NON-FASTING; NON-FASTING; NON-FASTING [...] 21 10-35 U/L ALT 13 6-29 U/L LIPID PANEL, STANDARD (7600) Reviewed date:10/15/2024 03:16:25 PM Interpretation: Performing Lab:CB, [facility] [address], Reg KnappCplrUI[address] Jian Frias Notes/Report: NON-FASTING; NON-FASTING; NON-FASTING; NON-FASTING FASTING:YES FASTING: YES CHOLESTEROL, TOTAL 148 <200 mg/dL HDL CHOLESTEROL 73 > OR = 50 mg/dL TRIGLYCERIDES 102 <150 mg/dL LDL-CHOLESTEROL 56 Reference range: <100 Desirable range <100 mg/dL for primary prevention; <70 mg/dL for patients with CHD or diabetic patients with > or = 2 CHD risk factors. LDL-C is now calculated using the Stephen calculation, which is a validated novel method providing better accuracy than the Friedewald equation in the estimation of LDL-C. Keegan SS et al. SARAI. 2013;310(19): 3871-9938 (http://education.[employer].com/faq/F AQ164) CHOL/HDLC RATIO 2.0 <5.0 (calc) NON HDL CHOLESTEROL 75 <130 mg/dL (calc) For patients with diabetes plus 1 major ASCVD risk factor, treating to a non-HDL-C goal of <100 mg/dL (LDL-C of <70 mg/dL) is considered a therapeutic option. Reason For Referral Reason Mamm and DEXA, morni ng appt Diagnosis 1 Medicare annual well ness visit, subsequent (Z00.00) Referral Organization [facility] Referring Provider First Name Sloane Referring Provider Last Name Zahra Referring Provider Speciality [facility] Referred Organization [facility] Referred Address [address] [facility] [address] [facility], [place], [place],[address], Referred Provider Specialty Diagnostic R adiology Referral Priority Routine Medications Medication SIG (Take, Route, Frequency, Duration) Notes Start Date End Date Status Metoprolol Succinate ER 100 MG 1 tab(s) orally once a day; Duration: 90 days Active Caltrate 600+D Plus Minerals 600-800 MG-UNIT 1 tab(s) orally 2 times a day Active Ezetimibe 10 MG 1 tab(s) orally once a day; Duration: 90 days Active Aspirin 81 MG 1 TAB(S) ORALLY ONCE A DAY *Please review and pick correct strength-formulatio n from [employer] options. If intended option is not shown, discontinue and re-order from Quick Search* Active amLODIPine Besylate 2.5 MG 1 tablet Orally Once a day; Duration: 90 days Active Tylenol Extra Strength 500 MG 2 tab(s) orally twice daily Active Glucosamine-Chondroit in 1 TAB ORALLY TWICE DAILY *Please review and pick correct strength-formulatio n from [employer] options. If intended option is not shown, discontinue and re-order from Quick Search* Active FiberCon 6 CAPS ORALLY EVERY DAY *Please review and pick correct strength-formulatio n from [employer] options. If intended option is not shown, discontinue and re-order from Quick Search* Active VITAMIN B-100 COMPLEX TIMED RELEASE VITAMIN B COMPLEX 1 TAB(S) ORALLY ONCE A DAY *Please review for potential replacement for e-prescription and drug interaction check* Active Rosuvastatin Calcium 10 MG 1 tab(s) orally once a day; Duration: 90 days Active Alendronate Sodium 70 MG 1 tablet 30 minutes before the first food, beverage or medicine of the day with plain water Orally once a week; Duration: 84 days Active Claritin 10 MG 1 tab(s) orally once a day Active Immunizations Vaccine Route Administration Date Status Comme nts RSV Unknown 04/10/2023 Administered Prevnar PCV-13 (Pneumococcal conjugate 13) IM Intramuscular 07/29/2016 Administered Influenza (Fluzone)--Medicare only IM Intramuscular 12/17/2014 Administered Influenza (Fluzone)--Medicare only IM Intramuscular 01/04/2016 Administered Influenza (Fluzone)--Medicare only IM Intramuscular 12/15/2016 Administered Hep A Adult 2 Dose Unknown 08/30/2018 Administered Fluzone High Dose IM Intramuscular 11/23/2017 Administered Fluzone High Dose IM Intramuscular 12/27/2018 Administered Exp 11/03/19 Fluzone High Dose IM Intramuscular 11/26/2020 Administered Fluzone High Dose IM Intramuscular 12/20/2021 Administered Adacel (Tdap) Unknown 01/05/2016 Administered Problems Problem Type SNOMED Code ICD Code Onset Dates Problem Status W/U Status Risk Notes Problem Hyperlipidemia (15785306) Hyperlipidemia, unspecified (E78.5) Active confirmed Problem Hypercalcemia (60714991) Hypercalcemia (E83.52) Active confirmed Problem Snoring (95339793) Snoring (R06.83) Active confirmed Problem Syncope and collapse (948618346) Syncope and collapse (R55) Active confirmed Problem Allergic rhinitis (95680785) Allergic rhinitis (J30.9) Active confirmed Problem Essential hypertension (77723624) Essential hypertension (I10) Active confirmed Problem Palpitations (65261410) Heart palpitations (R00.2) Active confirmed Problem Body mass index 30.00 to 34.99 (360215417891269) BMI 31.0-31.9,adult (Z68.31) Active confirmed Problem Obese class I (586550165181306) BMI 33.0-33.9,adult (Z68.33) Active confirmed Problem Body mass index 30+ - obesity (906060991) BMI 30.0-30.9,adult (Z68.30) Active confirmed Problem Primary osteoarthritis (628612310) Primary osteoarthritis involving multiple joints (M15.0) Active confirmed Problem Acquired hammer toe of left foot (9864239656250562 ) Hammer toe of left foot (M20.42) Active confirmed Problem Body mass index 30.00 to 34.99 (532499195879681) Body mass index 34.0-34.9, adult (Z68.34) Active confirmed Problem Iron deficiency anemia (20076736) Iron deficiency anemia, unspecified iron deficiency anemia type (D50.9) Active confirmed Problem Occlusion and stenosis of multiple and bilateral cerebral arteries (393394313) Carotid stenosis, bilateral (I65.23) Active confirmed Problem BMI 25-29 - overweight (372257373) BMI 29.0-29.9,adult (Z68.29) Active confirmed Problem Urinary incontinence (326094932) Urinary incontinence, unspecified type (R32) Active confirmed Problem Osteopenia (881653804) Osteopenia, unspecified location (M85.80) Active confirmed Problem Chronic kidney disease stage 3 (disorder) (040425125) Stage 3 chronic kidney disease (N18.3) Active confirmed Problem Multiple premature ventricular complexes (296265996) Frequent PVCs (I49.3) Active confirmed Problem Sleep apnea (91120464) 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) Active confirmed Problem Mitral valve annular calcification (081588735) Mitral valve annular calcification (I05.9) Active confirmed Problem Age-related osteoporosis (383433575) Osteoporosis, 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) Active confirmed Problem Chronic kidney disease stage 3A (385109726) Stage 3a chronic kidney disease (N18.31) Active confirmed Vital Signs Heart Rate 60 /min 10/10/2024 Temperature 97.5 degrees Fahrenheit 10/10/2024 Blood pressure diastolic 70 mm Hg 10/10/2024 Height 63.25 in 10/10/2024 Blood pressure systolic 148 mm Hg 10/10/2024 Weight 178.4 lbs 10/10/2024 BMI 31.35 kg/m2 10/10/2024 Encounters Encounter Location Date Provider Diagnosis [facility] [address] [place] [address] 06/08/2024 Provider Migration [facility] [address] [place] [address] 11/28/2023 Sloane Sweeney Cognitive changes R41.89 [facility] [address] [place] [address] 05/06/2024 Sloane Sweeney Hyperlipidemia, unspecified E78.5 ; Essential hypertension I10 ; Stage 3a chronic kidney disease N18.31 ; Primary osteoarthritis involving multiple joints M15.0 and Cognitive changes R41.89 [facility] [address] [place] [address] 10/10/2024 Sloane Sweeney Essential hypertensi on I10 ; Medicare annual wellness visit, subsequent Z00.00 ; Hyperlipidemia, unspecified E78.5 ; Stage 3a chronic kidney disease N18.31 ; Primary osteoarthritis involving multiple joints M15.0 ; Osteoporosis, 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 ; Hypercalcemia E83.52 ; BMI 30.0-30.9,adult Z68.30 and Obesity, Class I, BMI 30-34.9 E66.811 [facility] [address] [address] 06/06/2024 Sloane Sweeney [facility] [address] [place], [place] [address] [facility] [address] [place], [place] [address] 10/09/2024 [facility] [address] [place], [place] [address] [facility] [address] [place], [place] [address] 10/14/2024 [facility] Visit for screening mammogram Z12.31 and Asymptomatic age-related postmenopausal state Z78.0 Assessments Encounter Date Diagnosis (ICD Code) Assessment Notes Treatment Notes Treatment Clinical Notes Section Notes 05/06/2024 Hyperlipidemia, unspecified (ICD-10 - E78.5) continue statin therapy 05/06/2024 Essential hypertension (ICD-10 - I10) well controlled on current regimen 10/10/2024 Essential hypertension (ICD-10 - I10) 10/10/2024 Medicare annual wellness visit, subsequent (ICD-10 - Z00.00) Repeat DEXA, if stable will DC Fosamax due to length of therapy Desires ongoing mammography Encouraged Shingrix vaccination at pharmacy 11/28/2023 Cognitive changes (ICD-10 - R41.89) Beta Amyloid ratio in the intermediate risk range Labs were good overall, mild anemia and elevated BUN - treatment recommendations reviewed in detail Monitor for now, consider MMSE every 6-12 months for comparison Vitamin recommendations reviewed and RESTORE-U packet reviewed in detail 10/14/2024 Visit for screening mammogram (ICD-10 - Z12.31) 10/14/2024 Asymptomatic age-related postmenopausal state (ICD-10 - Z78.0) 05/06/2024 Stage 3a chronic kidney disease (ICD-10 - N18.31) stable 10/10/2024 Hyperlipidemia, unspecified (ICD-10 - E78.5) continue statin therapy 05/06/2024 Primary osteoarthritis involving multiple joints (ICD-10 - M15.0) continue tylenol as needed 10/10/2024 Stage 3a chronic kidney disease (ICD-10 - N18.31) stable 10/10/2024 Primary osteoarthritis involving multiple joints (ICD-10 - M15.0) continue tylenol as needed 05/06/2024 Cognitive changes (ICD-10 - R41.89) MMSE last visit, KEARA today , mild impairment. suspect this is a complication of social isolation and we reviewed ways to improve recall and fluency, monitor. I gave her a print list of medications with appropriate administration times 10/10/2024 Osteoporosis, post-menopausal (ICD-10 - M81.0) 10/10/2024 Hypercalcemia (ICD-10 - E83.52) 10/10/2024 BMI 30.0-30.9,adult (ICD-10 - Z68.30) 10/10/2024 Obesity, Class I, BMI 30-34.9 (ICD-10 - E66.811) Plan Of Treatment Pending Test Test Name Order Date DEXA Hip and Spine - Screening EKG : In House 01/17/2019 Mammogram : Bilateral 10/14/2024 Holter Monitor, 48 hour 04/27/2017 H-VITAMIN B12 01/09/2017 H-VIT D, 25-HYDROXY 07/29/2016 M-Comprehensive Metabolic Panel 01/23/20 18 M-Comprehensive Metabolic Panel 04/23/19 21 M-Ferritin 06/01/2018 M-Lipid Panel 01/22/2018 M-Lipid Panel 04/23/2020 M-Vitamin B12 06/01/2018 M-Vitamin D 25 Hydroxy 04/23/2020 M-Vitamin D 25 Hydroxy 10/07/2019 M-Vitamin D 25 Hydroxy 01/22/2018 M-Folate 06/01/2018 M-Iron and TIBC 06/01/2018 Future Test Test Name Order Date M-Parathyroid Hormone Intact 10/21/2019 Insurance Providers Payer Name Payer Address Payer Phone Subscriber Number Group Number Insured Name Patient Relationship to Insured Coverage Start Date Coverage End Date [employer] [address] [address] [place] [address] [id number] Rox Sweeney Self - patient is the insured Medications Administered Medication Instructions Date of Administration Dosage Notes Triamcinolone Acetonide 40mg Injection 05/19/2018 1 mL Medical (General) History Medical History History ICD Code Hyperlipidemia, Hypertension Osteoporosis of hips, Fosamax started ar ound 2016 Colonoscopy 2016, tubular adenoma Heart murmur, mild , echo 04/2017 Carotid stenosis, doppler 2018 stable Mild positional NIKHIL, sleep study done hyperkalemia A+ blood type Surgical History Surgery Date(Month/Year) Tubal Ligation 1982 Appendectomy 2005 Lt hip replacement 2006 Rt knee replacement 2010 Lt knee replacement 2012 Heart cath 01/2023 [facility]order Hospitalization History Reason Date(Month/Year) gallbladder 04/23 observation for chest pain 2012 miscarriage 1974 broken ankle 1973 all above surgeries
--- OUTSIDE RECORDS SUMMARY | 2024-11-25 09:15 | XMS_ITS | Clinical Summary ---
Author Organization [facility] Address [address] [place] [address] Care Team Providers Care Training And Development Specialist Name Role Phone Lino Moreno MD Primary Care Provider [phone] Allergies Active Allergy Reactions Criticality Noted Date Comments Latex Rash Low 10/05/2020 Medications Calcium Polycarbophil (FIBERCON PO) Take by mouth. 6 tabs daily Active Misc Natural Products (Glucosamine Chond Cmp Advanced) tablet Take by mouth 2 (two) times a day. Active acetaminophen (Tylenol) 500 MG tablet Take by mouth every 6 (six) hours if needed. Active aspirin 81 MG EC tablet Take 81 mg by mouth 1 (one) time each day. Active Calcium Carbonate-Vitamin D (CALTRATE 600+D PO) Take by mouth 2 (two) times a day. Active B Complex Vitamins (VITAMIN B COMPLEX PO) Take by mouth 2 (two) times a day. Active loratadine (Claritin) 10 MG tablet Take 10 mg by mouth 1 (one) time each day. Active metoprolol succinate XL (Toprol-XL) 100 MG 24 hr tablet Take 100 mg by mouth 1 (one) time each day. Do not crush or chew. Active rosuvastatin (Crestor) 10 MG tablet Take 10 mg by mouth 1 (one) time each day. Active ezetimibe (Zetia) 10 MG tablet Take 10 mg by mouth 1 (one) time each day. Active alendronate (Fosamax) 70 MG tablet Take 70 mg by mouth every 7 (seven) days. Take in the morning with a full glass of water, on an empty stomach, and do not take anything else by mouth or lie down for the next 30 min. Active Active Problems Problem Noted Date Diagnosed Date Age related osteoporosis 09/30/2020 Hypertension 09/30/2020 Stage 3a chronic kidney disease 09/30/2020 Family History Medical History Relation Name Comments Heart disease Mother Uterine cancer Mother Relation Name Status Comments Mother Social History Tobacco Use Types Packs/Day Years Used Date Smoking Tobacco: Never Smokeless Tobacco: Never Alcohol Use Standard Drinks/Week Comments Never 0 (1 standard drink = 0.6 oz pur e alcohol) Comments Unknown Sex and Gender Information Value Date Recorded Sex Assigned at Not on file Legal Sex Female 6:31 PM EDT Gender Identity Not on file Sexual Orientation Not on file Last Filed Vital Signs Vital Sign Reading Time Taken Comments Blood Pressure 176/65 10/05/2020 11:44 AM EDT Pulse 54 10/05/2020 11:44 AM EDT Temperature - - Respiratory Rate - - Oxygen Saturation - - Inhaled Oxygen Concentration - - Weight 75.1 kg (165 lb 9.6 oz) 10/05/2020 11:44 AM EDT Height - - Body Mass Index - - Plan of Treatment Health Maintenance Due Date Last Done Comments [facility]-Bone Density Scan 1942 [facility]-Depression Screening 1942 [facility]-Medicare Annual Wellness (AWV) 1942 [facility]-/Child/Adol SDOH Screenings 1942 [facility]- SDOH Screenings 1960 [facility]-Adult SDOH Screenings 1960 [facility]-Zoster Vaccines (1 of 2) 1992 [facility]-RSV Vaccine: 60+ Years or (1 - 1-dose 75+ series) 2017 [facility]-Pneumococcal Vaccine: 50+ Years (2 of 2 - PCV20 or PCV21) 07/29/2017 07/29/2016 [id number] Vaccine ( - season) 2024 01/05/2022, 07/21/2021, 12/30/2020, Additional history exists [facility]-Influenza Vaccine (#1) 2024 11/16/2019, [facility]-DTaP,Tdap,and Td Vaccines (2 - Td or Tdap) 01/03/2026 01/04/2016, 05/08/1996 [facility]-Hepatitis A Vaccines Aged Out 08/30/2018 No longer eligible based on patient's age to complete this topic HPV Vaccines Aged Out No longer eligi ble based on patient's age to complete this topic [facility]-HIB Vaccines Aged Out No longer e ligible based on patient's age to complete this topic [facility]-IPV Vaccines Aged Out No longer e ligible based on patient's age to complete this topic [facility]-Rotavirus Vaccines Aged Out No lo nger eligible based on patient's age to complete this topic Insurance [place] [id number] [employer] MED[employer] Care Teams Training And Development Specialist Relationship Specialty Start Date End Date Lino Moreno MD [address] [place] [address] [address] [place] [address] PCP - General 07/17/20
--- OUTSIDE RECORDS SUMMARY | 2024-11-25 09:15 | XMS_ITS | Clinical Summary ---
[facility] Address [address] [place] [address] Care Team Providers Care Electrical Engineer Mep Name Role Phone Sloane Sweeney ABBEY Primary Care Provid er Social History Tobacco Use Types Packs/Day Years Used Date Smoking Tobacco: Never Assessed Abuse Screen Answer Date Recorded Unsafe at Home or Work/School Not on file Feels Threatened by Someone? Not on file 11/2022 Does Anyone Keep You from Co ntacting Others or Doint Things Outside the Home? Not on file 12/12/2022 Physical Sign of Abuse Present Not on file 1 Housing Stability Answer Date Recorded Current Living Arrangements Not on file 11/2022 Potentially Unsafe Housing Conditions Not on juan e 12/12/2022 Family and Community Support Answer Demond e Recorded Help with Day-to-Day Activities Not on file 12/12/2022 Lonely or Isolated Not on file 12/12/2022 Employment Answer Date Recorded Do you want help finding or keeping work or a brenda b? Not on file 12/12/2022 Disabilities Answer Date Recorded Concentrating, Remembering, or Making Decisions Difficulty Not on file 12/12/2022 Doing Errands Independently Difficulty Not on fi le 12/12/2022 Education Answer Date Recorded Help with school or training? Not on file Preferred Language Not on file 12/12/2022 Comments Unknown Sex and Gender Information Value Date Recorded Sex Assigned at Not on file Legal Sex Female 1:27 PM EDT Gender Identity Not on file Sexual Orientation Not on file Plan of Treatment Health Maintenance Due Date Last Done Comments DXA SCAN 1940 TDAP/TD VACCINES (1 - Tdap) 1961 COLOGUARD 1987 COLON CANCER SCREENING [address] COLONOGRAPHY 1987 FECAL OCCULT BLOOD TEST 1987 FIT Testing (1 year) 1987 Pneumococcal Vaccine 50+ (1 of 1 - PCV) 1992 ZOSTER VACCINE (1 of 2) 1992 ANNUAL PHYSICAL 12/08/2016 RSV Vaccine - Adults (1 - 1-dose 75+ series) 8 INFLUENZA VACCINE 10/04/2024 COVID-19 Vaccine ( - season) 2024 COLONOSCOPY 01/30/2027 01/30/2017 COLORECTAL CANCER SCREENING 01/30/2027 Procedures Procedure Name Priority Date/Time Associated Diagnosis Comments COLONOSCOPY Routine 01/30/2017 from Last 3 Months or Most Recently Relevant to Health Maintenance Results * Colonoscopy (01/30/2017) Renny Lopez MD SURGICAL HISTORY PROCEDURES Fi nal Result from Last 3 Months or Most Recently Relevant to Health Maintenance Insurance [employer] Care Teams Electrical Engineer Mep Relationship Specialty Start Date End Date Sloane Sweeney APRN [address] [facility] [address] [place] [id number] PCP - General Family Medicine 01/05/17
== END 2024-11-25 23:59 | disposition home or self-care (01) ==
LOC: RAD 08:46
PROVIDERS: PCP Nurse Practitioner Family; Visit Provider Nurse Practitioner Family
DX: Z12.31 Encounter for screening mammogram for malignant neoplasm of breast (principal); R92.323 Mammographic fibroglandular density, bilateral breasts; Z78.0 Asymptomatic menopausal state
CPT/HCPCS: 77063; 77067; 77080